=== PATIENT | female | born 1955 | race Caucasian/White ===

== ENCOUNTER 2023-12-29 18:06 | Emergency (ER) | payer OTHER, MEDICARE, SELFPAY ==
[2023-12-29 18:13] VITALS: BP 213/119
[2023-12-29 21:12] VITALS: BP 196/100
[2023-12-29 21:22] LABS: % Eosinophils 3.1 % (0-6); % Monocytes 4.7 % (1.7-9.3); % Neutrophils 77.2 % (42.2-75.2); Absolute Basophils 0.2 10^3/uL (0-0.2); Absolute Eosinophils 0.4 10^3/uL (0-0.7); Absolute Immature Granulocytes 0.2 10^3/uL (0-0.05); Absolute Lymphocytes 1.9 10^3/uL (1.2-3.4); Absolute Monocytes 0.7 10^3/uL (0.1-0.6); Absolute Neutrophils 11.1 10^3/uL (1.4-6.5); Hemoglobin 16.8 g/dL (12.0-16.0); Mean Corp Hgb Conc. 34.3 g/dL (33.0-37.0); Mean Corpuscular Hgb 30.2 pg (27.0-31.0); Mean Corpuscular Volume 88.1 fL (81.0-99.0); Mean Platelet Volume 8.9 fL (7.4-10.4); Nucleated Red Blood Cells % 0 %; Platelet Count 555 10^3/uL (130-400); Red Blood Cell Count 5.56 10^6/uL (4.20-5.40); Red Cell Dist. Width 15.2 % (11.5-14.5); White Blood Cell Count 14.4 10^3/uL (4.8-10.8)
--- NOTE | 2023-12-29 21:35 | ED.GENMED ---
History of Present Illness
<ANTONIA Patricia - Last Filed: 12/29/23 22:51>
General
Chief Complaint: Facial Problem
Source: patient
Time Seen by Provider: 12/29/23 19:28
Nursing documentation reviewed up to this point in time: agreed with
Travel History
Have you had any contact with someone who has COVID-19?: No
Do you have any symptoms of coronavirus? Fever > 100 degrees, chills, cough, shortness of breath, sore throat, loss of taste or smell, muscle aches, or headache?: No
History of Present Illness
History of Present Illness:
Patient is a 68-year-old female who presents to the ER for evaluation. She reports since last week she has had intermittent sharp jolt like pain to the left side of her face. She feels it in the front of her ear/left face left temporal area and
head. She does have a headache with this. She is unable to lay on the left side while she sleeps at nighttime. She has tried ibuprofen and Tylenol without relief. She denies any recent trauma. She denies any associated fever or chills. She
denies any nausea. Today she felt little dizzy with symptoms. She denies any actual neck pain. She denies any rash.
Past History
<ANTONIA Patricia - Last Filed: 12/29/23 22:51>
Past History
ED Past Medical History: HTN and Other (PNA); Negative NIDDM
ED Past Surgical History: Gynecological (Hysterectomy) and Orthopedic (Left meniscus repair)
Social History
Tobacco: Non-smoker
Alcohol: Occasional
Personal: Single
Living: with family
Review of Systems
<ANTONIA Patricia - Last Filed: 12/29/23 22:51>
Review of Systems
Allergies reviewed?: Yes
All Other Systems: ROS reviewed and negative except as documented in HPI and ROS
Constitutional: Reports no symptoms
Respiratory: Reports no symptoms
Cardiac: Reports no symptoms
ABD/GI: Reports no symptoms; Denies abdominal pain, nausea or vomiting
: Reports no symptoms
Musculoskeletal: Reports no symptoms
Neurological: Reports dizzy and other (intermittent frequent 'jolts of pain' to left face/head ); Denies weakness or numbness
Endocrine: Reports no symptoms
Hematologic/Lymphatic: Reports no symptoms
Psychiatric: Reports no symptoms
Phy Exam
<ANTONIA Patricia - Last Filed: 12/29/23 22:51>
General Physical Exam
General Presentation: no apparent distress
General age: appears stated age
General Skin: warm and dry
General Habitus: normal
General Mental: alert
General Hydration: appears well hydrated
ENT Exam
ENT Exam: EOMI and neck supple
Eye Exam
Eye Exam: PERRL and EOMI
Eye Exam General: PERRL: bilateral and EOM intact: bilateral
Pupil Exam: Bilateral: round and reactive
Neurological Exam
Neurological Exam: alert, oriented x3, no sensory deficits and speech normal
[place] Coma Scale
Eye Opening: Spontaneous
Verbal Response: Oriented
Motor Response: Obeys Commands
GCS Total Score: 15
Musculoskeletal Exam
Musculoskeletal Exam: full ROM and other (non tender to temporal artery )
<Sylvia Nunez MD - Last Filed: 12/29/23 22:46>
[place] Coma Scale
GCS Total Score: 15
Course
<ANTONIA Patricia - Last Filed: 12/29/23 22:51>
Orders/Labs/Results
Orders:
Orders
12/29/23 20:44
Vital Signs- Treatment ONCE
Frequency: Once
12/29/23 20:45
CT Head & Neck Angio W/wo IV Urgent
Comment:
Reason For Exam: left sided headache/neck pain
IV Insert/Care/Rem.- Treatment PRN
12/29/23 21:01
Complete Blood Count/With Diff Urgent
Comprehensive Metabolic Panel Urgent
12/29/23 22:44
Gabapentin [Neurontin] 300 mg PO NOW STA
Abnormal Lab Results
12/29/23
21:01
WBC 14.4 H 10^3/uL
(4.8-10.8)
RBC 5.56 H 10^6/uL
(4.20-5.40)
Hgb 16.8 H g/dL
(12.0-16.0)
Hct 49.0 H %
(37.0-47.0)
RDW 15.2 H %
(11.5-14.5)
Plt Count 555 H 10^3/uL
(130-400)
Abs Immat Gran (auto) 0.2 H 10^3/uL
(0-0.05)
Absolute Neuts (auto) 11.1 H 10^3/uL
(1.4-6.5)
Absolute Monos (auto) 0.7 H 10^3/uL
(0.1-0.6)
Immature Gran % 1.0 H %
(0-0.5)
Neutrophils % 77.2 H %
(42.2-75.2)
Lymphocytes % 13.0 L %
(20.5-51.1)
BUN 28 H mg/dl
(7-17)
12/29/23 21:01
12/29/23 21:01
Vital Signs
Initial and Last Documented VS:
Initial Vital Signs
Temp Pulse Resp BP Pulse Ox
97.4 F 90 18 213/119 97
12/29/23 18:13 12/29/23 18:13 02/17/24 18:13 12/29/23 18:13 12/29/23 18:13
Last Documented Vital Signs
Temp Pulse Resp BP Pulse Ox
97.7 F 87 18 196/100 95
12/29/23 21:12 12/29/23 21:12 12/29/23 21:12 12/29/23 21:12 12/29/23 21:12
Toddler Nanny consulted with Physician
Toddler Nanny consulted with physician?: Yes
Name of Physician Consulted: papo
<Sylvia Nunez MD - Last Filed: 12/29/23 22:46>
Orders/Labs/Results
Orders:
Orders
12/29/23 20:44
Vital Signs- Treatment ONCE
Frequency: Once
12/29/23 20:45
CT Head & Neck Angio W/wo IV Urgent
Comment:
Reason For Exam: left sided headache/neck pain
IV Insert/Care/Rem.- Treatment PRN
12/29/23 21:01
Complete Blood Count/With Diff Urgent
Comprehensive Metabolic Panel Urgent
12/29/23 22:44
Gabapentin [Neurontin] 300 mg PO NOW STA
Abnormal Lab Results
12/29/23
21:01
WBC 14.4 H 10^3/uL
(4.8-10.8)
RBC 5.56 H 10^6/uL
(4.20-5.40)
Hgb 16.8 H g/dL
(12.0-16.0)
Hct 49.0 H %
(37.0-47.0)
RDW 15.2 H %
(11.5-14.5)
Plt Count 555 H 10^3/uL
(130-400)
Abs Immat Gran (auto) 0.2 H 10^3/uL
(0-0.05)
Absolute Neuts (auto) 11.1 H 10^3/uL
(1.4-6.5)
Absolute Monos (auto) 0.7 H 10^3/uL
(0.1-0.6)
Immature Gran % 1.0 H %
(0-0.5)
Neutrophils % 77.2 H %
(42.2-75.2)
Lymphocytes % 13.0 L %
(20.5-51.1)
BUN 28 H mg/dl
(7-17)
12/29/23 21:01
12/29/23 21:01
Vital Signs
Initial and Last Documented VS:
Initial Vital Signs
Temp Pulse Resp BP Pulse Ox
97.4 F 90 18 213/119 97
12/29/23 18:13 12/29/23 18:13 12/29/23 18:13 12/29/23 18:13 12/29/23 18:13
Last Documented Vital Signs
Temp Pulse Resp BP Pulse Ox
97.7 F 87 18 196/100 95
12/29/23 21:12 12/29/23 21:12 12/29/23 21:12 12/29/23 21:12 12/29/23 21:12
<ANTONIA Patricia - Last Filed: 12/29/23 22:51>
MDM/Problems Addressed
Differential Diagnosis Includes:
Not limited to trigeminal neuralgia, zoster, less likely temporal arteritis as patient is nontender over temporal region, less likely intracranial tumor, dissection
MDM/Problems Addressed:
Symptoms consistent with likely trigeminal neuralgia. Patient no acute distress. She describes intermittent sharp jolting type pain to the left side of her face anterior to her ear. She denies any fever or chills. Patient in no acute distress
here in the ER no rash on exam. Patient presently without any symptoms.
She is nontoxic. Case discussed ED physician CT a head and neck angio performed no acute findings
As discussed ED physician will start gabapentin with close outpatient follow-up family doctor. Topamax was considered however we will hold off due to potential side effects
Chronic conditions affecting care:
Hypertension
<ANTONIA Patricia - Last Filed: 12/29/23 22:51>
*Radiology
Radiology exam reviewed: radiology read reviewed
*Pulse Oximetry
Patient hypoxic: no
*Critical Care Note
Total Time (30-74mins, 75-104mins- exclusive of procedures): Not Applicable
ED Attending Note
<ANTONIA Patricia - Last Filed: 12/29/23 22:51>
-
Portions of this chart may have been created with voice recognition software.� Occasional wrong word or��sound alike� substitutions may have occurred due to the inherent limitations of voice recognition software.
<Sylvia Nunez MD - Last Filed: 12/29/23 22:46>
ED Attending Note
Patient seen and examined by attending physician: Yes
I performed the substantive portion of visit, reviewed & personally made and approve the management plan that is documented in note by myself or RONY.: Yes
ED Attending Note:
68-year-old female who says that all week long she has had episodes of severe pain originating from the preauricular area and spreading across the left side of her face sometimes causing her left sided tear. Pain lasted 5 seconds at a time and then
goes away. It is interrupting her sleep. She denies associated headache, dizziness, numbness, tingling, focal weakness, double vision, facial droop, recent trauma, fever, chills, photophobia, or other complaints. On exam, no temporal artery
tenderness to palpation, neurologically intact. Comfortable. Clinically suspect trigeminal neuralgia as potential etiology. CTA generally unremarkable. Will refer for outpatient follow-up. I am reluctant to start carbamazepine at this time
given the potential for bloodline related effects such as neutropenia etc. and recommend that she discuss this with her primary this week. In the interim, will try to pain with Neurontin. Patient is agreeable to this and understands reasons return
to the ER for
Discharge Plan
Departure
Patient Disposition: Home (Routine Discharge)
Date of Disposition: 12/29/23
Time of Disposition: 22:48
Patient with high blood pressure during this ER visit?: Yes
Condition: Fair
Covid-19: Not Applicable
Discharge Problem:
trigeminal neuralgia
Instructions: Trigeminal neuralgia, BLOOD PRESSURE
Prescriptions:
New
gabapentin 300 mg capsule
300 mg PO TID PRN (Reason: pain ) Qty: 40 0RF
No Action
mupirocin 2 % ointment
1 applic topical DAILY
doxycycline hyclate 100 mg Capsule
100 mg PO Q12 Qty: 10 0RF
hydralazine 25 mg Tablet
50 mg PO TID Qty: 90 0RF
Referrals:
Efe Branham, [Family Provider] -
Activity Restrictions/Additional Instructions:
Symptoms are consistent most likely with trigeminal neuralgia. As discussed a prescription for gabapentin was sent to your pharmacy. Take as directed. This may cause drowsiness. Follow-up closely with your family doctor for further reevaluation
of symptoms. Please call Sunday for an appointment in the next 2 days. Have your family doctor review your formal CAT scan report.
We considered Topamax but we will hold off due to side effects however this may be a future treatment possibility.
Return to the ER if any worsening of symptoms
Interventions
Interventions:
*Risk Screen - Suicide Last Done: 12/29/23 18:56
*General Assessment Last Done: 12/29/23 18:56
*Neglect/Abuse Screening Last Done: 12/29/23 18:56
ED- Neurological Assessment Last Done: 12/29/23 18:57
ED-Skin Assessment Last Done: 12/29/23 18:57
[2023-12-29 21:44] LABS: ALT (SGPT) 25 U/L (0-35); AST (SGOT) 29 U/L (14-36); Albumin 4.6 g/dl (3.5-5.0); Alkaline Phosphatase 124 U/L (38-126); Blood Urea Nitrogen 28 mg/dl (7-17); Calcium 9.9 mg/dl (8.4-10.2); Carbon Dioxide 27 mmol/L (22-30); Chloride 103 mmol/L (98-107); Glucose 89 mg/dl (70-99); Potassium 4.8 mmol/L (3.5-5.1); Sodium 136 mmol/L (135-145); Total Bilirubin 0.6 mg/dl (0.2-1.3); Total Protein 7.1 g/dl (6.3-8.2); eGFR > 60.00
[2023-12-29] MEDS: NEURONTIN 300 MG PO (22:48)
[2023-12-29 22:49] VITALS: BP 190/108
== END 2023-12-29 23:00 | disposition home or self-care (01) ==
LOC: EMR 18:06
PROVIDERS: Nurse Practitioner; EMERGENCY PHYSICIAN Emergency Medicine; FAMILY PHYSICIAN Family Medicine
DX: G50.0 Trigeminal neuralgia (principal); I10 Essential (primary) hypertension
CPT/HCPCS: 99285; 70496; 70498; 80053; 85025; Q9967

== ENCOUNTER 2025-03-30 10:02 | Emergency (ER) | payer OTHER, MEDICARE, SELFPAY ==
[2025-03-30 10:11] VITALS: BP 173/104
--- NOTE | 2025-03-30 11:27 | ED.GENMED ---
History of Present Illness
General
Chief Complaint: Fall
Source: patient
Exam Limitations: none
Time Seen by Provider: 03/30/25 11:06
Nursing documentation reviewed up to this point in time: agreed with
History of Present Illness
History of Present Illness:
Patient is a 69-year-old female with history hypertension who presents to the emergency department with right flank pain after mechanical fall Sunday. Patient states she tripped over her ottoman late Sunday night as she was going to make sure
that her front door was locked. She states she landed on her right side on carpeted dwain with cement underneath. She was able to get up immediately following fall and did not have pain initially. Patient is confident that she did not hit her
head or lose consciousness.
She began to notice mild discomfort in her right flank on Sunday which has been progressively worsening since. Today patient is having significant pain in her right flank region much worse with movement.
Patient denies any chest pain, shortness of breath/difficulty breathing. She denies any neck pain. Patient denies any pain or numbness/tingling in the lower extremities. Patient has been urinating without difficulty. No abdominal pain. Patient
is ambulatory with steady gait.
She does not take any blood thinners.
Past History
Past History
ED Past Medical History: HTN and Other (PNA); Negative NIDDM
ED Past Surgical History: Gynecological (Hysterectomy) and Orthopedic (Left meniscus repair)
Social History
Tobacco: Non-smoker
Alcohol: Occasional
Personal: Single
Living: with family
Review of Systems
Review of Systems
Allergies reviewed?: Yes
All Other Systems: ROS reviewed and negative except as documented in HPI and ROS
Phy Exam
Physical Exam
Physical Exam:
Vitals: Hypertensive on arrival, otherwise vital signs stable. Afebrile
General: Patient is well appearing, no acute distress
Skin: Warm and dry, no rashes or lesions
Head: Normocephalic, atraumatic
Eyes: Sclera nonicteric.
Throat: Protecting airway
Neck: Normal ROM, no cervical spine tenderness, no meningismus
Cardiac: Regular rate and rhythm, no murmurs.
Pulm: Normal respiratory effort, no wheezes, rales, rhonchi heard on exam
.
Abdomen: Abdomen soft and nontender. No ecchymoses.
Back: Area of ecchymosis and reproducible tenderness to right posterior ribs/flank area. No crepitus
Extremities: Ecchymosis to right upper arm with mild reproducible tenderness. No obvious deformity of RUE with excellent ROM in right elbow and right shoulder. LUE and b/l lower extremities atraumatic and nontender with full ROM.
Neuro: AAOx3. Grossly intact.
Psychiatric: Normal affect.
Course
Orders/Labs/Results
Orders:
Orders
03/30/25 11:21
Acetaminophen [Tylenol] 650 mg PO NOW STA
Lidocaine [Lidocaine 4% Patch] 1 patch TOPICAL NOW STA
Apply Lidocaine patch(s) to:: R flank
Humerus, Right 2 Views [CR Humerus - Right Min 2 View*] Urgent
Comment:
Reason For Exam: Fall
Ribs, Right 3 View W/PA Chest [CR Ribs-right 3 Vw W/pa Chest*] Urgent
Comment:
Reason For Exam: Fall
03/30/25 12:31
Ketorolac [Toradol] 15 mg IM NOW STA
03/30/25 13:11
Incentive Spirometry [Rx Incentive Spirometry] [RESP] Urgent
Frequency: q1h while awake
Vital Signs
Initial and Last Documented VS:
Initial Vital Signs
Temp Pulse Resp BP Pulse Ox
98.3 F 92 18 173/104 98
03/30/25 10:11 03/30/25 10:11 03/30/25 10:11 03/30/25 10:11 03/30/25 10:11
Last Documented Vital Signs
Temp Pulse Resp BP Pulse Ox
98.3 F 87 16 147/80 98
03/30/25 10:11 03/30/25 13:30 03/30/25 13:30 03/30/25 13:30 03/30/25 13:30
MDM/Problems Addressed
Differential Diagnosis Includes:
Not limited to: rib fracture, rib contusion, muscle spasm, pneumothroax, etc
MDM/Problems Addressed:
69 year old female presenting with right flank discomfort following mechanical trip and fall 3 days ago. Fall was not associated with any head strike or loss of consciousness. Patient not on any blood thinners. She is ambulatory with steady gait
and denies any pain to her extremities. She did notice a bruise to her right arm, although denies significant pain in the area. Vitals and physical exam as above.
Patient is alert and oriented x 3 with no focal neurologic deficits. She does have a steady gait w/ full range of motion in b/l lower extremities. Ecchymosis to right upper arm noted although she has full range of motion and no other evidence of
traumatic injuries. There is bruising noted to right flank/right posterior lower ribs. Will obtain rib x-ray and x-ray of right humerus given significant ecchymosis. We treat pain with lidocaine patch, Tylenol and reassess.
Update: x-ray imaging negative for fracture. Suspect possible rib contusion although did discuss with patient possibly missing small nondisplaced rib fracture. However � patients pain seems to be under well control in ED. Feel stable for discharge
home with primary care f/u. Will provide incentive spirometer. Advised rest, ice/heat. NSAIDS/tylenol for pain. Patient comfortable w/ plan.
Chronic conditions affecting care:
N/A
Acute Exacerbation and/or Progression of Chronic Illness:
N/A
*Radiology
Radiology exam reviewed: preliminary read by ED provider (right rib xray and humerus xray reviewed by me - no acute fracture) and radiology read reviewed
*Pulse Oximetry
Patient hypoxic: no
*EKG
Interpreted by ED Provider?: NA
*Edge Stainer Machine Interpretation
Rate: Edge Stainer Machine- N/A
*Critical Care Note
Total Time (30-74mins, 75-104mins- exclusive of procedures): Not Applicable
ED Attending Note
-
Portions of this chart may have been created with voice recognition software.� Occasional wrong word or��sound alike� substitutions may have occurred due to the inherent limitations of voice recognition software.
Discharge Plan
Departure
Patient Disposition: Home (Routine Discharge)
Date of Disposition: 03/30/25
Time of Disposition: 13:13
Patient with high blood pressure during this ER visit?: Yes
Condition: Good
Covid-19: Not Applicable
Discharge Problem:
Fall, Contusion of rib on right side, Contusion of arm, right
Instructions: Contusion (DC), Rib fracture or bruised rib - ED discharge instructions, BLOOD PRESSURE
Prescriptions:
New
lidocaine 5 % adhesive patch,medicated
1 patch topical DAILY Qty: 15 0RF
Rx Instructions:
to affected area
No Action
mupirocin 2 % ointment
1 applic topical DAILY
doxycycline hyclate 100 mg Capsule
100 mg PO Q12 Qty: 10 0RF
hydralazine 25 mg Tablet
50 mg PO TID Qty: 90 0RF
gabapentin 300 mg capsule
300 mg PO TID PRN (Reason: pain ) Qty: 40 0RF
Referrals:
Efe Branham, DO [Family Provider] - Follow up in 5-7 days
Stand Alone Forms: Return to Work
Activity Restrictions/Additional Instructions:
RETURN TO THE EMERGENCY DEPARTMENT WITH ANY FEVER, SHORTNESS OF BREATH/DIFFICULTY BREATHING, COUGH, INTRACTABLE PAIN, SEVERE ABDOMINAL PAIN, WORSENING CURRENT SYMPTOMS, OR ANY OTHER CONCERNS
- As discussed�your x-ray imaging showed no evidence of acute fracture today of your right ribs or right humerus. I suspect you likely sustained a contusion to your ribs although we are unable to completely exclude a nondisplaced rib fracture.
- Prescription for lidocaine patches have been sent to your pharmacy. You should continue to take Tylenol and/or Motrin as needed for discomfort. You can apply ice/heat to the affected area.
- Continue to use the incentive spirometer 10 times per hour when awake.
- Follow-up with your primary care for further evaluation and to ensure that symptoms are improving
Monitor your symptoms closely and return to the emergency department with any acute worsening/new symptoms or any other concerns
Interventions
Interventions:
*Nursing Disposition Last Done: 03/30/25 13:37
ED-Musculoskeletal Assessment Last Done: 03/30/25 11:42
ED- Neurological Assessment Last Done: 03/30/25 11:42
ED-Skin Assessment Last Done: 03/30/25 11:42
Discharge Date and Time
Discharge Date/Time: 03/30/25 13:40
Print Language: BELARUSIAN
[2025-03-30] MEDS: LIDOCAINE 4% PATCH 1 PATCH TOPICAL (11:37)
[2025-03-30] MEDS: TYLENOL 650 MG PO (11:37)
[2025-03-30] MEDS: TORADOL 15 MG IM (12:45)
[2025-03-30 13:30] VITALS: BP 147/80
== END 2025-03-30 13:40 | disposition home or self-care (01) ==
LOC: EMR 10:02
PROVIDERS: EMERGENCY PHYSICIAN Emergency Medicine; FAMILY PHYSICIAN Family Medicine
DX: S20.211A Contusion of right front wall of thorax, initial encounter (principal); S40.021A Contusion of right upper arm, initial encounter; W22.8XXA Striking against or struck by other objects, initial encounter; I10 Essential (primary) hypertension; Z90.710 Acquired absence of both cervix and uterus
CPT/HCPCS: 99283; 96372; 71101; 73060

== ENCOUNTER 2025-10-09 23:00 | Inpatient (IN) | payer OTHER, SELFPAY ==
[2025-10-09 17:18] VITALS: BP 147/107
[2025-10-09 19:07] VITALS: BMI 28.4
[2025-10-09 19:35] LABS: Hematocrit 50.8 % (37.0-47.0); Hemoglobin 16.4 g/dL (12.0-16.0); Mean Corp Hgb Conc. 32.3 g/dL (33.0-37.0); Mean Corpuscular Volume 81.0 fL (81.0-99.0); Nucleated Red Blood Cells % 0 %; Platelet Count 381 10^3/uL (130-400); Red Cell Dist. Width 20.0 % (11.5-14.5)
[2025-10-09 19:44] LABS: INR 1.44; PT 17.7 Sec (11.4-14.6)
[2025-10-09 19:45] LABS: APTT 33.6 Sec (23.4-35.0)
[2025-10-09 19:54] LABS: ALT (SGPT) 24 U/L (0-35); AST (SGOT) 22 U/L (14-36); Albumin 3.5 g/dl (3.5-5.0); Alkaline Phosphatase 147 U/L (38-126); Blood Urea Nitrogen 26 mg/dl (7-17); Calcium 8.8 mg/dl (8.4-10.2); Carbon Dioxide 24 mmol/L (22-30); Chloride 106 mmol/L (98-107); Estimated Creatinine Clearance 41 ml/min; Glucose 94 mg/dl (70-99); Potassium 4.8 mmol/L (3.5-5.1); Sodium 134 mmol/L (135-145); Total Protein 5.9 g/dl (6.3-8.2); eGFR 54.39
[2025-10-09 19:55] VITALS: BP 135/95
[2025-10-09 20:00] VITALS: BP 134/92
[2025-10-09 20:13] LABS: Troponin I 0.262 ng/ml
--- NOTE | 2025-10-09 20:14 | ED.GENMED ---
History of Present Illness
<Mamadou Rodriguez MD, Resident - Last Filed: 10/09/25 22:27>
General
Chief Complaint: Swelling
Source: patient
Time Seen by Provider: 10/09/25 19:54
History of Present Illness
History of Present Illness:
Patient is a 70-year-old female with past medical history significant for essential hypertension, who is here for evaluation of bilateral leg swelling, left lower extremity greater than right lower extremity.
She was in her usual state of health 4 days ago,when she noticed some mild swelling on her legs, which became a little bit prominent on Sunday and then it progressed further on Sunday. Her left lower leg is more swollen as compared to the right
leg and is warm and red as compared to the right one.
She was at her primary care physician office a couple of days ago for evaluation of chronic cough, as per the patient, he was concerned about a mass in her lung and she was supposed to have a CT scan of chest done but was awaiting her serum
creatinine levels. She also saw a trial paralegal recently because of proteinuria but all her tests came back fine from nephrology perspective.
She is seeing wound care for a shallow ulcer on right lower leg, after removal of a mole from that site.
Other than the swelling, review of system is negative. Denies any fever, chills, shortness of breath, chest pain, lightheadedness or syncope.
Past History
<Mamadou Rodriguez MD, Resident - Last Filed: 10/09/25 22:27>
Past History
ED Past Medical History: HTN and Other (PNA); Negative NIDDM
ED Past Surgical History: Gynecological (Hysterectomy) and Orthopedic (Left meniscus repair)
Social History
Tobacco: Non-smoker
Alcohol: Occasional
Personal: Single
Living: alone (Independent in activities of daily living)
Review of Systems
<Mamadou Rodriguez MD, Resident - Last Filed: 10/09/25 22:27>
Review of Systems
Constitutional: Reports fever and fatigue
EENT: Reports no symptoms
Respiratory: Reports cough
Cardiac: Reports no symptoms
ABD/GI: Reports no symptoms
: Reports no symptoms
Musculoskeletal: Reports edema (Bilateral leg swelling)
Neurological: Reports no symptoms
Hematologic/Lymphatic: Reports no symptoms
Phy Exam
<Mamadou Rodriguez MD, Resident - Last Filed: 10/09/25 22:27>
General Physical Exam
General Presentation: well appearing and no apparent distress
General age: appears stated age
General Skin: warm and dry
General Habitus: normal
General Mental: alert
General Hydration: appears well hydrated
Cardiovascular Exam
Cardiovascular Exam: regular rate/rhythm and tachycardia
Pulmonary Exam
Pulmonary Exam: other (Breath sounds decreased on the right side)
Gastrointestinal Exam
Gastrointestinal Exam: normal bowel sounds, non tender and soft
Neurological Exam
Neurological Exam: alert, oriented x3 and no motor deficits
Musculoskeletal Exam
Musculoskeletal Exam: edema (Bilateral pedal edema extending up to the knees, LLE>RLE, pedal pulses palpable, left lower extremity is warm and red)
Psychiatric Exam
Psychiatric Exam: normal mood/affect
Scores
<Mamadou Rodriguez MD, Resident - Last Filed: 10/09/25 22:27>
Heart Failure Risk
Heart Failure Risk Score: Not Applicable
Course
<Mamadou Rodriguez MD, Resident - Last Filed: 10/09/25 22:27>
Orders/Labs/Results
Orders:
Orders
10/09/25 17:31
Lactic Acid Q4H
Comment: ON ICE, CANCEL 2ND ORDER IF FIRST LACTIC ACID LEVEL <2
10/09/25 19:17
Electrocardiogram (*1) Urgent
Reason for Study: Other
Other Reason for Exam: Edema
EKG- Treatment ONCE
10/09/25 19:22
Complete Blood Count/With Diff Urgent
Comprehensive Metabolic Panel Urgent
NT-proBNP Urgent
PT/INR [Prothrombin Time] Urgent
PTT Urgent
Troponin I Urgent
10/09/25 20:15
Legs, Bilateral US [US Periph Venous LOWER Ext Tyson] Urgent
Comment:
Reason For Exam: Bilateral leg swelling
10/09/25 21:43
Urinalysis Reflex To Culture Urgent
Date Specimen was Collected: 10/09/25
Time Specimen was Collected: 21:32
Urine Microscopic Reflex Cult Urgent
Urine Culture Urgent
GERARDO Source: U
Specimen Description:
Date Specimen was Collected: 10/09/25
Time Specimen was Collected: 21:32
10/09/25 22:15
Lactate Level [Lactic Acid] Urgent
Blood Culture Q30M
GERARDO Source: Blood/Venous
Specimen Description:
10/09/25 22:16
Vancomycin [Vancocin] 1,500 mg 0.9% Sodium Chloride 500 ml [Nss] 500 ml IV NOW
10/09/25 22:45
Blood Culture Q30M
GERARDO Source: Blood/Venous
Specimen Description:
Abnormal Lab Results
10/09/25 10/09/25
19:22 21:43
WBC 16.5 H 10^3/uL
(4.8-10.8)
RBC 6.27 H 10^6/uL
(4.20-5.40)
Hgb 16.4 H g/dL
(12.0-16.0)
Hct 50.8 H %
(37.0-47.0)
MCH 26.2 L pg
(27.0-31.0)
MCHC 32.3 L g/dL
(33.0-37.0)
RDW 20.0 H %
(11.5-14.5)
MPV 10.6 H fL
(7.4-10.4)
Abs Immat Gran (auto) 0.1 H 10^3/uL
(0-0.05)
Absolute Neuts (auto) 14.1 H 10^3/uL
(1.4-6.5)
Absolute Lymphs (auto) 1.1 L 10^3/uL
(1.2-3.4)
Absolute Monos (auto) 0.8 H 10^3/uL
(0.1-0.6)
Immature Gran % 0.7 H %
(0-0.5)
Neutrophils % 85.8 H %
(42.2-75.2)
Lymphocytes % 6.7 L %
(20.5-51.1)
PT 17.7 H Sec
(11.4-14.6)
Sodium 134 L mmol/L
(135-145)
BUN 26 H mg/dl
(7-17)
Creatinine 1.1 H mg/dL
(0.6-1.0)
Total Bilirubin 1.6 H mg/dl
(0.2-1.3)
Alkaline Phosphatase 147 H U/L
(38-126)
Troponin I 0.262 H* ng/ml
Total Protein 5.9 L g/dl
(6.3-8.2)
Ur Occult Blood Reflex 2+ A
(Negative)
Leukocyte Esterase Rfl 2+ A
(Negative)
Urine WBC (Reflex) 11-15 A /HPF
(0-5)
Urine Bacteria (Reflex) Many A
(Negative)
Urine Albumin (Reflex) 4+ A
(Neg - Trace)
10/09/25 19:22
10/09/25 19:22
Vital Signs
Initial and Last Documented VS:
Initial Vital Signs
Temp Pulse Resp BP Pulse Ox
99.5 F 127 18 147/107 97
10/09/25 17:18 10/09/25 17:18 10/09/25 17:18 10/09/25 17:18 10/09/25 17:18
Last Documented Vital Signs
Temp Pulse Resp BP Pulse Ox
99.5 F 111 31 142/99 97
10/09/25 17:18 10/09/25 22:00 10/09/25 22:00 10/09/25 22:00 10/09/25 20:15
<Brent Landin MD - Last Filed: 10/09/25 22:16>
Orders/Labs/Results
Orders:
Orders
10/09/25 17:31
Lactic Acid Q4H
Comment: ON ICE, CANCEL 2ND ORDER IF FIRST LACTIC ACID LEVEL <2
10/09/25 19:17
Electrocardiogram (*1) Urgent
Reason for Study: Other
Other Reason for Exam: Edema
EKG- Treatment ONCE
10/09/25 19:22
Complete Blood Count/With Diff Urgent
Comprehensive Metabolic Panel Urgent
NT-proBNP Urgent
PT/INR [Prothrombin Time] Urgent
PTT Urgent
Troponin I Urgent
10/09/25 20:15
Legs, Bilateral US [US Periph Venous LOWER Ext Tyson] Urgent
Comment:
Reason For Exam: Bilateral leg swelling
10/09/25 21:43
Urinalysis Reflex To Culture Urgent
Date Specimen was Collected: 10/09/25
Time Specimen was Collected: 21:32
Urine Microscopic Reflex Cult Urgent
Urine Culture Urgent
GERARDO Source: U
Specimen Description:
Date Specimen was Collected: 10/09/25
Time Specimen was Collected: 21:32
10/09/25 22:15
Lactate Level [Lactic Acid] Urgent
Blood Culture Q30M
GERARDO Source: Blood/Venous
Specimen Description:
10/09/25 22:16
Vancomycin [Vancocin] 1,500 mg 0.9% Sodium Chloride 500 ml [Nss] 500 ml IV NOW
10/09/25 22:45
Blood Culture Q30M
GERARDO Source: Blood/Venous
Specimen Description:
Abnormal Lab Results
10/09/25 10/09/25
19:22 21:43
WBC 16.5 H 10^3/uL
(4.8-10.8)
RBC 6.27 H 10^6/uL
(4.20-5.40)
Hgb 16.4 H g/dL
(12.0-16.0)
Hct 50.8 H %
(37.0-47.0)
MCH 26.2 L pg
(27.0-31.0)
MCHC 32.3 L g/dL
(33.0-37.0)
RDW 20.0 H %
(11.5-14.5)
MPV 10.6 H fL
(7.4-10.4)
Abs Immat Gran (auto) 0.1 H 10^3/uL
(0-0.05)
Absolute Neuts (auto) 14.1 H 10^3/uL
(1.4-6.5)
Absolute Lymphs (auto) 1.1 L 10^3/uL
(1.2-3.4)
Absolute Monos (auto) 0.8 H 10^3/uL
(0.1-0.6)
Immature Gran % 0.7 H %
(0-0.5)
Neutrophils % 85.8 H %
(42.2-75.2)
Lymphocytes % 6.7 L %
(20.5-51.1)
PT 17.7 H Sec
(11.4-14.6)
Sodium 134 L mmol/L
(135-145)
BUN 26 H mg/dl
(7-17)
Creatinine 1.1 H mg/dL
(0.6-1.0)
Total Bilirubin 1.6 H mg/dl
(0.2-1.3)
Alkaline Phosphatase 147 H U/L
(38-126)
Troponin I 0.262 H* ng/ml
Total Protein 5.9 L g/dl
(6.3-8.2)
Ur Occult Blood Reflex 2+ A
(Negative)
Leukocyte Esterase Rfl 2+ A
(Negative)
Urine WBC (Reflex) 11-15 A /HPF
(0-5)
Urine Bacteria (Reflex) Many A
(Negative)
Urine Albumin (Reflex) 4+ A
(Neg - Trace)
10/09/25 19:22
10/09/25 19:22
Vital Signs
Initial and Last Documented VS:
Initial Vital Signs
Temp Pulse Resp BP Pulse Ox
99.5 F 127 18 147/107 97
10/09/25 17:18 10/09/25 17:18 10/09/25 17:18 10/09/25 17:18 10/09/25 17:18
Last Documented Vital Signs
Temp Pulse Resp BP Pulse Ox
99.5 F 111 31 142/99 97
10/09/25 17:18 10/09/25 22:00 10/09/25 22:00 10/09/25 22:00 10/09/25 20:15
<Mamadou Rodriguez MD, Resident - Last Filed: 10/09/25 22:27>
MDM/Problems Addressed
Differential Diagnosis Includes:
Sepsis secondary to cellulitis
Deep venous thrombosis
Mismatch perfusion-elevated troponins
Heart failure
Chronic lymphedema
MDM/Problems Addressed:
Patient is here for bilateral leg swelling left lower extremity greater than right lower extremity, warm and red left lower extremity, small shallow ulcer on right lower leg which is secondary to mold removal at bedside.
On blood work, there is leukocytosis, polycythemia? Serum creatinine 1.1, total bilirubin 1.6, troponin elevated
Bilateral peripheral venous ultrasound, with no evidence of deep venous thrombosis.
Given her tachycardia, leukocytosis, fever and source of infection with warm and red swollen right leg, patient fulfills criteria for sepsis
Since patient responded to IV vancomycin in the past with continued that
plan to admit for further evaluation
<Mamadou Rodriguez MD, Resident - Last Filed: 10/09/25 22:27>
*Pulse Oximetry
SaO2: 97
Oxygen Mode of Delivery: Room air
Patient hypoxic: no
*Critical Care Note
Total Time (30-74mins, 75-104mins- exclusive of procedures): Not Applicable
ED Attending Note
<Mamadou Rodriguez MD, Resident - Last Filed: 10/09/25 22:27>
-
Portions of this chart may have been created with voice recognition software.� Occasional wrong word or��sound alike� substitutions may have occurred due to the inherent limitations of voice recognition software.
<Brent Landin MD - Last Filed: 10/09/25 22:16>
ED Attending Note
Patient seen and examined by attending physician: Yes
ED Attending Note:
I have seen and evaluated the patient with a [id number] encounter. I have spoken to the resident and involved in the medical history, the physical exam, medical decision making.
Evaluation and management service: agree unless noted differently below.
Results interpretation: agree unless noted differently below.
Focused HPI: 70-year-old female with a past medical history of hypertension who presents to the ER for evaluation of left leg pain and swelling. Patient reports onset of symptoms about a week ago and have been constant and progressive. She says
that she came to the ER because she is now very swollen and having trouble walking due to the pain. She says she had similar symptoms with an infection in the past. She does report that she has had some right leg swelling as well but that this is
status resection of a minor skin lesion. Aside from above symptoms she has not had fever or chills, chest pain, shortness of breath or any other acute complaints.
Physical exam: Awake and alert not in distress. She is tachycardic, mildly tachypneic, temp 37.5 �C. She has bilateral lower extremity edema left slightly greater than right. She has left calf tenderness. Mild erythema of the medial left calf.
She has a minor wound approximately dime sized on the medial right lower leg with small area of surrounding erythema. Good pulses throughout the left lower extremity. Lungs sound clear, no cardiac murmurs appreciated.
Medical Decision Makin-year-old female presents with leg pain and swelling progressive over the past week. Vitals and exam as above. Ultrasound of the legs is negative for DVT. Labs were sent off including a CBC which showed a leukocytosis
to 16.5. Predominant neutrophils on differential. Chemistry shows mild TONYA. She had cardiac enzymes and proBNP sent in triage which were slightly elevated but she does not have any signs of an acute coronary syndrome. Although she has lower
extremity edema she has no rales, no JVD and no symptoms of CHF otherwise. Overall with multiple SIRS criteria and pain, swelling of the leg concerning for possible cellulitis I would treat with antibiotics. Admit for monitoring. Discussed with
hospitalist.
Discharge Plan
Departure
Discharge Problem:
Cellulitis
Prescriptions:
No Action
losartan 50 mg Tablet
50 mg PO DAILY
Referrals:
Efe Branham, DO [Family Provider]
Interventions
Interventions:
*Risk Screen - Suicide Last Done: 10/09/25 17:18
*General Assessment Last Done: 10/09/25 19:56
*Neglect/Abuse Screening Last Done: 10/09/25 19:56
*ED- Fall Risk Assessment Last Done: 10/09/25 19:56
*ED COVID-19 Vaccine History Last Done: 10/09/25 19:56
*ED Influenza Vaccine History Last Done: 10/09/25 19:56
ED- Cardiac Assessment Last Done: 10/09/25 19:56
ED- Pulmonary Assessment Last Done: 10/09/25 19:56
ED-Skin Assessment Last Done: 10/09/25 19:56
Discharge Date and Time
Print Language: YAKUT
[2025-10-09 21:52] LABS: Urine Character Slightly Cloudy (Clear)
[2025-10-09 22:00] VITALS: BP 142/99
[2025-10-09 22:01] LABS: Urine Squamous Cell 0-2 /LPF (Few)
[2025-10-09 22:02] LABS: Urine Red Blood Cell 0-2 /HPF (0-2)
[2025-10-09] MEDS: VANCOCIN 530 MG IV (22:45)
--- NOTE | 2025-10-09 22:57 | HPS.HSE ---
Family Physician
-
Family Physician: Efe Branham
Chief Complaint
-
leg swelling
History of Present Illness
70-year-old female past medical history of bilateral lower extremity cellulitis, hypertension, obesity, presenting for bilateral lower extremity swelling greater in the left leg than the right. 4 days ago she noticed some mild lower extremity
swelling which became prominent 3 days ago. Legs have become more warm and red. Patient denies fevers, chills, shortness of breath, chest pain or dizziness. She denies any chest pain, shortness of breath, weight gain.
She went to see primary care physician couple days ago for postnasal drip and cough for the past week. He performed a chest x-ray and he was concerned about a mass in her lung and she was supposed to have a CT scan of the chest but was awaiting
creatinine level. She recently saw transmission assembler due to proteinuria but the labs were unremarkable.
She had some dry skin in her right calf that was biopsied and since then she has erythema at that site which is stable.
She denies smoking or alcohol use.
Medical History
Past Medical History
Past Medical History: Reports Other (bilateral lower extremity cellulitis, hypertension, obesity,)
Past Surgical History: Reports Other (Gynecological (Hysterectomy) and Orthopedic (Left meniscus repair))
Social History
Tobacco: Non-smoker
Alcohol: None
Drug: None
Family History
Family History: Not pertinent
Allergies / Home Medications
Allergies reflects when Allergies were last updated in [employer].
Home Medications with original date entered in [employer]
Allergy/Medication List:
Allergies
Allergy/AdvReac Type Severity Reaction Status Date / Time
cefadroxil ([facility]) Allergy Unknown Verified 10/09/25 17:18
erythromycin base Allergy Hives Verified 10/09/25 17:18
Penicillins Allergy Rash Verified 10/09/25 17:18
Home Medications
losartan 50 mg tablet 50 mg PO DAILY 10/09/25
Review of Systems
-
History Source: Patient
A 12 point ROS was completed and negative except as noted: Yes
Constitutional: Reports No Symptoms
EENT: Reports No Symptoms
Respiratory: Reports No Symptoms
Cardiac: Reports No Symptoms
Abdomen/GI: Reports No Symptoms
: Reports No Symptoms
Musculoskeletal: Reports No Symptoms
Skin: Reports See HPI
Neurological: Reports No Symptoms
Endocrine: Reports No Symptoms
Hematologic/Lymphatic: Reports No Symptoms
Psych: Reports No Symptoms
Physical Exam
Vital Signs
Vital Signs
Temp Pulse Resp BP Pulse Ox
99.5 F 111 31 142/99 97
10/09/25 17:18 10/09/25 22:00 10/09/25 22:00 10/09/25 22:00 10/09/25 20:15
Physical Exam
General: Well Developed, Well Nourished and No Apparent Distress
HEENT: NormoCephalic, Moist mucous membranes and Atraumatic
Respiratory: Clear
Cardiac: S1/S2 and Regular Rhythm; No Murmur or Rub
GI: Soft, Non Tender, Non Distended and Normal Bowel Sounds; No Organomegaly
Rectal: Deferred by Provider
Musculoskeletal: No Clubbing, No Cyanosis and No Edema
Skin: Other (bilateral leg erythema, edema, right leg erythematous are medial leg ); No Rash
Neuro: Nonfocal/grossly intact
Laboratory Results
-
10/09/25 19:22
10/09/25 19:22
Laboratory Results
PT 17.7 Sec (11.4-14.6) H 10/09/25 19:22
INR 1.44 10/09/25 19:22
APTT 33.6 Sec (23.4-35.0) 10/09/25 19:22
Lactic Acid 0.9 mmol/L (0.7-2.0) 10/09/25 22:40
Total Bilirubin 1.6 mg/dl (0.2-1.3) H 10/09/25 19:22
AST 22 U/L (14-36) 10/09/25 19:22
ALT 24 U/L (0-35) 10/09/25 19:22
Alkaline Phosphatase 147 U/L (38-126) H 10/09/25 19:22
Troponin I 0.262 ng/ml H* 10/09/25 19:22
Data Reviewed
-
Lab Data: Labs Reviewed by me
Old Records: Reviewed
Impression/Plan
-
IMPRESSION:
PLAN:
# Bilateral lower extremity cellulitis
# Prior history of bilateral lower extremity cellulitis
- Patient with tachycardia, leukocytosis
-Venous ultrasound negative for DVT
- Blood cultures pending
-vancomycin
- No signs of congestive heart failure despite cardiac BNP greater than 27,000
# Acute kidney injury
- Hold losartan
- IV fluids
# Medial right lower leg erythema/wound after biopsy
-Stable
- Wound care
# Nonischemic myocardial injury
- Troponin 0.26, continue to trend
- No chest pain
- EKG shows sinus tachycardia, left atrial enlargement, left axis deviation, LVH
# Recent cough/postnasal drip
# Concern for lung mass on CXR
-Check COVID and flu
- Chest x-ray reportedly showed lung mass and CT scan chest was recommended if renal function was normal
- Outpatient follow-up recommended
Essential hypertension
Obesity
History of polycythemia
- Appears stable
DNR/DNI
DVT prophylaxis�heparin
Regular diet
[2025-10-09 23:41] LABS: COVID-19 Antigen Negative (Negative)
[2025-10-10] VITALS (8 sets, daily range): BP systolic 89–144; BP diastolic 69–106; BMI 28.9
--- NOTE | 2025-10-10 01:15 | PTCARENOTE ---
Received patient from ED at approx 0110. Patient ambulated with assistance from stretcher to bed. AAA x 3. Oriented to room. Call tamez in place.
[2025-10-10] MEDS: NSS 1000 IV ×2 (01:46→12:15)
[2025-10-10 02:28] LABS: Troponin I 0.251 ng/ml
[2025-10-10 06:58] LABS: Hematocrit 50.3 % (37.0-47.0); Hemoglobin 16.1 g/dL (12.0-16.0); Mean Corp Hgb Conc. 32.0 g/dL (33.0-37.0); Mean Corpuscular Volume 83.3 fL (81.0-99.0); Nucleated Red Blood Cells % 0 %; Platelet Count 354 10^3/uL (130-400); Red Cell Dist. Width 20.1 % (11.5-14.5)
[2025-10-10 07:42] LABS: Troponin I 0.236 ng/ml
[2025-10-10] MEDS: HEPARIN 5000 UNITS SC (08:02)
[2025-10-10 08:15] LABS: ALT (SGPT) 21 U/L (0-35); AST (SGOT) 23 U/L (14-36); Albumin 3.2 g/dl (3.5-5.0); Alkaline Phosphatase 131 U/L (38-126); Blood Urea Nitrogen 24 mg/dl (7-17); Calcium 8.3 mg/dl (8.4-10.2); Carbon Dioxide 19 mmol/L (22-30); Chloride 108 mmol/L (98-107); Estimated Creatinine Clearance 45 ml/min; Glucose 90 mg/dl (70-99); Potassium 4.8 mmol/L (3.5-5.1); Sodium 134 mmol/L (135-145); Total Protein 5.6 g/dl (6.3-8.2); eGFR > 60.00
--- NOTE | 2025-10-10 08:28 | PHA.VAN.IN ---
Assessment
- Assessment
Renal Function: Appears similar to baseline
- Previous Dosing Experience
Previous Regimen: 1250mg q24h
Date of Regimen: 09/2023
Provided Trough of: n/a
Patient's SCR is: Similar to previous dosing experience
Patient's weight is: Decreased compared to previous dosing experience (67kg (now) vs 77kg (09/2023))
stopped after 2 doses
AUC Dosing Plan
- Dosing Variables
Dosing Weight (kg): 67.132
Dosing CrCl (ml/min): 45
Vd coefficient (L/kg): 0.7
- Empiric Dosing
Initial / Loading Dose: 1500mg 10/09
Maintenance Regimen: 1000mg q24h
Estimated AUC (mcg*h/mL): 520
Estimated Peak (mcg*h/mL): 33.6
Estimated Trough (mcg/ml): 12.9
Estimated Half Life (H): 16.6
Pharmacokinetics Vancomycin I
- -
Patient Age: 70
Patient Sex: Female
Vancomycin Day #: 1
Indication: Skin And Soft Tissue
Requesting Provider: Dr. Skaggs
Pertinent Antimicrobial Allergies:
pcns=rash
cefadroxil=unknown
erythromycin=hives
Height / Weight:
Height 5 ft
Actual Weight 67.132 kg
IBW in k.5
- Vital Signs / Lab Results
Temp Pulse Resp BP Pulse Ox
97.3 F 105 16 136/102 96
10/10/25 07:18 10/10/25 07:18 10/10/25 07:18 10/10/25 07:18 10/10/25 07:18
Lab Results - Hematology
10/09/25 10/10/25
19:22 06:47
WBC 16.5 H 13.6 H
Lab Results - Chemistry
10/09/25 10/10/25
19:22 06:47
BUN 26 H 24 H
Creatinine 1.1 H 1.0
Estimated Creat Clear 41 45
Albumin 3.5 3.2 L
10/09/25 10/09/25 10/09/25
17:31 21:30 22:40
Lactic Acid 0.9 Cancelled 0.9
Lab Results - Urine
10/09/25
21:43
Urine Nitrite (Reflex) Negative
Leukocyte Esterase Rfl 2+ A
Urine WBC (Reflex) 11-15 A
Ur Squamous Epith Cells 0-2
Urine Bacteria (Reflex) Many A
Microbiology Results
10/09/25 23:18 Influenza Types A & B (RAQUEL) - Final
Nasal Swab Negative for Influenza A & B, NAAT
Negative results must be combined with clinical observations
and patient history.
Nucleic Acid Amplification test (NAAT)performed on the
[employer] ID NOW platform.
--- NOTE | 2025-10-10 09:28 | CON.CAR ---
Addendum entered and electronically signed by Emmanuel Rodriguez MD 10/10/25 12:29:
I saw and evaluated the patient, and I provided the substantive portion of the medical decision making.
I reviewed and agree with the note by Ms Lewis and it accurately reflects our care.
I personally performed the medical decision making of the this encounter and my assessment and plan is below:
She tells me that she has gained maybe 6 pounds over the last several months. Additionally, her legs have increased in size. She also has some PND. Will continue IV diuresis for today and tomorrow with echocardiogram on Sunday.
Original Note:
Consultation
Consultation Request
Date/Time Consultation Requested: 10/10/25914
Date/Time Consultation Performed: 10/10/25919
Requesting Provider: Dr. Lan
Performing Provider: Destiney KNIGHT for Dr. Rodriguez
Reason for Consultation: CHF
Medical History
-
Chief Complaint: LE edema
History of Present Illness:
70 y/o female with hypertension who is here for evaluation of LE edema. She was admitted for sepsis in setting of suspected cellulitis and was given IV fluids and IV abx. ARB was held since creatinine was slightly elevated. LE u/s negative for DVT.
We are consulted for suspected CHF. Her proBNP and troponin are elevated. No CP or SOB. However, she reports a cough with laying flat and BLE edema over the past week. Denies any known weight gain. She had a mole removed from her RLE about 3.5 weeks
ago at [facility]- she reports it was noncancerous.
Past Medical History
Past Medical History: HTN
Social History
Tobacco: Non-Smoker
Alcohol: Occasional
Drug: None
Employment: Retired
Family History
Family History: Reviewed & Not Pertinent
Allergies / Home Medications
Allergy/AdvReac Type Severity Reaction Status Date / Time
cefadroxil (From [facility]) Allergy Unknown Verified 10/09/25 17:18
erythromycin base Allergy Hives Verified 10/09/25 17:18
Penicillins Allergy Rash Verified 10/09/25 17:18
�Medication �Instructions �Recorded �Confirmed �Type
losartan 50 mg tablet 50 mg PO DAILY 10/09/25 10/09/25 History
Review of Systems
-
History Source: Patient
All other systems: Negative unless noted
Respiratory: Cough
Musculoskeletal: Edema
Physical Exam
Vital Signs
Temp Pulse Resp BP Pulse Ox
97.3 F 105 16 136/102 96
10/10/25 07:18 10/10/25 07:18 10/10/25 07:18 10/10/25 07:18 10/10/25 07:18
Lab Results
10/10/25 06:47
10/10/25 06:47
Troponin I Cancelled 10/10/25 13:13
Xhb-F-Ubvikezaxsn Pept > 16379 pg/ml 10/09/25 19:22
Physical Exam
General: Well Developed, Well Nourished and No Apparent Distress
HEENT: Normocephalic and Anicteric
Respiratory: Other (diminished to bases)
Cardiac: Regular Rhythm (ST)
Musculoskeletal: Edema (moderate BLE edema)
Skin: Warm and Dry
Neuro: AO x 3
Psych: Calm
Impression / Plan
-
Possible Cellulitis:
-received IV ABX
-management per primary team
Acute HF (type unknown):
-patient has had cough with laying flat, as well as moderate BLE edema. BNP >33433. Checking CXR.
-agree with IV diuresis, which requires intensive monitoring
-mcelroy SGLT2I as well
-check echo
-CHF diet/education
HTN:
-BP elevated
-ARB held- would resume if okay per primary team
-BB added - monitor
-monitor with IV diuresis
Leukocytosis, elevated HGB/HCT:
-oncology consulted
Abnormal troponin:
-suspect acute, non-ischemic myocardial injury in the setting of acute CHF
NSVT:
-3 beat, 4 beat run
-BB started, follow telemetry, check echo
-K+ is fine, checking mag
Data Reviewed
-
EKG: Tracing Personally Visualized and interpreted (Sinus tachycardia, LAD)
Ultrasound: Report Reviewed by me (LE u/s: No evidence of deep venous thrombosis bilaterally.)
Labs: Labs Reviewed by me
--- NOTE | 2025-10-10 09:32 | W.PN.HOSP.TC ---
Today's Communication/Plan
-
see above detail plan
Assessment / Plan
Assessment / Plan
Progressive bilateral lower extremity edema-clinical suspicion is for heart failure; rule out significant proteinuria [prior history of proteinuria]
Patient is progressive bilateral lower extremity edema, clinically chest auscultation raises concern for bilateral pleural effusions, JVD present, mild hepatomegaly and mild cholestasis noted-. Significant elevation in BNP noted mildly elevated
troponins as well noted. Clinically concern for heart failure.
No signs of cellulitis on today's exam. DC further vancomycin
Start on IV Lasix.
Obtain an echocardiogram.
Obtain a chest x-ray
Consult cardiology.
Abnormal troponins
Patient without chest pain.
Peak troponin 0.2. EKG shows sinus tachycardia but no acute ST-T changes
Suspect nonischemic myocardial injury
Recent abnormal chest x-ray ? mass according to the chart
Clinically concern for pleural effusions
Check a chest x-ray two-view
Sinus tachycardia
Seems chronic based on the chart review
Check a TSH
In view of heart failure and tachycardia will start on low-dose beta-veronica
Leukocytosis with polycythemia-leukocytosis seems chronic
Consult hematology for evaluation of myeloproliferative disorders
History of proteinuria. UA shows 4+ albumin
Urine protein to creatinine ratio
Mild hepatomegaly with mildly elevated bilirubin and alkaline phosphatase-check ultrasound of the abdomen
History of hypertension
Hold losartan while on diuresis
DVT prophylaxis subcu heparin
Total time spent on today's encounter was 52 minutes which included time spent in counseling the patient/family regarding diagnosis and treatment plan as listed above, goals of care, and symptom management. Case was discussed with nursing staff,
specialists, and care coordinators/case management. All labs and imaging personally reviewed by me. Remainder the time spent in detailed review of previous records, lab data, imaging, and other medical provider documentation.
Anticipated Discharge: > 48 hours
Subjective/Interval History
-
Date of Service: October 10, 2025
Subacute onset of bilateral lower extremity edema. Denies any pain in the leg. Remote history of cellulitis. No prior history of heart failure.
Denies exertional shortness of breath or orthopnea. No chest pain or palpitations.
Denies any history of lung problems with chart mentions about recent abnormal chest x-ray.
History of protein in the urine and she saw a specialist but apparently resolved.
Objective Data
-
Labs:
Laboratory Results
10/10/25
06:47
WBC 13.6 H
Hgb 16.1 H
Hct 50.3 H
Plt Count 354
Sodium 134 L
Potassium 4.8
Chloride 108 H
Carbon Dioxide 19 L
BUN 24 H
Creatinine 1.0
Glucose 90
Calcium 8.3 L
Total Bilirubin 1.6 H
AST 23
ALT 21
Alkaline Phosphatase 131 H
Vital Signs:
Vital Signs
Temp Pulse Resp BP Pulse Ox
97.3 F 105 16 136/102 96
10/10/25 07:18 10/10/25 07:18 10/10/25 07:18 10/10/25 07:18 10/10/25 07:18
I&O
10/09/25 10/10/25 10/11/25
06:59 06:59 06:59
Intake Total 500 / 500
Balance 500 / 500
Physical Exam
-
General: Comfortable; Negative Respiratory Distress
Respiratory: Non Labored Respirations and Decreased Breath Sounds (Bilateral lower zones with few crackles bibasilar); Negative Accessory Resp Muscle Use
Cardiac: Regular Rhythm, S1/S2, JVD and Tachycardic
GI: Soft, Nondistended and Normal Bowel Sounds; Negative No Hepatosplenomegaly (Palpable liver edge)
Musculoskeletal: Edema, Right Lower Extrem (2+ bilateral) and Edema, Left Lower Extrem
Neuro: AO x 3
Psych: Calm; Negative Confused
Data Reviewed
-
Labs: Labs Reviewed by me
--- NOTE | 2025-10-10 10:11 | CM ---
Addendum entered by Isiah Chappell 10/10/25 10:30:
CM consulted for Jardiance and Farxiga coverage for patient
Patient has [employer] Rx plan. Both medications are covered
Estimated co pays: Jardiance- 30 day $146, 90 day mail order $420. Farxiga- 30 day supply $140, 90 day mail order $420
Updated ordering physician
Original Note:
Patient seen bedside, initial assessment completed. Patient is a 70-year-old female past medical history of bilateral lower extremity cellulitis, hypertension, obesity, presenting for bilateral lower extremity swelling.
[facility], 3 steps to enter from inside porch. Patient is independent w/ ambulation, has a RW inherited by her mother but doesn't use. Independent w/ ADLs and personal care. Has grab bar and shower
seat. Patient's stated her niece lives nearby who comes and check on her. Patient stated she has friends that come over to assist w/ laundry as she doesn't go down the steps to the basement. Denies SNF/HC hx.
Address, points of contact and insurance verified
PCP: Efe Branham
Pharmacy: [facility]
Plan: Anticipate home, will watch for any needs
[2025-10-10 10:24] LABS: Magnesium 2.1 mg/dl (1.6-2.3)
--- NOTE | 2025-10-10 10:51 | CON.ONC ---
Consultation
-
Date Consultation Requested: 10/10/25
Date Consultation Performed: 10/10/25
Requesting Provider: Bao Lan MD
Performing Provider: Kelsey Beaulieu MD
Reason for Consultation: Polycythemia
Impression
Impression
Polycythemia vera, untreated
Bilateral lower extremity swelling with negative Dopplers
Microcytosis
Coagulopathy
Elevated bilirubin
Troponin leak
Proteinuria
Hematuria
Cough
Plan
Plan
Polycythemia vera, untreated
- Discussed polycythemia vera as low-grade neoplastic condition of the bone marrow. Polycythemia can evolve into acute leukemia over the course of decades, but the short and medium term concerns are for blood clots and hyperviscosity symptoms and
complications
- Discussed propensity for visceral clotting in patients with polycythemia vera -> CT C/A/P, eval for visceral clot
- Baby aspirin 81 mg PO BID
- Ideally she would undergo therapeutic phlebotomy x 1 unit prior to d/c
Bilateral lower extremity swelling with negative Dopplers
- question nephrotic syndrome with 4+ albuminuria
- suggest 24-hr urine for total protein, UPEP with immunofixation, free light chains
- may benefit from lymphedema PT as outpt if chronic component to swelling
Microcytosis
- iron studies
- deficiency would be thereutic in the setting of Pvera so would not correct
Coagulopathy
- PTT, thrombin time, mixing study
Elevated bilirubin
- fractionate
Troponin leak
- suggest ECHO
Hematuria
- suggest renal consult for proteinuria and hematuria
Cough
- await chest images from CT
Pt amenable to follow up with [facility] as outpt. She could also return to our [facility] although Dr. Daigle is retiring within the month.
Thank you for consult, will follow along with you.
Patient History
History of Present Illness
Shanita Plata is a 70-year-old woman with history of hypertension who is admitted with right lower extremity erythema and swelling, admitted for cellulitis. She is noted to be polycythemic. Upon review of the medical record, she has a known
diagnosis of JAK2 positive polycythemia vera for which she saw Dr. Endy Koroma in October 2023. Prescription for was written for Hydrea but she canceled follow-up. She tells me her tmd teacher told her to stop taking it and started her on
something else. She was not on a baby aspirin at the time of admission. Currently, she has bilateral lower extremity swelling which she indicates is not chronic for her, although she had similar presentation to [facility] 2 years ago. Her work
appears otherwise notable for urinalysis showing 4+ albumin and albuminuria and 2+ hematuria with 0-2 red blood cells on microscopy. Labs are otherwise notable for total bilirubin of 1.6, coagulopathy with INR of 1.44, microcytosis with MCV of
83.3, elevated serum for troponin. Lower extremity Dopplers were performed and were negative. She underwent an abdominal ultrasound in 2022 showing splenomegaly at 16 cm. Patient states she recently saw landscape technician with negative workup although
it does not sound as though she went underwent a 24-hour urine. She indicates that in general, she comes to [facility] when she really needs an answer about what is going on because she trust the doctors here, even though she lives in
[place]. She feels that she knows something is wrong right now but has not been able to get the attention that she needs as an outpatient. �Patient denies headache, lightheadedness, erythromelalgia, blurry vision or other visual changes, bleeding,
stroke�like symptoms,left upper quadrant pain, early satiety. Denies epigastric distress, history of peptic ulcer disease, or pruritus following warm bath or shower.
Past-Medical/Surgical History
PMHx:
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
Hypertension
Lower extremity cellulitis
PSHx:
CONSTANTINE/BSO for endometriosis
Recent skin graft for non-healing wound RLE
Social:
Patient is single with friends and a niece as support system
Denies tobacco or alcohol
Recently retired as president of a [employer]
Family:
Denies family history of cancer or blood disorders
Patient Medication
�Medication �Instructions �Recorded �Confirmed �Last Taken �Type
losartan 50 mg tablet 50 mg PO DAILY 10/09/25 10/09/25 Unknown History
Active Medications
Generic Name Dose Route Start Last Admin
Trade Name Freq PRN Reason Stop Dose Admin
Furosemide 40 mg 10/10/25 10:00
Furosemide 40 Mg (10 Mg/Ml) 4 Ml Vial IV 11/07/25 09:59
BID AT 0800,1600 JAVAD
Heparin Sodium 5,000 units 10/10/25 08:00 10/10/25 08:02
Heparin 5,000 Units/Ml 1 Ml Vial SC 11/07/25 07:59 5,000 units
Q12 JAVAD Administration
Sodium Chloride 1,000 mls @ 100 mls/hr 10/10/25 01:13 10/10/25 01:46
Nss IV 1,000 mls
.Q10H JAVAD Administration
Metoprolol Tartrate 12.5 mg 10/10/25 10:00
Metoprolol 12.5 Mg Regular Release Dose (1/2 Of 25 Mg Tablet) PO 11/07/25 09:59
BID JAVAD
Sodium Chloride 0 flush 10/10/25 02:00
Sodium Chloride 0.9% (Flush) Syringe IV 11/07/25 01:59
PER PROTOCOL JAVAD
Review of Systems
-
History Source: Patient and Records
All Other Systems: Reviewed and Negative
Constitutional: Reports No Symptoms
EENT: Denies Blurry Vision, Decreased Vision, Tinnitis or Bloody Nose
Respiratory: Reports Cough; Denies Trouble Breathing
Cardiac: Reports Chest Pain; Denies Diaphoresis or Palpitations
GI: Reports No Symptoms
: Reports No Symptoms
Musculoskeletal: Reports No Symptoms
Skin: Reports No Symptoms
Neuro: Reports No Symptoms
Endocrine: Reports No Symptoms
Hematologic/Lymphatic: Reports No Symptoms
Allergy / Immunology: Reports No Symptoms
Psych: Reports No Symptoms
Physical Exam
-
General: Well Developed, Well Nourished and No Apparent Distress
HEENT: Moist Mucous Membranes; Negative Jaundice
Cardiology: Normal Sinus Rhythm, S1 and S2
Pulmonary: Clear; Negative Wheezes
GI: Soft and Spleenomegaly (4 fb below costal margin)
Genito-Urinary: No Costovertebral Tenderness
Musculoskeletal: No Clubbing, No Cyanosis, Edema, Right Lower Extrem and Edema, Left Lower Extrem
Extremities: Edema
Neurology: Non Focal
Skin: Warm, Dry and Other (erythema and bullae RLE staples)
Hematologic / Lymphatic: No Lymphadenopathy and No Petechiae
Psych: Calm; Negative Confused
Labs
Lab Results
WBC 13.6 10^3/uL (4.8-10.8) H 10/10/25 06:47
RBC 6.04 10^6/uL (4.20-5.40) H 10/10/25 06:47
Hgb 16.1 g/dL (12.0-16.0) H 10/10/25 06:47
Hct 50.3 % (37.0-47.0) H 10/10/25 06:47
MCV 83.3 fL (81.0-99.0) 10/10/25 06:47
MCH 26.7 pg (27.0-31.0) L 10/10/25 06:47
MCHC 32.0 g/dL (33.0-37.0) L 10/10/25 06:47
RDW 20.1 % (11.5-14.5) H 10/10/25 06:47
Plt Count 354 10^3/uL (130-400) 10/10/25 06:47
MPV 10.7 fL (7.4-10.4) H 10/10/25 06:47
Abs Immat Gran (auto) 0.1 10^3/uL (0-0.05) H 10/10/25 06:47
Absolute Neuts (auto) 11.7 10^3/uL (1.4-6.5) H 10/10/25 06:47
Absolute Lymphs (auto) 0.9 10^3/uL (1.2-3.4) L 10/10/25 06:47
Absolute Monos (auto) 0.7 10^3/uL (0.1-0.6) H 10/10/25 06:47
Absolute Eos (auto) 0.2 10^3/uL (0-0.7) 10/10/25 06:47
Absolute Basos (auto) 0.1 10^3/uL (0-0.2) 10/10/25 06:47
Immature Gran % 0.6 % (0-0.5) H 10/10/25 06:47
Neutrophils % 85.7 % (42.2-75.2) H 10/10/25 06:47
Lymphocytes % 6.3 % (20.5-51.1) L 10/10/25 06:47
Monocytes % 4.9 % (1.7-9.3) 10/10/25 06:47
Eosinophils % 1.6 % (0-6) 10/10/25 06:47
Basophils % 0.9 % (0-2) 10/10/25 06:47
Creatinine 1.0 mg/dL (0.6-1.0) 10/10/25 06:47
Vital Signs
Vital Signs
Temp Pulse Resp BP Pulse Ox
97.3 F 105 16 136/102 96
10/10/25 07:18 10/10/25 07:18 10/10/25 07:18 10/10/25 07:18 10/10/25 07:18
[2025-10-10 10:54] LABS: TSH 3.68 uIU/ml (0.47-4.68)
[2025-10-10] MEDS: LOPRESSOR 12.5 MG PO ×2 (10:59→21:19)
[2025-10-10] MEDS: LASIX 40 MG IV ×2 (11:00→17:59)
[2025-10-10] MEDS: COZAAR 50 MG PO (11:55)
[2025-10-10] MEDS: LOW STRENGTH ASPIRIN 81 MG PO ×2 (11:57→21:19)
[2025-10-10] MEDS: OMNIPAQUE 50 ML PO (12:35)
[2025-10-10 12:55] LABS: Iron 45 ug/dl (37-170)
[2025-10-10 13:04] LABS: Total Iron Binding Capacity 266 ug/dl (265-497)
[2025-10-10 13:20] LABS: Magnesium 2.0 mg/dl (1.6-2.3)
[2025-10-10 13:30] LABS: Ferritin 123.0 ng/ml (11.1-264.0)
[2025-10-10] MEDS: FLUSH (NSS) 2 FLUSH IV (17:59)
[2025-10-10 20:56] LABS: Hematocrit 51.6 % (37.0-47.0); Hemoglobin 16.7 g/dL (12.0-16.0); Mean Corp Hgb Conc. 32.4 g/dL (33.0-37.0); Mean Corpuscular Volume 81.5 fL (81.0-99.0); Platelet Count 406 10^3/uL (130-400); Red Cell Dist. Width 20.0 % (11.5-14.5)
--- NOTE | 2025-10-10 21:00 | PTCARENOTE ---
Spoke to pharmacist and [employer] to confirm that Heparin gtt can be run w/ NSS d/t patient having one IV site. Heparin gtt started at 12mls/hr.
[2025-10-10 21:08] LABS: APTT 34.3 Sec (23.4-35.0)
[2025-10-10] MEDS: HEPARIN 25000 UNITS/250 ML IV (21:21)
[2025-10-11] MEDS: NSS 1000 IV ×3 (01:02→08:27)
[2025-10-11 03:30] VITALS: BP 136/97
[2025-10-11 03:52] LABS: APTT 50.3 Sec (23.4-35.0)
[2025-10-11] MEDS: HEPARIN 5400 UNITS IV (04:05)
[2025-10-11 05:55] VITALS: BMI 29.0
[2025-10-11 07:21] LABS: Hematocrit 50.9 % (37.0-47.0); Hemoglobin 16.1 g/dL (12.0-16.0); Mean Corp Hgb Conc. 31.6 g/dL (33.0-37.0); Mean Corpuscular Volume 83.9 fL (81.0-99.0); Platelet Count 373 10^3/uL (130-400); Red Cell Dist. Width 19.9 % (11.5-14.5)
[2025-10-11 07:22] VITALS: BP 130/89
[2025-10-11 07:37] LABS: INR 1.63; PT 19.5 Sec (11.4-14.6)
[2025-10-11 08:02] LABS: ALT (SGPT) 19 U/L (0-35); AST (SGOT) 20 U/L (14-36); Albumin 3.1 g/dl (3.5-5.0); Alkaline Phosphatase 131 U/L (38-126); Blood Urea Nitrogen 22 mg/dl (7-17); Calcium 8.5 mg/dl (8.4-10.2); Carbon Dioxide 23 mmol/L (22-30); Chloride 107 mmol/L (98-107); Estimated Creatinine Clearance 41 ml/min; Glucose 86 mg/dl (70-99); Potassium 4.2 mmol/L (3.5-5.1); Sodium 137 mmol/L (135-145); Total Protein 5.3 g/dl (6.3-8.2); eGFR 54.39
[2025-10-11] MEDS: LASIX 40 MG IV ×2 (08:17→14:55)
[2025-10-11] MEDS: LOPRESSOR 12.5 MG PO ×2 (08:17→19:59)
[2025-10-11] MEDS: LOW STRENGTH ASPIRIN 81 MG PO (08:17)
[2025-10-11] MEDS: COZAAR 50 MG PO (08:17)
--- NOTE | 2025-10-11 10:20 | W.PN.HOSP.TC ---
Today's Communication/Plan
-
Continue with IV Lasix
Continue with IV heparin
Consult nephrology
See above for detailed plan
Assessment / Plan
Assessment / Plan
New diagnosis of acute CHF decompensation-unknown EF.
Patient presented with progressive lower extremity edema.
Chest x-ray shows bilateral pleural effusion with pulm edema.
Continue with Lasix. Follow echocardiogram report.
Appreciate cardiology input.
Abnormal troponins
Patient without chest pain.
Peak troponin 0.2. EKG shows sinus tachycardia but no acute ST-T changes
Suspect nonischemic myocardial injury
Acute bilateral PE with no right ventricular strain on the CT chest
No evidence of DVT in lower extremities.
Started on IV heparin.
Sinus tachycardia
Seems chronic based on the chart review
Check a TSH
In view of heart failure and tachycardia started on low-dose [id number] heart rate
Polycythemia vera
Patient on presentation had elevated white count and hematocrit.
On review of old records with hematology she had a prior diagnosis of polycythemia vera and was supposed to be on hydroxyurea.
Appreciate oncology input.
Left ovarian vein possible thrombosis-? Related to polycythemia. On IV heparin now.
Nephrotic syndrome
Patient had a prior history of proteinuria
Urine protein creatinine ratio is 5.4 today
24-hour collection is pending
Consult nephrology
Mild hepatomegaly with mildly elevated bilirubin and alkaline phosphatase-CT of the abdomen shows hepatomegaly and splenomegaly
History of hypertension
Hold losartan while on diuresis
DVT prophylaxis subcu heparin
Total time spent on today's encounter was 52 minutes which included time spent in counseling the patient/family regarding diagnosis and treatment plan as listed above, goals of care, and symptom management. Case was discussed with nursing staff,
specialists, and care coordinators/case management. All labs and imaging personally reviewed by me. Remainder the time spent in detailed review of previous records, lab data, imaging, and other medical provider documentation.
Anticipated Discharge: > 48 hours
Subjective/Interval History
-
Date of Service: October 11, 2025
Still have persistent lower extremity edema. Denies any shortness of breath at rest. No headache chest pains or palpitations.
No nausea vomiting. No fever or chills.
Objective Data
-
Labs:
Laboratory Results
10/11/25 10/11/25 10/11/25
03:35 06:23 09:56
WBC 14.3 H
Hgb 16.1 H
Hct 50.9 H
Plt Count 373
PT 19.5 H
INR 1.63
APTT 50.3 H Pending
Sodium 137
Potassium 4.2
Chloride 107
Carbon Dioxide 23
BUN 22 H
Creatinine 1.1 H
Glucose 86
Calcium 8.5
Total Bilirubin 1.2
AST 20
ALT 19
Alkaline Phosphatase 131 H
Vital Signs:
Vital Signs
Temp Pulse Resp BP Pulse Ox
97.9 F 90 16 130/89 98
10/11/25 07:22 10/11/25 08:17 10/11/25 07:22 10/11/25 08:17 10/11/25 07:22
I&O
10/10/25 10/11/25 10/12/25
06:59 06:59 06:59
Intake Total 500 / 500 1150 / 1150
Output Total 1850 / 1850
Balance 500 / 500 -700 / -700
Physical Exam
-
General: No Apparent Distress
Respiratory: Crackles (Bibasilar with decreased breath sound) and Non Labored Respirations; Negative Wheezes or Accessory Resp Muscle Use
Cardiac: Regular Rhythm, S1/S2 and Tachycardic (Improved)
GI: Soft and Nontender; Negative No Hepatosplenomegaly (Palpable liver edge)
Musculoskeletal: Edema, Right Lower Extrem and Edema, Left Lower Extrem
Skin: Warm
Neuro: AO x 3 and No Motor Deficits; Negative Tremors
Psych: Negative Confused or Agitated
Data Reviewed
-
Diagnostic Radiology: Report Reviewed by me (Chest x-ray)
CT Scan: Report Reviewed by me (CT chest, abdomen, pelvis)
Labs: Labs Reviewed by me
[2025-10-11 10:42] LABS: APTT 195.6 Sec (23.4-35.0)
--- NOTE | 2025-10-11 11:05 | W.CON.NEPH ---
Consultation
-
Date/Time Consultation Requested: 10/11/2025 11 AM
Date/Time Consultation Performed: 10/11/2025 11 AM
Requesting Provider: Dr. Lan
Performing Provider: Dr. Hernandez
Reason for Consultation: Proteinuria
Medical History
-
Chief Complaint: Edema
History of Present Illness:
This is a 70-year-old female who has known polycythemia vera with JAK2 mutation who had previously been prescribed Hydrea though did not take it. She does have hypertension on a mild therapy regimen which she says has been well-controlled. She
says that a few days ago she had developed worsening lower extremity edema somewhat greater on the left than on the right. The progressed to erythema and warm to touch and came to emergency room. She was felt to have a cellulitis and was started
on antibiotics. Chest x-ray was noted to be abnormal which led to a CT scan which disclosed bilateral pulmonary emboli with areas of pulmonary infarction. There is also suspicion of ovarian vein thrombosis on CT scan as well. Further evaluation
of her urine disclosed 5.4 g of proteinuria on urine protein creatinine ratio. We are asked to assist in management of the renal issues.
Past Medical History
Polycythemia vera JAK2 positive
Hypertension
CONSTANTINE/BSO endometriosis
Left meniscus repair
Social History
Tobacco: Non-Smoker
Alcohol: None
Family History
Family History: Not Pertinent
Allergies / Home Medications
Allergy/AdvReac Type Severity Reaction Status Date / Time
cefadroxil (From Durice) Allergy Unknown Verified 10/09/25 17:18
erythromycin base Allergy Hives Verified 10/09/25 17:18
Penicillins Allergy Rash Verified 10/09/25 17:18
�Medication �Instructions �Recorded �Confirmed �Type
losartan 50 mg tablet 50 mg PO DAILY 10/09/25 10/09/25 History
Review of Systems
-
Lower extremity swelling
No chest pain, no shortness of breath
All other systems: Negative unless noted
Physical Exam
Vital Signs
Vital Signs
Temp Pulse Resp BP Pulse Ox
97.9 F 90 16 130/89 98
10/11/25 07:22 10/11/25 08:17 10/11/25 07:22 10/11/25 08:17 10/11/25 07:22
Lab Results
WBC 14.3 10^3/uL (4.8-10.8) H 10/11/25 06:23
RBC 6.07 10^6/uL (4.20-5.40) H 10/11/25 06:23
Hgb 16.1 g/dL (12.0-16.0) H 10/11/25 06:23
Hct 50.9 % (37.0-47.0) H 10/11/25 06:23
Plt Count 373 10^3/uL (130-400) 10/11/25 06:23
Sodium 137 mmol/L (135-145) 10/11/25 06:23
Potassium 4.2 mmol/L (3.5-5.1) 10/11/25 06:23
Chloride 107 mmol/L (98-107) 10/11/25 06:23
Carbon Dioxide 23 mmol/L (22-30) 10/11/25 06:23
BUN 22 mg/dl (7-17) H 10/11/25 06:23
Creatinine 1.1 mg/dL (0.6-1.0) H 10/11/25 06:23
eGFR 54.39 10/11/25 06:23
Glucose 86 mg/dl (70-99) 10/11/25 06:23
Calcium 8.5 mg/dl (8.4-10.2) 10/11/25 06:23
Cok-Q-Lykyazdobkv Pept > 59293 pg/ml 10/09/25 19:22
Albumin 3.1 g/dl (3.5-5.0) L 10/11/25 06:23
Laboratory Tests
10/05/23 12/29/23 10/09/25
22:47 21:01 19:22
Hgb 17.2 H
Creatinine 0.8
Troponin I
Albumin 3.5
Protein/Creatinin Ratio
10/09/25 10/10/25 10/11/25
21:43 06:47 06:23
Hgb
Creatinine
Troponin I 0.236 H*
Albumin 3.1 L
Protein/Creatinin Ratio 5.4
CT chest abdomen pelvis with IV contrast 10/10/2025
IMPRESSION: Examination is positive for pulmonary embolism. Most proximal branch point of the segmental pulmonary arteries. No evidence for significant right heart strain.
2 focal areas of parenchymal opacity, one in the lateral left lower lobe and the second in the posterolateral and inferior right upper lobe. Appearance suspicious for focal areas of infarction.
Small to moderate bilateral pleural effusions with adjacent dependent atelectasis.
Overall heart size is enlarged and the left ventricle appears dilated. No evidence for significant pericardial effusion.
Suboptimal phase for evaluation of the main portal vein. Given this limitation, the main portal vein appears patent as well as its branches. The splenic vein appears patent. Opacification of the SMV is not adequate for evaluation.
No evidence for significant arterial embolism within the abdomen and pelvis.
Hepatomegaly and splenomegaly.
Diffuse fatty infiltration of the liver.
Probable thrombus within the left ovarian vein.
Minimal amount of ascites in the right upper quadrant adjacent to the anterior margin of the liver.
Diffuse subcutaneous edema, greater in the abdomen, pelvis, and proximal thighs when compared to the chest.
Physical Exam
Patient is awake alert oriented and in no distress. Mood and affect were pleasant, insight and judgment were good. Pupils are equal round and reactive to light, extraocular movements are intact, sclera were anicteric. Hearing was normal, ears and
nose are intact. Oropharynx was clear. Neck was supple with trachea midline and no thyromegaly. Heart was regular rate and rhythm without rubs. Lower extremities with 3+ edema. Lungs were coarse to auscultation bilaterally and with normal
excursion. Abdomen was soft, nontender, with normal active bowel sounds, and no hepatosplenomegaly. Skin was without rash and with normal turgor.
Data Reviewed
-
Radiology: Image Personally Visualized and interpreted (Chest x-ray 10/11/2025 by my reading bilateral lung consolidation vascular prominence small pleural effusions)
CT Scan: Report Reviewed by me
Medical Tests (Nuc Med, Echo etc): Image Personally Visualized and interpreted (EKG 10/09/2025 by my reading sinus rhythm left axis deviation inferior septal Q)
Labs: Labs Reviewed by me
Old Records: Reviewed
Assessment/Plan
-
Assessment
Polycythemia vera
Hypertension
Lower extremity edema
Nephrotic range proteinuria
Bilateral pulmonary embolus with pulmonary infarction
Ovarian vein thrombosis
Acute CHF unknown EF
Plan
It is entirely possible that her nephrotic range proteinuria is the source of her current issues including edema and pulmonary emboli and other thrombosis.
Serologic workup has been ordered for the nephrotic proteinuria
I discussed with her biopsy and we will arrange for this in the next 24-48 hours
Diuretics will continue for control of edema
Follow BMP given recent contrast exposure
Check TSH and vitamin D level
[2025-10-11 11:37] VITALS: BP 120/84
--- NOTE | 2025-10-11 13:30 | W.PN.CD ---
Today's Communication / Plan
-
Continue diuresis
Echo pending
Impression / Plan
-
Possible Cellulitis:
-received IV ABX
-management per primary team
Acute HF (type unknown): Her significant volume overload may be due to nephrotic syndrome
-patient has had cough with laying flat, as well as moderate BLE edema. BNP >85051. Checking CXR.
-agree with IV diuresis, which requires intensive monitoring
-mcelroy SGLT2I as well
-check echo
-CHF diet/education
4+ albumin in urine possible nephrotic syndrome
-Nephrology evaluating
Polycythemia vera
-Heme-onc has been evaluating
Bilateral pulmonary emboli
-Secondary possibly to polycythemia vera and nephrotic syndrome
HTN:
-BP elevated
-ARB held- would resume if okay per primary team
-BB added - monitor
-monitor with IV diuresis
Leukocytosis, elevated HGB/HCT:
-oncology consulted
Abnormal troponin:
-suspect acute, non-ischemic myocardial injury in the setting of acute CHF
NSVT:
-3 beat, 4 beat run
-BB started, follow telemetry, check echo
-K+ is fine, checking mag
Physical Exam
Vital Signs/Labs
Vital Signs
Temp Pulse Resp BP Pulse Ox
97.8 F 95 16 120/84 94
10/11/25 11:37 10/11/25 11:37 10/11/25 11:37 10/11/25 11:37 10/11/25 11:37
10/10/25 10/11/25 10/12/25
06:59 06:59 06:59
Actual Weight 148 lb 148 lb 9 oz
10/11/25 06:23
10/11/25 06:23
PT 19.5 Sec (11.4-14.6) H 10/11/25 06:23
INR 1.63 10/11/25 06:23
APTT 195.6 Sec (23.4-35.0) H* 10/11/25 09:56
Magnesium 2.0 mg/dl (1.6-2.3) 10/10/25 12:18
TSH 3.68 uIU/ml (0.47-4.68) 10/10/25 06:47
10/09/25
19:22
Sxn-Q-Itokikurfki Pept > 33000
LAB Results
10/09/25 10/10/25 10/10/25
19:22 01:56 06:47
Troponin I 0.262 H* 0.251 H* 0.236 H*
10/10/25
13:13
Troponin I Cancelled
Physical Exam
Constitutional: No acute distress and Comfortable
EENT: Anicteric
Cardiovascular: Rhythm & rate is regular and Pedal edema present
Respiratory: Respiratory effort normal
GI: Soft
Neuro/Psych: AO x 3
Data Reviewed
-
Date of Service: October 11, 2025
Medical Decision Making: Reviewed Test Results
EKG: Tracing Personally Visualized and interpreted (Sinus)
Echo: Ordered by me
Labs: Labs Reviewed by me
[2025-10-11 14:15] LABS: 24 Hour Urine Total Volume 3500 ml
[2025-10-11] MEDS: HEPARIN 25000 UNITS/250 ML IV (15:01)
[2025-10-11 15:04] VITALS: BP 121/87
[2025-10-11 18:22] LABS: APTT 68.0 Sec (23.4-35.0)
[2025-10-11] MEDS: HEPARIN 2700 UNITS IV (18:29)
[2025-10-11 19:39] VITALS: BP 119/89
[2025-10-11 23:00] VITALS: BP 134/90
[2025-10-12] VITALS (14 sets, daily range): BP systolic 100–141; BP diastolic 81–101; BMI 28.0
[2025-10-12 00:57] LABS: APTT 125.1 Sec (23.4-35.0)
--- NOTE | 2025-10-12 06:40 | W.PN.UPDATE ---
Update Note
Progress Note Update
~ 3 am Pt w/16 beat run of Vtach. Patient sleeping, vital signs stable. Added Magnesium level to am labs. Cardiology following.�
[2025-10-12 07:35] LABS: Hematocrit 52.2 % (37.0-47.0); Hemoglobin 16.5 g/dL (12.0-16.0); Mean Corp Hgb Conc. 31.6 g/dL (33.0-37.0); Mean Corpuscular Volume 82.6 fL (81.0-99.0); Platelet Count 463 10^3/uL (130-400); Red Cell Dist. Width 20.2 % (11.5-14.5)
[2025-10-12 07:44] LABS: APTT 78.5 Sec (23.4-35.0)
[2025-10-12] MEDS: COZAAR 50 MG PO (08:00)
[2025-10-12] MEDS: LASIX 40 MG IV ×2 (08:00→16:10)
[2025-10-12] MEDS: LOPRESSOR 12.5 MG PO (08:00)
[2025-10-12 08:01] LABS: Blood Urea Nitrogen 22 mg/dl (7-17); Calcium 8.8 mg/dl (8.4-10.2); Carbon Dioxide 26 mmol/L (22-30); Chloride 106 mmol/L (98-107); Estimated Creatinine Clearance 45 ml/min; Glucose 89 mg/dl (70-99); Potassium 4.4 mmol/L (3.5-5.1); Sodium 136 mmol/L (135-145); eGFR > 60.00
--- NOTE | 2025-10-12 08:35 | W.PN.HOSP.TC ---
Today's Communication/Plan
-
See plan
Assessment / Plan
Assessment / Plan
Physical Exam
General: No Apparent Distress
Respiratory: Crackles (Bibasilar with decreased breath sound) and Non Labored Respirations; Negative Wheezes or Accessory Resp Muscle Use
Cardiac: Regular Rhythm, S1/S2
GI: Soft and Nontender; Negative No Hepatosplenomegaly (Palpable liver edge)
Musculoskeletal: Edema, Right Lower Extrem and Edema, Left Lower Extrem
Skin: Warm
Neuro: AO x 3 and No Motor Deficits
Psych: Negative Confused or Agitated
Assessment/Plan
New diagnosis of acute CHF decompensation-unknown EF.
Patient presented with progressive lower extremity edema.
Chest x-ray showed bilateral pleural effusion with pulmonary edema.
Per my communication on 10/12/[address] Flores, there is no urgent need for heart catheterization given her acute pulmonary embolism and suspected ovarian vein thrombosis and nephrotic range proteinuria that is being evaluated, but she
will need cardiac cath at some point either inpatient versus outpatient
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
Continue with Lasix. Echocardiogram 10/12/25 with EF of 25% with moderate MR. PASP 52 mmHg
Appreciate cardiology input.
Abnormal troponins
Patient without chest pain.
Peak troponin 0.2. EKG shows sinus tachycardia but no acute ST-T changes
Suspect nonischemic myocardial injury
Acute bilateral PE with no right ventricular strain on the CT chest
No evidence of DVT in lower extremities.
Started on IV heparin.
Sinus tachycardia
Seems chronic based on the chart review
TSH 3.68
In view of heart failure and tachycardia started on low-dose miec-wiktkvi-nnyyjjvv heart rate
Polycythemia vera
Patient on presentation had elevated white count and hematocrit.
On review of old records with hematology she had a prior diagnosis of polycythemia vera and was supposed to be on hydroxyurea.
Appreciate oncology input.
On 10/12/25, Dr. De Paz via [place] [employer] communication mentioned that she spoke with patient's friend Sally: patient has been forgetful and a little paranoid for about the last two years; per the friend, others had noticed her starting to
slip a bit prior to longterm about 6 months ago.
Given the evidence of prior MS�s and untreated polycythemia vera, wonder if she has been having small strokes. At the very least, she has poor insight. Hem/onc suggested that neuro and/or psych see her, based on my conversation this morning with her
friend.
Left ovarian vein possible thrombosis-? Related to polycythemia. On IV heparin now.
Nephrotic syndrome
Patient had a prior history of proteinuria
Urine protein creatinine ratio is 5.4 today
24-hour collection is pending
Consult nephrology
Mild hepatomegaly with mildly elevated bilirubin and alkaline phosphatase-CT of the abdomen shows hepatomegaly and splenomegaly
History of hypertension
Hold losartan while on diuresis
Small serous blister RLE
-Wound care
DVT prophylaxis: Heparin Drip
Total time spent on today's encounter was 55 minutes which included time spent in counseling the patient/family regarding diagnosis and treatment plan as listed above, goals of care, and symptom management. Case was discussed with nursing staff,
specialists, and care coordinators/case management. All test results personally reviewed by me. Remainder the time spent in detailed review of previous records, lab data, imaging, and other medical provider documentation.
Anticipated Discharge: > 48 hours
Subjective/Interval History
-
Date of Service: October 12, 2025
Patient was seen and examined. She denied any new symptoms or complaints.
Objective Data
-
Labs:
Laboratory Results
10/12/25 10/12/25 10/12/25
00:33 06:50 12:26
WBC 12.9 H
Hgb 16.5 H
Hct 52.2 H
Plt Count 463 H D
APTT 125.1 H 78.5 H Pending
Sodium 136
Potassium 4.4
Chloride 106
Carbon Dioxide 26
BUN 22 H
Creatinine 1.0
Glucose 89
Calcium 8.8
Vital Signs:
Vital Signs
Temp Pulse Resp BP Pulse Ox
97.5 F 100 18 138/98 95
10/12/25 07:00 10/12/25 08:00 10/12/25 07:00 10/12/25 08:00 10/12/25 07:00
I&O
10/11/25 10/12/25 10/13/25
06:59 06:59 06:59
Intake Total 1150 / 1150 830 / 830
Output Total 1850 / 1850 2350 / 2350
Balance -700 / -700 -1520 / -1520
[2025-10-12 08:46] LABS: Vitamin D, 25-OH*** < 12.8 ng/mL (30-80)
--- NOTE | 2025-10-12 10:19 | WOUNDNOTE ---
L 2ND TOE TIP
--- NOTE | 2025-10-12 10:43 | WOUNDNOTE ---
[facility] RN note: Patient admitted with CHF, LE edema. Patient's niece lives with patient.
See H&P for complete history.
PMH: LE cellulitis, HTN, obesity, RLE wound (was recently discharged from [facility] wound care center), mass on lung, polycythemia.
Wound Location and type/assessment: Patient admitted with: R medial ankle small serous filled blister, no drainage. +LE edema. +Toe/forefoot scattered mottling. R medial ankle discolored red with small scar from previous wound. Pedal pulses heard
via portable Doppler. Coccyx crease mild red and intact. Heels blanchable mild red and intact. Skin dry on heels.
Appetite: fair.
Pressure redistribution devices in place: [employer] Accumax. Patient turns self in bed. Pillow to elevate heels.
Plan: Protective silicone border foam applied to R medial ankle blister. Protective foam dressing changed on L heel and applied to R heel. Heels off bed with pillow. Will give patient an air chair cushion.
Will confirm orders with Dr. Ivan including requested knee high Tubigrip (remove q hs) and discussed with ARMANDO Estrella.
Care plan to be updated and will follow as needed.
Note to case management of equipment requested for discharge: VN if patient agrees.
Recommend follow up at her wound care center.
--- NOTE | 2025-10-12 11:36 | W.PN.CD ---
Today's Communication / Plan
-
Education re HFrEF
Continue IV diuresis
Med Rx for HFrEF => anticipate HF BB, RAAS-I, SGLT2-i, MRA
Elective cath, timing to be determined in light of acute pulm embolism and work up of nephrotic range proteinuria
Impression / Plan
-
Acute HFrEF
- CXR with pulmonary edema, pBNP >27,000 with normal Cr
- Move to HF BB, move to valsartan and later if BP allows and cost to pt permits move to Entrusto (later), add low dose MRA and later increase
- SGLT2 may be too much for pt: Farxiga- 30 day supply $140, 90 day mail order $420
Suspected ischemic cardiomyopathy
- EKG with evidence of anteriora and inferior infarctions, ech owith multiple wall motion abnormalities
- No urgent need for catheterization, but will anticipate offering her elective cath for clarification of her cardiomyopathy
- Her overall medical and mental conditions may favor medical therapy. Will need to be determined over time
NSVT and short runs of AT as well
- For now med rx of HF and watch
Nephrotic range proteinuria
- Nephrology on board and considering biopsy
Acute Pulmonary Embolism seen on CTA and suspected pulmonary infarcts
- On IV heparin
Suspected Ovarian V thrombosis noted on CTA
Polycythemia vera with mutation
-Heme-onc has been evaluating
Bilateral pulmonary emboli
-Secondary possibly to polycythemia vera and nephrotic syndrome
HTN
Leukocytosis, elevated HGB/HCT:
-oncology consulted
Abnormal troponin:
-suspect acute, non-ischemic myocardial injury in the setting of acute CHF
Neuro status
- Communicated with hematology, Dr. Beaulieu, she has spoken to pt's friend: concern about memory/paranoid, poor insite suspected
Subjective:
Feels a bit better
Echo 10/12/2025
SUMMARY
1. Left ventricle is mildly dilated with severely reduced systolic function. LVEF 25%.
2. Severe global hypokinesis with sparing of the basal to mid anterior, anterolateral, and inferolateral iyer.
3. Stage II diastolic dysfunction suggestive of abnormal relaxation and increased filling pressures.
4. Mildly decreased RV systolic function.
5. Moderate functional mitral regurgitation.
6. Mild to moderate tricuspid regurgitation with moderately elevated PASP (52 mmHg).
7. Pleural effusion is noted.
8. No prior study available for comparison
CXR 10/11/2025:
IMPRESSION:
1. MODERATE ACUTE INTERSTITIAL and ALVEOLAR CARDIOGENIC PULMONARY EDEMA.
2. Small bilateral pleural effusions.
3. Moderate cardiomegaly.
4. ACUTE PULMONARY INFARCTS in the left lower and right upper lobes.
CTA Chest/Abd/pelvis 10/10/2025:
IMPRESSION:
Examination is positive for pulmonary embolism. Most proximal branch point of the segmental pulmonary arteries. No evidence for significant right heart strain.
2 focal areas of parenchymal opacity, one in the lateral left lower lobe and the second in the posterolateral and inferior right upper lobe. Appearance suspicious for focal areas of infarction.
Small to moderate bilateral pleural effusions with adjacent dependent atelectasis.
Overall heart size is enlarged and the left ventricle appears dilated. No evidence for significant pericardial effusion.
Suboptimal phase for evaluation of the main portal vein. Given this limitation, the main portal vein appears patent as well as its branches. The splenic vein appears patent. Opacification of the SMV is not adequate for evaluation.
No evidence for significant arterial embolism within the abdomen and pelvis.
Hepatomegaly and splenomegaly.
Diffuse fatty infiltration of the liver.
Probable thrombus within the left ovarian vein.
Minimal amount of ascites in the right upper quadrant adjacent to the anterior margin of the liver.
Diffuse subcutaneous edema, greater in the abdomen, pelvis, and proximal thighs when compared to the chest.
Physical Exam
Vital Signs/Labs
Vital Signs
Temp Pulse Resp BP Pulse Ox
97.5 F 100 18 138/98 95
10/12/25 07:00 10/12/25 08:00 10/12/25 07:00 10/12/25 08:00 10/12/25 07:00
10/11/25 10/12/25 10/13/25
06:59 06:59 06:59
Actual Weight 67.387 kg 65.119 kg
10/12/25 06:50
10/12/25 06:50
PT 19.5 Sec (11.4-14.6) H 10/11/25 06:23
INR 1.63 10/11/25 06:23
APTT 78.5 Sec (23.4-35.0) H 10/12/25 06:50
Magnesium 2.0 mg/dl (1.6-2.3) 10/10/25 12:18
TSH 3.68 uIU/ml (0.47-4.68) 10/10/25 06:47
10/09/25
19:22
Fqx-K-Fzmrljvfjal Pept > 00452
LAB Results
10/09/25 10/10/25 10/10/25
19:22 01:56 06:47
Troponin I 0.262 H* 0.251 H* 0.236 H*
10/10/25
13:13
Troponin I Cancelled
Physical Exam
Constitutional: No acute distress
EENT: Anicteric
Cardiovascular: Rhythm & rate is regular and Pedal edema present
Respiratory: Respiratory effort normal and Crackles Present
GI: Soft and Distention absent
Neuro/Psych: AO x 3
Data Reviewed
-
Date of Service: October 12, 2025
--- NOTE | 2025-10-12 13:04 | CM ---
CM consulted for Entresto and Farxiga coverage for patient. Call placed to [facility] for pricing; Entresto requires a prior authorization and [facility] is sending the request to the pt's PCP. Farxiga Rx has not yet arrived for [facility] to provide pricing. CM to
call [facility] again at 2PM when the pharmacy reopens.
Updated ordering physician.
--- NOTE | 2025-10-12 16:09 | W.PN.NEPH.PH ---
Today's Communication / Plan
-
follow labs
Assessment/Plan
-
Assessment
Polycythemia vera
Hypertension
Lower extremity edema
Nephrotic range proteinuria
Bilateral pulmonary embolus with pulmonary infarction
Ovarian vein thrombosis
Acute CHF unknown EF
vit D def
Plan
It is entirely possible that her nephrotic range proteinuria is the source of her current issues including edema and pulmonary emboli and other thrombosis.
Serologic workup pending nephrotic proteinuria 5.4gm/gm of cr
however 24hr urine only 1.5gm-not sure how accurate
she is post K biopsy today, await for results
follow h/h
stable renal function and cont diuresis for sig edema
vitamin D def start vit D2
GDMT per cards, echo noted EF 25%, DDII
d/w pt
-
-
Date of Service: October 12, 2025
CC / HPI / ROS
-
Chief Complaint:
Proteinuria,
History of Present Illness:
cr better ar 1, k normal
wt is down
Bp stable
Review of Systems:
no cp or sob
edema still
no dyauria
Labs
-
Labs:
WBC Cancelled 10/12/25 18:30
RBC Cancelled 10/12/25 18:30
Plt Count Cancelled 10/12/25 18:30
Sodium 136 mmol/L (135-145) 10/12/25 06:50
Potassium 4.4 mmol/L (3.5-5.1) 10/12/25 06:50
Chloride 106 mmol/L (98-107) 10/12/25 06:50
Carbon Dioxide 26 mmol/L (22-30) 10/12/25 06:50
BUN 22 mg/dl (7-17) H 10/12/25 06:50
Creatinine 1.0 mg/dL (0.6-1.0) 10/12/25 06:50
eGFR > 60.00 10/12/25 06:50
Glucose 89 mg/dl (70-99) 10/12/25 06:50
Calcium 8.8 mg/dl (8.4-10.2) 10/12/25 06:50
Lme-M-Ibjmodirggq Pept > 63747 pg/ml 10/09/25 19:22
Albumin 3.1 g/dl (3.5-5.0) L 10/11/25 06:23
Physical Exam
-
Vital Signs:
Vital Signs
Temp Pulse Resp BP Pulse Ox
97.8 F 76 18 121/82 97
10/12/25 15:45 10/12/25 15:45 10/12/25 15:45 10/12/25 15:45 10/12/25 15:45
Cardiovascular:: Regular rate and rhythm
Respiratory:: Bilateral: CTA
Lung Excursion:: Normal
Abdomen:: Nontender and Soft
Extremity Edema:: +3: Bilateral:
Nunez Catheter: No
--- NOTE | 2025-10-12 17:49 | VATNOTE ---
attempted therapeutic phlebotomy per order received however unsuccessful after one attempt. Pt is very dry from not eating or drinking today due to an IR procedure. She's also had 2 doses of lasix today. Pt is teary eyed and does not want us to
attempt again. TT ANTONIA Goff and Dr. Neely.
--- NOTE | 2025-10-12 18:36 | VATNOTE ---
Received TT from Dr Osorio; ok to attempt Therap. Phlebotomy on 10/13
--- NOTE | 2025-10-12 19:30 | PTCARENOTE ---
Pt voided post IR in bed maurer within 4 hours, Pt also voided at 1900 in bedpan. PVR bladder scan 595ml. Oncoming RN notified, pt to be straight cathed by oncoming shift superintendent nurse.
[2025-10-12] MEDS: DRISDOL (VITAMIN D2) 50000 UNITS PO (19:44)
[2025-10-12] MEDS: DIOVAN 40 MG PO (19:44)
[2025-10-12] MEDS: TOPROL XL 25 MG PO (19:44)
[2025-10-12 19:55] LABS: Hematocrit 52.3 % (37.0-47.0); Hemoglobin 16.8 g/dL (12.0-16.0)
[2025-10-12] MEDS: HEPARIN 25000 UNITS/250 ML IV (20:13)
--- NOTE | 2025-10-12 20:45 | PTCARENOTE ---
Dayshift RN bladder scanned patient at 595 cc. Patient refused straight cath. Will attempt to urinate again.
--- NOTE | 2025-10-12 21:52 | W.PN.ONC2 ---
Addendum entered and electronically signed by Kelsey De Paz MD 10/12/25 22:43:
Of note, myeloproliferative disorders are a rare cause of focal segmental glomerulosclerosis presenting with swelling in feet and proteinuria.
If this is diagnosis, Managing the myeloproliferative disorder is crucial to managing the FSGS.
Awaiting outcome of renal biopsy.
Original Note:
Today's Communication / Plan
-
Continue anticoagulation. Therapeutic phlebotomy x 1. Start Hydrea 500 mg PO BID.
Consider brain imaging and neuro consult as friend has noted decrease in memory, poor judgment and subtle personality change including mistrust of some of her outpt physicians.
Suspect she may have had some small strokes and question early multi-infarct dementia.
Pt comfortable with Hematology team here at and agrees to follow up with us.
Stressed importance of compliance with pvera care regimen including therapeutic phleb, hydrea, anticoagulation.
Await UPEP on 24-hr urine. PABLITO HARTMANN also sent.
Await renal biopsy path.
Impression
Impression
Polycythemia vera complicated by hepatosplenomegaly and now PE, pelvic vein thrombosis
Bilateral lower extremity swelling with negative Dopplers
Ischemic cardiomyopathy
Proteinuria
Coagulopathy
Plan
Plan
Polycythemia vera, untreated
- Discussed polycythemia vera as low-grade neoplastic condition of the bone marrow. Polycythemia can evolve into acute leukemia over the course of decades, but the short and medium term concerns are for blood clots and hyperviscosity symptoms and
complications
- Discussed propensity for visceral clotting in patients with polycythemia vera, clotting complications now confirmed
- Now on anticoagulation which should continue long-term
- Therapeutic phleb x 1 unit
- Start Hydrea 500 mg PO BID.
Pulmonary embolism, possible ovarian vein thrombosis
Bilateral lower extremity swelling with negative Dopplers
- Lymphedema PT to wrap legs in jazmyn bandages
- Unclear whether edema is due to nephrotic syndrome, CHF or both
Proteinuria, microscopic hematuria
- Await renal biopsy
Coagulopathy
Subjective/Objective
Chief Complaint
Hematology follow up of Pvera, PE, possible ovarian vein thrombosis
Subjective
Recent events noted: CT C/A/P showed PE and possible pelvic vein thrombosis, ECHO with EF 25% and global hypokinesis, EKG with evidence of previous infarcts, 24-hr urine with 1.5g protein. Renal biopsy performed today.
Pt accompanied today by a friend who expressed concern about pt forgetfulness and lack of insight regarding her medical issues, representing a chemical cell changer the last two years from patient's usual baseline.
Pt without new complaint today but may not be a reliable historian, states the leg swelling just happened.
Vital Signs:
Vital Signs
Temp Pulse Resp BP Pulse Ox
98.8 F 104 18 123/83 92
10/12/25 19:00 10/12/25 19:44 10/12/25 19:00 10/12/25 19:44 10/12/25 19:00
Lab Results:
Laboratory Data
WBC Cancelled 10/12/25 18:30
Hgb 16.8 g/dL (12.0-16.0) H 10/12/25 19:45
Plt Count Cancelled 10/12/25 18:30
PT 19.5 Sec (11.4-14.6) H 10/11/25 06:23
INR 1.63 10/11/25 06:23
APTT Cancelled 10/12/25 12:26
eGFR > 60.00 10/12/25 06:50
Physical Exam
Awake, alert, non-toxic
Spleen readily palpable 3-4 fb below costal margin
Continued lower extremity swelling
Orders
Orders
Orders From Last 24 Hours
10/12/25 11:01
Compression Therapy As Directed
10/13/25 08:00
Hydroxyurea [Hydrea] 500 mg PO BID
[2025-10-13 02:50] LABS: APTT 23.2 Sec (23.4-35.0)
[2025-10-13 03:10] VITALS: BP 114/79
[2025-10-13] MEDS: HEPARIN 5400 UNITS IV ×2 (03:10→23:19)
[2025-10-13 06:00] VITALS: BMI 27.0
[2025-10-13 07:00] VITALS: BP 138/95
[2025-10-13] MEDS: ALDACTONE 12.5 MG PO (07:21)
[2025-10-13] MEDS: LASIX 40 MG IV (07:23)
[2025-10-13] MEDS: TOPROL XL 25 MG PO ×2 (07:23→19:37)
[2025-10-13] MEDS: DIOVAN 40 MG PO ×2 (07:24→19:38)
[2025-10-13] MEDS: HYDREA 500 MG PO ×2 (07:24→19:38)
--- NOTE | 2025-10-13 07:46 | W.PN.HOSP.TC ---
Today's Communication/Plan
-
L/R heart cath for tomorrow
Strokes on MRI Brain -- not acute -- given LDL, added statin.
Check carotid ultrasound
See plan
Assessment / Plan
Assessment / Plan
Physical Exam
General: No Apparent Distress
Respiratory: Crackles (Bibasilar with decreased breath sound) and Non Labored Respirations; Negative Wheezes or Accessory Resp Muscle Use
Cardiac: Regular Rhythm, S1/S2
GI: Soft and Nontender; Negative No Hepatosplenomegaly (Palpable liver edge)
Musculoskeletal: Edema, Right Lower Extrem and Edema, Left Lower Extrem
Skin: Warm
Neuro: AO x 3 and No Motor Deficits
Psych: Negative Confused or Agitated
Assessment/Plan
New diagnosis of acute CHF decompensation-unknown EF.
Patient presented with progressive lower extremity edema.
Chest x-ray showed bilateral pleural effusion with pulmonary edema.
Cardiac cath being planned tomorrow
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
Continue with Lasix. Echocardiogram 10/12/25 with EF of 25% with moderate MR. PASP 52 mmHg
Appreciate cardiology input.
Abnormal troponins
Patient without chest pain.
Peak troponin 0.2. EKG shows sinus tachycardia but no acute ST-T changes
Suspect nonischemic myocardial injury
Acute bilateral PE with no right ventricular strain on the CT chest
No evidence of DVT in lower extremities.
Continue IV heparin.
Sinus tachycardia
Seems chronic based on the chart review
TSH 3.68
In view of heart failure and tachycardia, patient was started on low-dose zhgk-dfjampk-gsqkikcn heart rate
Polycythemia vera
Patient on presentation had elevated white count and hematocrit.
On review of old records with hematology she had a prior diagnosis of polycythemia vera and was supposed to be on hydroxyurea.
Appreciate oncology input.
-On 10/12/25, Dr. De Paz via [place] Text communication mentioned that she spoke with patient's friend Sally: patient has been forgetful and a little paranoid for about the last two years; per the friend, others had noticed her starting to
slip a bit prior to fpc about 6 months ago.
Given the evidence of prior KS�s and untreated polycythemia vera, wonder if she has been having small strokes. At the very least, she has poor insight. Hem/onc suggested that neuro and/or psych see her, based on her conversation on 10/13/25 morning
with patient's friend.
-MRI Brain, as per radiologist's report, showed mild chronic infarct involving the posterior left temporal and parietal lobes. 2 tiny chronic lacunar infarcts in the left thalamus.
-Strokes sounds embolic. Patient already will be on anticoagulation.
-Lipid Panel showed LDL cholesterol 86
-High intensity Lipitor 40 mg daily has been added
-Dr. Portillo aware of this case, will consider inpatient neurology consultation
-Check carotid ultrasound
-Single agent with Eliquis is fine; if patient gets a stent (after cardiac cath), then it will be Plavix plus Eliquis for 3 to 6 months, followed by Eliquis.
Left ovarian vein possible thrombosis-? Related to polycythemia. On IV heparin now.
Nephrotic syndrome
Patient had a prior history of proteinuria
Urine protein creatinine ratio is 5.4 today
24-hour collection is pending
Consult nephrology
Mild hepatomegaly with mildly elevated bilirubin and alkaline phosphatase-CT of the abdomen shows hepatomegaly and splenomegaly
History of hypertension
Hold losartan while on diuresis
Small serous blister RLE
-Wound care
DVT prophylaxis: Heparin Drip
Patient is not a reliable historian, best to speak with patient's friend (authorized contact) for further information.
Total time spent on today's encounter was 52 minutes which included time spent in counseling the patient/family regarding diagnosis and treatment plan as listed above, goals of care, and symptom management. Case was discussed with nursing staff,
specialists. All test results personally reviewed by me. Remainder the time spent in detailed review of previous records, lab data, imaging, and other medical provider documentation.
Anticipated Discharge: > 48 hours
Subjective/Interval History
-
Date of Service: October 13, 2025
Patient was seen and examined. She denied any new symptoms or complaints.
Objective Data
-
Labs:
Laboratory Results
10/12/25 10/13/25 10/13/25
19:45 02:29 06:00
Hgb 16.8 H
Hct 52.3 H
APTT 23.2 L
Sodium Pending
Potassium Pending
Chloride Pending
Carbon Dioxide Pending
BUN Pending
Creatinine Pending
Glucose Pending
Calcium Pending
10/13/25
09:08
Hgb
Hct
APTT Pending
Sodium
Potassium
Chloride
Carbon Dioxide
BUN
Creatinine
Glucose
Calcium
Vital Signs:
Vital Signs
Temp Pulse Resp BP Pulse Ox
98.5 F 102 18 138/95 93
10/13/25 03:10 10/13/25 07:21 10/13/25 03:10 10/13/25 07:21 10/13/25 03:10
I&O
10/12/25 10/13/25 10/14/25
06:59 06:59 06:59
Intake Total 830 / 830 795 / 795
Output Total 2350 / 2350 900 / 900
Balance -1520 / -1520 -105 / -105
[2025-10-13 09:47] LABS: Hematocrit 51.5 % (37.0-47.0); Hemoglobin 17.0 g/dL (12.0-16.0); Mean Corp Hgb Conc. 33.0 g/dL (33.0-37.0); Mean Corpuscular Volume 81.1 fL (81.0-99.0); Platelet Count 405 10^3/uL (130-400); Red Cell Dist. Width 20.0 % (11.5-14.5)
[2025-10-13 09:54] LABS: APTT 128.6 Sec (23.4-35.0)
--- NOTE | 2025-10-13 10:13 | W.PN.CD ---
Today's Communication / Plan
-
IV diuresis another 12-24 hours or so
Add SGLT2-I
Progress to L/R heart cath for tomorrow if agreeable to hospitalist/consultants
Impression / Plan
-
Acute HFrEF
- Admit weight 79.9/77.6 kg. Now 62.8 kg as of 10/13/2025
- Labs pending this AM
- Feeling better, edema improved
- CXR with pulmonary edema, pBNP >27,000 with normal Cr
- GDMT: HF BB (low dose), ARB (low dose valsartan, later ARNI), MRA (low dose Aldactone), will add SGLT2-I (pt ok with cost), later increase to goal doses
- IV diuresis for another day or two
Suspected ischemic cardiomyopathy
- EKG with evidence of anteriora and inferior infarctions, echo with multiple wall motion abnormalities
- No urgent need for catheterization, I offered elective cath for clarification of her cardiomyopathy for tomorrow
NSVT and short runs of AT as well
- Quiet since 1233 hours 10/12/2025 as of this AM tele review by me (Mark)
Abnormal troponin:
-suspect acute, non-ischemic myocardial injury in the setting of acute CHF
Nephrotic range proteinuria
- S/p Kidney biopsy
Acute Pulmonary Embolism with pulmonary infarction
Suspected Ovarian V thrombosis noted on CTA
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
- Hematology involved => phlebotomy/Hydrea
HTN
Neuro/Psyh
- Dr. De Paz elicited hx from pt friend of 'decrease in memory, poor judgment and subtle personality change including mistrust of some of her outpt physicians'.
- For MRI/neuro input
Subjective:
Feels a better
Echo 10/12/2025
SUMMARY
1. Left ventricle is mildly dilated with severely reduced systolic function. LVEF 25%.
2. Severe global hypokinesis with sparing of the basal to mid anterior, anterolateral, and inferolateral iyer.
3. Stage II diastolic dysfunction suggestive of abnormal relaxation and increased filling pressures.
4. Mildly decreased RV systolic function.
5. Moderate functional mitral regurgitation.
6. Mild to moderate tricuspid regurgitation with moderately elevated PASP (52 mmHg).
7. Pleural effusion is noted.
8. No prior study available for comparison
CXR 10/11/2025:
IMPRESSION:
1. MODERATE ACUTE INTERSTITIAL and ALVEOLAR CARDIOGENIC PULMONARY EDEMA.
2. Small bilateral pleural effusions.
3. Moderate cardiomegaly.
4. ACUTE PULMONARY INFARCTS in the left lower and right upper lobes.
CTA Chest/Abd/pelvis 10/10/2025:
IMPRESSION:
Examination is positive for pulmonary embolism. Most proximal branch point of the segmental pulmonary arteries. No evidence for significant right heart strain.
2 focal areas of parenchymal opacity, one in the lateral left lower lobe and the second in the posterolateral and inferior right upper lobe. Appearance suspicious for focal areas of infarction.
Small to moderate bilateral pleural effusions with adjacent dependent atelectasis.
Overall heart size is enlarged and the left ventricle appears dilated. No evidence for significant pericardial effusion.
Suboptimal phase for evaluation of the main portal vein. Given this limitation, the main portal vein appears patent as well as its branches. The splenic vein appears patent. Opacification of the SMV is not adequate for evaluation.
No evidence for significant arterial embolism within the abdomen and pelvis.
Hepatomegaly and splenomegaly.
Diffuse fatty infiltration of the liver.
Probable thrombus within the left ovarian vein.
Minimal amount of ascites in the right upper quadrant adjacent to the anterior margin of the liver.
Diffuse subcutaneous edema, greater in the abdomen, pelvis, and proximal thighs when compared to the chest.
Physical Exam
Vital Signs/Labs
Vital Signs
Temp Pulse Resp BP Pulse Ox
97.5 F 102 18 138/95 95
10/13/25 07:00 10/13/25 07:21 10/13/25 07:00 10/13/25 07:21 10/13/25 07:00
10/12/25 10/13/25 10/14/25
06:59 06:59 06:59
Actual Weight 65.119 kg 62.681 kg
10/13/25 09:32
PT 19.5 Sec (11.4-14.6) H 10/11/25 06:23
INR 1.63 10/11/25 06:23
APTT 128.6 Sec (23.4-35.0) H 10/13/25 09:32
Magnesium 2.0 mg/dl (1.6-2.3) 10/10/25 12:18
TSH 3.68 uIU/ml (0.47-4.68) 10/10/25 06:47
10/09/25
19:22
Eiw-C-Rgruhxoinub Pept > 90246
Physical Exam
Constitutional: No acute distress
EENT: Anicteric
Cardiovascular: Rhythm & rate is regular and Pedal edema present (mild, much improved)
Respiratory: Respiratory effort normal and Lungs clear to auscul.
GI: Soft
Neuro/Psych: AO x 3
Data Reviewed
-
Date of Service: October 13, 2025
[2025-10-13 10:31] LABS: Blood Urea Nitrogen 20 mg/dl (7-17); Calcium 9.0 mg/dl (8.4-10.2); Carbon Dioxide 27 mmol/L (22-30); Chloride 103 mmol/L (98-107); Estimated Creatinine Clearance 44 ml/min; Glucose 135 mg/dl (70-99); Potassium 4.2 mmol/L (3.5-5.1); Sodium 136 mmol/L (135-145); eGFR > 60.00
[2025-10-13 10:43] LABS: HDL Cholesterol 41 mg/dl; LDL Cholesterol, Calculated 86 mg/dl; Magnesium 1.7 mg/dl (1.6-2.3); Very Low Density Lipoprotein 19 mg/dl (0-30)
[2025-10-13 11:41] VITALS: BP 135/91
[2025-10-13 15:23] VITALS: BP 107/65
--- NOTE | 2025-10-13 16:21 | W.PN.NEPH.PH ---
Today's Communication / Plan
-
await K biopsy
cont diuresis
ok for [facility] tomorrow
Assessment/Plan
-
Assessment
Polycythemia vera
Hypertension
Lower extremity edema
Nephrotic range proteinuria
Bilateral pulmonary embolus with pulmonary infarction
Ovarian vein thrombosis
Acute CHF unknown EF
vit D def
Plan
Serologic workup pending nephrotic proteinuria 5.4gm/gm of cr
however 24hr urine only 1.5gm
she is post K biopsy 10/12, await for results
s/p phlebotomy today
cont on heparin gtt, plan L/RHC tomorrow per cards
stable renal function and cont diuresis
vitamin D def start vit D2
GDMT per cards, echo noted EF 25%, DDII
d/w pt
-
-
Date of Service: October 13, 2025
CC / HPI / ROS
-
Chief Complaint:
Proteinuria,
History of Present Illness:
cr stable at 1, k normal
wt is down
Bp stable
Review of Systems:
no cp or sob
edema improving
Labs
-
Labs:
WBC 11.8 10^3/uL (4.8-10.8) H 10/13/25 09:32
RBC 6.35 10^6/uL (4.20-5.40) H 10/13/25 09:32
Hgb 17.0 g/dL (12.0-16.0) H 10/13/25 09:32
Hct 51.5 % (37.0-47.0) H 10/13/25 09:32
Plt Count 405 10^3/uL (130-400) H 10/13/25 09:32
Sodium 136 mmol/L (135-145) 10/13/25 09:32
Sodium Cancelled 10/13/25 09:32
Potassium 4.2 mmol/L (3.5-5.1) 10/13/25 09:32
Potassium Cancelled 10/13/25 09:32
Chloride 103 mmol/L (98-107) 10/13/25 09:32
Chloride Cancelled 10/13/25 09:32
Carbon Dioxide 27 mmol/L (22-30) 10/13/25 09:32
Carbon Dioxide Cancelled 10/13/25 09:32
BUN 20 mg/dl (7-17) H 10/13/25 09:32
BUN Cancelled 10/13/25 09:32
Creatinine 1.0 mg/dL (0.6-1.0) 10/13/25 09:32
Creatinine Cancelled 10/13/25 09:32
eGFR > 60.00 10/13/25 09:32
eGFR Cancelled 10/13/25 09:32
Glucose 135 mg/dl (70-99) H 10/13/25 09:32
Glucose Cancelled 10/13/25 09:32
Calcium 9.0 mg/dl (8.4-10.2) 10/13/25 09:32
Calcium Cancelled 10/13/25 09:32
Lqi-I-Hgajzajmyth Pept > 84710 pg/ml 10/09/25 19:22
Albumin 3.1 g/dl (3.5-5.0) L 10/11/25 06:23
Physical Exam
-
Vital Signs:
Vital Signs
Temp Pulse Resp BP Pulse Ox
97.5 F 89 18 107/65 92
10/13/25 15:23 10/13/25 15:23 10/13/25 15:23 10/13/25 15:23 10/13/25 15:23
Cardiovascular:: Regular rate and rhythm
Respiratory:: Bilateral: CTA
Lung Excursion:: Normal
Abdomen:: Nontender and Soft
Extremity Edema:: +2: Bilateral:
Nunez Catheter: No
[2025-10-13 16:42] LABS: APTT 77.0 Sec (23.4-35.0)
[2025-10-13] MEDS: LIPITOR 40 MG PO (18:20)
[2025-10-13 19:12] VITALS: BP 114/74
[2025-10-13 21:51] LABS: Albumin 3.09 g/dL (3.75-5.01); Free Kappa Light Chains,Quant 22.57 mg/L (3.30-19.40); Free Lambda Light Chains,Quant 14.44 mg/L (5.71-26.30); Immunofixation Electrophoresis IFE Done; Kappa/Lambda Fr Light Ratio 1.56 (0.26-1.65); Total Protein-Electrophoresis 5.6 g/dL (6.3-8.2)
[2025-10-13 22:05] LABS: ANA, IgG Reflex to HEp-2 None Detected (None Detected)
[2025-10-13 23:00] VITALS: BP 112/75
[2025-10-13 23:02] LABS: Glomerular Base Membrane Ab 0 AU/mL (0-19); Serine Protease-3, IgG 0 AU/mL (0-19)
[2025-10-13 23:11] LABS: APTT 55.2 Sec (23.4-35.0)
[2025-10-14] VITALS (21 sets, daily range): BP systolic 101–139; BP diastolic 68–93; BMI 26.5
[2025-10-14 01:33] LABS: Phospholipase A2 Receptor, IgG <1:10 (<1:10)
[2025-10-14] MEDS: HEPARIN 25000 UNITS/250 ML IV ×2 (03:59→22:04)
[2025-10-14 06:49] LABS: Hematocrit 50.3 % (37.0-47.0); Hemoglobin 16.3 g/dL (12.0-16.0); Mean Corp Hgb Conc. 32.4 g/dL (33.0-37.0); Mean Corpuscular Volume 83.1 fL (81.0-99.0); Platelet Count 451 10^3/uL (130-400); Red Cell Dist. Width 19.7 % (11.5-14.5)
[2025-10-14 07:05] LABS: APTT > 200.0 Sec (23.4-35.0)
[2025-10-14 08:14] LABS: Blood Urea Nitrogen 20 mg/dl (7-17); Calcium 8.7 mg/dl (8.4-10.2); Carbon Dioxide 27 mmol/L (22-30); Chloride 102 mmol/L (98-107); Estimated Creatinine Clearance 48 ml/min; Glucose 94 mg/dl (70-99); Potassium 3.7 mmol/L (3.5-5.1); Sodium 135 mmol/L (135-145); eGFR > 60.00
--- NOTE | 2025-10-14 08:20 | W.PN.HOSP.TC ---
Today's Communication/Plan
-
Doing well, no bleeding
Cardiac cath today
Assessment / Plan
Assessment / Plan
Physical Exam
General: No Apparent Distress
Respiratory: Crackles (Bibasilar with decreased breath sound) and Non Labored Respirations; Negative Wheezes or Accessory Resp Muscle Use
Cardiac: Regular Rhythm, S1/S2
GI: Soft and Nontender; Negative No Hepatosplenomegaly (Palpable liver edge)
Musculoskeletal: Edema, Right Lower Extrem and Edema, Left Lower Extrem
Skin: Warm
Neuro: AO x 3 and No Motor Deficits
Psych: Negative Confused or Agitated
Assessment/Plan
New diagnosis of acute CHF decompensation-unknown EF.
Patient presented with progressive lower extremity edema.
Chest x-ray showed bilateral pleural effusion with pulmonary edema.
Cardiac cath being planned today
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
Continue with Lasix but switch to PO tomorrow. Echocardiogram 10/12/25 with EF of 25% with moderate MR. PASP 52 mmHg
Appreciate cardiology input.
Abnormal troponins
Patient without chest pain.
Peak troponin 0.2. EKG shows sinus tachycardia but no acute ST-T changes
Suspect nonischemic myocardial injury
Acute bilateral PE with no right ventricular strain on the CT chest
No evidence of DVT in lower extremities.
Continue IV heparin.
Sinus tachycardia
Seems chronic based on the chart review
TSH 3.68
In view of heart failure and tachycardia, patient was started on low-dose vpge-aohxhtp-qrqlycgy heart rate
#Polycythemia vera
Patient on presentation had elevated white count and hematocrit.
On review of old records with hematology she had a prior diagnosis of polycythemia vera and was supposed to be on hydroxyurea.
Appreciate oncology input.
- s/p Therapeutic phleb x 1 unit
- Start Hydrea 500 mg PO BID.
-On 10/12/25, Dr. De Paz via [place] Text communication mentioned that she spoke with patient's friend Sally: patient has been forgetful and a little paranoid for about the last two years; per the friend, others had noticed her starting to
slip a bit prior to care home about 6 months ago.
Given the evidence of prior AZ�s and untreated polycythemia vera, wonder if she has been having small strokes. At the very least, she has poor insight. Hem/onc suggested that neuro and/or psych see her, based on her conversation on 10/13/25 morning
with patient's friend.
-MRI Brain, as per radiologist's report, showed mild chronic infarct involving the posterior left temporal and parietal lobes. 2 tiny chronic lacunar infarcts in the left thalamus.
-Strokes sounds embolic. Patient already will be on anticoagulation.
-Lipid Panel showed LDL cholesterol 86
-High intensity Lipitor 40 mg daily has been added
-Dr. Portillo aware of this case, will consider inpatient neurology consultation
-Carotid ultrasound with less than 50% stenosis bilaterally
-Single agent with Eliquis is fine; if patient gets a stent (after cardiac cath), then it will be Plavix plus Eliquis for 3 to 6 months, followed by Eliquis.
Possible left ovarian vein possible thrombosis-? Related to polycythemia.
-On IV heparin now.
Nephrotic syndrome
Patient had a prior history of proteinuria
Await renal biopsy results
Consult nephrology
Bilateral lower extremity swelling with negative Dopplers
- Wrap legs in jazmyn bandages
- Unclear whether edema is due to nephrotic syndrome, CHF or both
Mild hepatomegaly with mildly elevated bilirubin and alkaline phosphatase-CT of the abdomen shows hepatomegaly and splenomegaly
History of hypertension
Hold losartan while on diuresis
Small serous blister RLE
-Wound care
DVT prophylaxis: Heparin Drip
Patient is not a reliable historian, best to speak with patient's friend (authorized contact) for further information.
Anticipated Discharge: 24 - 48 hours
Subjective/Interval History
-
Date of Service: October 14, 2025
Patient was seen and examined. She denied any new bleeding, any other new symptoms or complaints.
Objective Data
-
Labs:
Laboratory Results
10/13/25 10/14/25
22:52 06:28
WBC 13.8 H
Hgb 16.3 H
Hct 50.3 H
Plt Count 451 H
APTT 55.2 H > 200.0 H*
Sodium 135
Potassium 3.7
Chloride 102
Carbon Dioxide 27
BUN 20 H
Creatinine 0.9
Glucose 94
Calcium 8.7
Vital Signs:
Vital Signs
Temp Pulse Resp BP Pulse Ox
97.9 F 91 18 122/81 97
10/14/25 07:00 10/14/25 07:00 10/14/25 07:00 10/14/25 07:00 10/14/25 07:00
I&O
10/13/25 10/14/25 10/15/25
06:59 06:59 06:59
Intake Total 795 / 795 1140 / 1140
Output Total 900 / 900
Balance -105 / -105 1140 / 1140
[2025-10-14] MEDS: ALDACTONE 12.5 MG PO (08:49)
[2025-10-14] MEDS: HYDREA 500 MG PO ×2 (08:49→21:04)
[2025-10-14] MEDS: DIOVAN 40 MG PO ×2 (08:49→21:03)
[2025-10-14] MEDS: FARXIGA 10 MG PO (08:50)
[2025-10-14] MEDS: TOPROL XL 25 MG PO ×2 (08:50→21:04)
--- NOTE | 2025-10-14 09:00 | WOUNDNOTE ---
Kenney Wallace re: recommend VN if patient goes home and accepts. She has a small RLE blister.
--- NOTE | 2025-10-14 10:27 | W.PN.ONC2 ---
Today's Communication / Plan
-
Await renal biopsy. Continue hydroxyurea (on 500 PO BID). Continue anticoagulation which can be transitioned from IV heparin to a DoAC as we approach discharge.
Brain MRI negative for acute infarct. Renal biopsy pathology is pending.
Impression
Impression
Polycythemia vera complicated by hepatosplenomegaly and now PE, pelvic vein thrombosis
Bilateral lower extremity swelling with negative Dopplers
Ischemic cardiomyopathy
Proteinuria
Coagulopathy
Plan
Plan
Polycythemia vera, untreated
- Discussed polycythemia vera as low-grade neoplastic condition of the bone marrow. Polycythemia can evolve into acute leukemia over the course of decades, but the short and medium term concerns are for blood clots and hyperviscosity symptoms and
complications
- Discussed propensity for visceral clotting in patients with polycythemia vera, clotting complications now confirmed
- Now on anticoagulation which should continue long-term
- s/p Therapeutic phleb x 1 unit
- Start Hydrea 500 mg PO BID.
Pulmonary embolism, possible ovarian vein thrombosis
Bilateral lower extremity swelling with negative Dopplers
- Lymphedema PT to wrap legs in jazmyn bandages
- Unclear whether edema is due to nephrotic syndrome, CHF or both
Proteinuria, microscopic hematuria
- Await renal biopsy
Subjective/Objective
Chief Complaint
ACS hematology follow up
Subjective
Clinically improved. Leg swelling and cellulitis/redness improved. Mental status appears to be improved. Currently on hydroxyurea. She underwent 1 phlebotomy
Vital Signs:
Vital Signs
Temp Pulse Resp BP Pulse Ox
97.9 F 91 18 122/81 97
10/14/25 07:00 10/14/25 08:49 10/14/25 07:00 10/14/25 08:49 10/14/25 07:00
Lab Results:
Laboratory Data
WBC 13.8 10^3/uL (4.8-10.8) H 10/14/25 06:28
Hgb 16.3 g/dL (12.0-16.0) H 10/14/25 06:28
Plt Count 451 10^3/uL (130-400) H 10/14/25 06:28
PT 19.5 Sec (11.4-14.6) H 10/11/25 06:23
INR 1.63 10/11/25 06:23
APTT > 200.0 Sec (23.4-35.0) H* 10/14/25 06:28
eGFR > 60.00 10/14/25 06:28
Physical Exam
Cardiology: S1 and S2
Pulmonary: Clear
GI: Soft
Extremities: Edema
[2025-10-14 11:19] LABS: 24 Hour Urine Total Volume 3500 mL; Ur Free Lambda Excretion/day 24.01 mg/d; Urine Collection Length 24 hr
--- NOTE | 2025-10-14 12:07 | W.PN.CD ---
Today's Communication / Plan
-
Cath today
No Lasix today
Start oral Lasix one time a day tomorrow
Impression / Plan
-
Outpatient Senior Mobile Developer: Will be Emmanuel Rodriguez MD
Acute HFrEF
- Admit weight 79.9/77.6 kg. Now 61.5 kg as of 10/14/2025
- Feeling better, edema essentially resolved
- Admit CXR with pulmonary edema, pBNP >27,000 with normal Cr
- GDMT: HF BB (low dose), ARB (low dose valsartan, later ARNI), MRA (low dose Aldactone), will add SGLT2-I (pt ok with cost), later increase to goal doses
- Start oral Lasix tomorrow, 10/15/2025
Suspected ischemic cardiomyopathy (etiology of cardiomyopathy is not yet proven)
- EKG with evidence of anterior and inferior infarctions, echo with multiple wall motion abnormalities
- elective cath for clarification of her cardiomyopathy for today
NSVT and short runs of AT as well
- Few runs of AT and NSVT last 24 hours
Troponin elevation from acute, non-ischemic myocardial injury in the setting of acute CHF, peak pBNP 0.262
Nephrotic range proteinuria
- S/p Kidney biopsy
Acute Pulmonary Embolism with pulmonary infarction
Suspected Ovarian V thrombosis noted on CTA
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
- Hematology involved => phlebotomy/Hydrea
HTN
Neuro/Psyh
- Dr. De Paz elicited hx from pt friend of 'decrease in memory, poor judgment and subtle personality change including mistrust of some of her outpt physicians'.
Several old infarcts on brain MRI => per medicine
Subjective:
Feels a better
Brain MRI 10/14/2025: IMPRESSION: No acute infarct. Mild chronic infarct involving the posterior left temporal and parietal lobes. 2 tiny chronic lacunar infarcts in the left thalamus. Minor chronic white matter ischemic change.
Echo 10/12/2025
SUMMARY
1. Left ventricle is mildly dilated with severely reduced systolic function. LVEF 25%.
2. Severe global hypokinesis with sparing of the basal to mid anterior, anterolateral, and inferolateral iyer.
3. Stage II diastolic dysfunction suggestive of abnormal relaxation and increased filling pressures.
4. Mildly decreased RV systolic function.
5. Moderate functional mitral regurgitation.
6. Mild to moderate tricuspid regurgitation with moderately elevated PASP (52 mmHg).
7. Pleural effusion is noted.
8. No prior study available for comparison
CXR 10/11/2025:
IMPRESSION:
1. MODERATE ACUTE INTERSTITIAL and ALVEOLAR CARDIOGENIC PULMONARY EDEMA.
2. Small bilateral pleural effusions.
3. Moderate cardiomegaly.
4. ACUTE PULMONARY INFARCTS in the left lower and right upper lobes.
CTA Chest/Abd/pelvis 10/10/2025:
IMPRESSION:
Examination is positive for pulmonary embolism. Most proximal branch point of the segmental pulmonary arteries. No evidence for significant right heart strain.
2 focal areas of parenchymal opacity, one in the lateral left lower lobe and the second in the posterolateral and inferior right upper lobe. Appearance suspicious for focal areas of infarction.
Small to moderate bilateral pleural effusions with adjacent dependent atelectasis.
Overall heart size is enlarged and the left ventricle appears dilated. No evidence for significant pericardial effusion.
Suboptimal phase for evaluation of the main portal vein. Given this limitation, the main portal vein appears patent as well as its branches. The splenic vein appears patent. Opacification of the SMV is not adequate for evaluation.
No evidence for significant arterial embolism within the abdomen and pelvis.
Hepatomegaly and splenomegaly.
Diffuse fatty infiltration of the liver.
Probable thrombus within the left ovarian vein.
Minimal amount of ascites in the right upper quadrant adjacent to the anterior margin of the liver.
Diffuse subcutaneous edema, greater in the abdomen, pelvis, and proximal thighs when compared to the chest.
Physical Exam
Vital Signs/Labs
Vital Signs
Temp Pulse Resp BP Pulse Ox
97.7 F 84 18 125/77 97
10/14/25 11:15 10/14/25 11:15 10/14/25 11:15 10/14/25 11:15 10/14/25 11:29
10/13/25 10/14/25 10/15/25
06:59 06:59 06:59
Actual Weight 62.681 kg 61.462 kg
10/14/25 06:28
10/14/25 06:28
PT 19.5 Sec (11.4-14.6) H 10/11/25 06:23
INR 1.63 10/11/25 06:23
APTT > 200.0 Sec (23.4-35.0) H* 10/14/25 06:28
Magnesium 1.7 mg/dl (1.6-2.3) 10/13/25 09:32
Magnesium Cancelled 10/13/25 09:32
Triglycerides 95 mg/dl (10-149) 10/13/25 09:32
Triglycerides Cancelled 10/13/25 09:32
LDL Cholesterol, Calc 86 mg/dl 10/13/25 09:32
LDL Cholesterol, Calc Cancelled 10/13/25 09:32
VLDL Cholesterol, Calc 19 mg/dl (0-30) 10/13/25 09:32
VLDL Cholesterol, Calc Cancelled 10/13/25 09:32
HDL Cholesterol 41 mg/dl 10/13/25 09:32
HDL Cholesterol Cancelled 10/13/25 09:32
TSH 3.68 uIU/ml (0.47-4.68) 10/10/25 06:47
10/09/25
19:22
Hxx-J-Zeyrfjyyqlv Pept > 11408
Data Reviewed
-
Date of Service: October 14, 2025
--- NOTE | 2025-10-14 14:38 | W.PN.NEPH.PH ---
Today's Communication / Plan
-
follo wBMP
Assessment/Plan
-
Assessment
Polycythemia vera
Hypertension
Lower extremity edema
Nephrotic range proteinuria
Bilateral pulmonary embolus with pulmonary infarction
Ovarian vein thrombosis
Acute CHF unknown EF
vit D def
Plan
await Kidney bx result
follow BMP
continue to diurese
cath per cardiology
-
-
Date of Service: October 14, 2025
CC / HPI / ROS
-
Chief Complaint:
Proteinuria,
History of Present Illness:
cr stable 0.9
K nl
BP stable
Hgb 16.3
on lasix for edema
Review of Systems:
no cp or sob
edema improving
Labs
-
Labs:
WBC 13.8 10^3/uL (4.8-10.8) H 10/14/25 06:28
RBC 6.05 10^6/uL (4.20-5.40) H 10/14/25 06:28
Hgb 16.3 g/dL (12.0-16.0) H 10/14/25 06:28
Hct 50.3 % (37.0-47.0) H 10/14/25 06:28
Plt Count 451 10^3/uL (130-400) H 10/14/25 06:28
Sodium 135 mmol/L (135-145) 10/14/25 06:28
Potassium 3.7 mmol/L (3.5-5.1) 10/14/25 06:28
Chloride 102 mmol/L (98-107) 10/14/25 06:28
Carbon Dioxide 27 mmol/L (22-30) 10/14/25 06:28
BUN 20 mg/dl (7-17) H 10/14/25 06:28
Creatinine 0.9 mg/dL (0.6-1.0) 10/14/25 06:28
eGFR > 60.00 10/14/25 06:28
Glucose 94 mg/dl (70-99) 10/14/25 06:28
Calcium 8.7 mg/dl (8.4-10.2) 10/14/25 06:28
Xrq-S-Lgserthhvnu Pept > 29896 pg/ml 10/09/25 19:22
Albumin 3.1 g/dl (3.5-5.0) L 10/11/25 06:23
Physical Exam
-
Vital Signs:
Vital Signs
Temp Pulse Resp BP Pulse Ox
97.7 F 84 18 125/77 97
10/14/25 11:15 10/14/25 11:15 10/14/25 11:15 10/14/25 11:15 10/14/25 11:29
Cardiovascular:: Regular rate and rhythm
Respiratory:: Bilateral: Coarse
Lung Excursion:: Normal
Abdomen:: Nontender and Soft
Bowel Sounds:: Normal
Extremity Edema:: +2: Bilateral:
--- NOTE | 2025-10-14 14:51 | CM ---
Chart reviewed. Cardiac cath today
WOC rec VN at d/c if patient is agreeable
Oral Lasix tomorrow
Plan: Home, will offer VN
[2025-10-14 16:01] LABS: ACT-LR - POC 266 Seconds (116-155)
[2025-10-14 16:31] LABS: ACT-LR - POC 303 Seconds (116-155)
--- NOTE | 2025-10-14 17:16 | TRANSFER ---
Pt went for cardiac cath, leaving the floor at @15:00. Post procedure, she was transferred to IVU. Pt's belongings were brought to her there and report was given to her nurse.
[2025-10-14] MEDS: LIPITOR 40 MG PO (17:42)
--- NOTE | 2025-10-14 17:53 | ITS.CL.ANGIO ---
Extruder - Angioplasty
Angioplasty
Procedure Report:
CARDIAC CATHETERIZATION REPORT
Date of Procedure: 10/14/2025
Referring: Brent Flores M.D.
Indication: Cardiomyopathy, non-ST elevation myocardial infarction.
PROCEDURE:
1. Right heart catheterization.
2. Coronary angiography.
3. Left heart catheterization.
4. Successful IVUS guided PCI of the mid LAD.
A total of 56 minutes of procedural/moderate sedation was utilized. An independent medical device sales consultant was present to assist with and help manage the patient's level of consciousness and physiologic status.
ACCESS:
1. 6 [place] right radial artery using a modified Seldinger technique.
2. 5 [place] right antecubital vein using a modified Seldinger technique under ultrasound guidance.
CATHETERS:
1. 5 [place] balloon wedge.
2. 5 [place] JL 3.5.
3. 5 [place] JR4.
4. 6 [place] EBU 3.5 guiding catheter.
HEMODYNAMIC DATA
Weight (kg): 61.2
AO (s/d/x, mmHg): 133/82/105
LV (s/x, mmHg): 137/21
PCWP (a/v/x, mmHg): 30/33/24
PA (s/d/x, mmHg): 65/37/46
RV (s/x, mmHg): 65/15
RA (a/v/x, mmHg): 19/16/15
SVC SvO2 (%): 70.3
IVC SvO2 (%): Not obtained.
RA SvO2 (%): Not obtained.
RV SvO2 (%): Not obtained.
PA SvO2 (%): 66.3
SaO2 (%): 91.0
Hbg (g/dL): 16.6
JOSH
CO (L/min): 3.55
CI (L/min/m2): 2.25
Thermodilution
CO (L/min): Not performed.
CI (L/min/m2): Not performed.
TPG (mmHg): 22
PVR (Hurst Units): 6.20
SVR (dynes*seconds*cm^-5): 2027
AVO2 Diff (Volume %): 5.58
Cardiac Power Output (peterson): 0.83 (MAP * CO)/451 (normal 0.5 - 0.7; 0.4 - 0.6 in the elderly)
Cardiac Power Index (peterson/m2): 0.52 (MAP * CI)/451
Ibeth: 1.87 (PAs-PAd)/RA
AV gradient (x, mmHg): None.
AV area (cm2): Normal.
MV gradient (x, mmHg): Not obtained.
MV area (cm2): Not obtained.
LEFT VENTRICULOGRAPHY: Not performed.
AORTOGRAPHY: Not performed.
CORONARY ANGIOGRAPHY
Dominance: Right.
Left Main: Short, bifurcating vessel. There is no coronary artery disease.
LAD: Large size vessel giving rise to 2 obtuse marginals. There is a 95-99% subtotal occlusion of the mid LAD with STEFAN I-II flow in the distal vessel. The apical vessel is chronically totally occluded.
Ramus: Congenitally absent.
Circumflex: Large size, nondominant vessel giving rise to 1 large obtuse marginal. There is no coronary artery disease. There is severe tortuosity in the obtuse marginal with 2 hairpin turns in the proximal vessel.
RCA: Large size, dominant vessel. There is no coronary artery disease.
INTERVENTIONS
1. Successful IVUS guided PCI of the 95-99% subtotal mid LAD occlusion (Medtronic Steve Paxton 3.5 x 38 MOOSE, postdilated with a 3.5 NC balloon) with reduction in stenosis to 0%, restoring STEFAN-3 flow.
Narrative:
The decision was made to proceed with percutaneous coronary intervention. The diagnostic catheter was removed over a wire and a 6Fr EBU 3.5 guiding catheter was advanced to the aortic root and seated in the left main coronary artery, which
subsequently subselected into the LAD. Additional heparin was given and a Power Turn Flex wire was advanced into the mid LAD. With some difficulty, we were able to traverse the 95-99% mid LAD lesion using the power turn flex wire. Because of the
course of the wire, I was concerned that we may have entered a dissection flap. A quick cross microcatheter was advanced over the power turn flex wire using a wire pinning technique. The quick cross entered the distal LAD with relative ease and
the power turn flex wire was withdrawn. Gentle low volume angiography was performed through the microcatheter which demonstrated that we were in the true lumen of the vessel. The power turn flex wire was readvanced through the microcatheter and
into the distal LAD. The quick cross was then removed using a wire pinning technique.
The subtotal mid LAD lesion was predilated with a 2.0 x 12 semi-compliant balloon to 12 mj. The decision was made to predilate more aggressively. The 2.0 x 12 semicompliant balloon was withdrawn and a 3.0 x 12 semicompliant balloon was advanced.
The lesion was predilated to 12 mj. Repeat angiography demonstrated lutheran of STEFAN-3 flow. It also demonstrated a new area of focal stenosis that was not previously appreciated. Nitroglycerin 150 mcg was given intracoronary which revealed
that the additional distal LAD lesion was coronary spasm and unrelated to the de jodi lesion. The semi-compliant balloon was removed and a Medtronic [place] Paxton 3.5 x 38 drug-eluting stent was advanced. The stent was deployed at 12 atmospheres.
The stent balloon was removed. A 3.5 x 20 noncompliant balloon was advanced into the stent and the stent was postdilated to 15 atmospheres in the distal margin and 18 mj in the proximal margin. The noncompliant balloon was withdrawn.
The decision was made to perform intracoronary imaging. An IVUS catheter was advanced through the guiding catheter and into the ostium of the artery. Ring down was performed once the imaging crystal was no longer inside of the guiding catheter. The
IVUS catheter was advanced into the distal LAD. Intravascular ultrasound was performed in a retrograde fashion using a slow pullback. Intracoronary imaging demonstrated good stent apposition and expansion throughout the entire stented segment.
There was a notable step up after the proximal margin of the stent but the stent was well-expanded and apposed in its landing zone. The IVUS catheter was withdrawn.
Angiography was performed in orthogonal views, confirming good stent expansion and an excellent angiographic result. The coronary wire was withdrawn and the guide was disengaged from the artery. The catheter was removed over a standard J-wire.
Closure Device: Vascular band for the right radial artery, manual pressure for the right antecubital vein.
Radiation dose (mGy): 550.77
DAP (cm2.Gy): 33.5503
Fluoroscopy time (minutes): 12.9
CONCLUSIONS:
1. Right dominant circulation with severe tortuosity in the proximal margin of the obtuse marginal and a 95-99% subtotal occlusion of the mid LAD with STEFAN I-II flow, status post successful IVUS guided PCI (Medtronic [place] Paxton 3.5 x 38 MOOSE,
postdilated with a 3.5 NC balloon) with reduction in stenosis to 0%, restoring STEFAN-3 flow.
2. Moderate to severely elevated filling pressures (LVEDP = 21 mmHg, PCWP = 24 mmHg at 61.2 kg).
3. 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
RECOMMENDATIONS:
1. Expectant management after cardiac catheterization via right radial/antecubital approach.
2. Limited weight bearing on the right wrist for one week.
3. Antithrombotic therapy with clopidogrel and direct oral anticoagulant (apixaban) given her pulmonary emboli and pelvic venous thromboses.
4. Aggressive secondary prevention with high-dose, high potency statin. Goal LDL <55.
5. OMT/GDMT as hemodynamics will tolerate.
6. Consider cautious diuresis starting tomorrow.
7. Repeat echocardiogram in 90 days after revascularization with GDMT.
8. Referral to cardiac rehab.
Copy to: Brent Flores M.D., Jimmy Paz M.D., Efe Branham, Kd.Ashly.
Morris Hwang DO, FACC, FACP
--- NOTE | 2025-10-14 19:44 | PTCARENOTE ---
Pt was transferred from [facility] into 2248. Pt is AAOx3 SR on the monitor Rt TR band in place and rt brachial vein dressing slight oozing. VSS Call tamez within reach. POC discussed with pt who verbalized understanding.
--- NOTE | 2025-10-14 21:11 | PTCARENOTE ---
ax3 t band off- no hematoma/oozing. pt ambulated to br had bm. afebrile- sinus 90's bp wnl- room air, lungs diminished at bases. hep gtt to start at 2200
[2025-10-15] VITALS (10 sets, daily range): BP systolic 112–132; BP diastolic 49–82; PULSE 85–86; O2SAT 97; BMI 26.8
[2025-10-15 04:37] LABS: Hematocrit 46.5 % (37.0-47.0); Hemoglobin 15.1 g/dL (12.0-16.0); Mean Corp Hgb Conc. 32.5 g/dL (33.0-37.0); Mean Corpuscular Volume 81.9 fL (81.0-99.0); Platelet Count 445 10^3/uL (130-400); Red Cell Dist. Width 19.8 % (11.5-14.5)
[2025-10-15 04:51] LABS: APTT 120.7 Sec (23.4-35.0)
[2025-10-15 05:02] LABS: Blood Urea Nitrogen 18 mg/dl (7-17); Calcium 8.5 mg/dl (8.4-10.2); Carbon Dioxide 28 mmol/L (22-30); Chloride 103 mmol/L (98-107); Estimated Creatinine Clearance 48 ml/min; Glucose 82 mg/dl (70-99); Potassium 3.9 mmol/L (3.5-5.1); Sodium 135 mmol/L (135-145); eGFR > 60.00
--- NOTE | 2025-10-15 07:06 | W.PN.HOSP.TC ---
Addendum entered and electronically signed by Ron Ivan MD 10/20/25 13:19:
Abnormal troponin - suspected from NSTEMI
Original Note:
Today's Communication/Plan
-
Discharge today
Assessment / Plan
Assessment / Plan
Physical Exam
General: No Apparent Distress
Respiratory: Crackles (Bibasilar with decreased breath sound) and Non Labored Respirations; Negative Wheezes or Accessory Resp Muscle Use
Cardiac: Regular Rhythm, S1/S2
GI: Soft and Nontender; Negative No Hepatosplenomegaly (Palpable liver edge)
Musculoskeletal: Edema, Right Lower Extrem and Edema, Left Lower Extrem
Skin: Warm
Neuro: AO x 3 and No Motor Deficits
Psych: Negative Confused or Agitated
Assessment/Plan
Acute Heart Failure with Reduced Ejection Fraction
Moderate to severely elevated filling pressures (LVEDP = 21 mmHg, PCWP = 24 mmHg at 61.2 kg) on cardiac cath 10/14/25
Suspected ischemic cardiomyopathy
Patient presented with progressive lower extremity edema.
Chest x-ray showed bilateral pleural effusion with pulmonary edema.
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
Echocardiogram 10/12/25 with EF of 25% with moderate MR. PASP 52 mmHg
Was previously on IV Lasix
GDMT: Toprol XL 25 mg BID, Valsartan 40 mg BID (later ARNI), Aldactone 12.5 mg daily, Farxiga 10 mg daily
Oral Lasix 40 mg daily
ECHO in 3 months
Cardiac rehab on discharge
Appreciate cardiology input.
Coronary angiography showed a 95/99% mid LAD subtotal occlusion, now s/p PCI (Medtronic negra 3.5 x 38 MOOSE) with reduction in stenosis to 0%, restoring STEFAN III flow.
Filling pressures are moderately to severely elevated (LVEDP = 21 mmHg, PCWP = 24 mmHg). There is moderate to severe pulmonary hypertension with a significantly elevated PVR (6.2 Hurst units).
Started clopidogrel and restarted heparin in anticipation of started DOAC tomorrow. She got one time aspirin in labeling associate. She will need some diuresis and surveillance of her pHTN to see if it improves with diuresis and anticoagulation.
SEE GROUP TEXT KERRI ORTIZ [facility] MAKING [facility] DECISION
Just an update. I discussed with René and Jaiden. Pt needs to be on eliquis 10 mg bid for 10 days then 5 mg bid.
Continue Plavix 75 mg for one year. After one year, plavix can be switched to ASA 81 mg qd.
Abnormal troponins
- suspected from acute coronary syndrome
Acute Coronary Syndrome, associated with low ejection fraction with hypokinesis of anterior, anterolateral, and inferolateral iyer, status post Percutaneous Coronary Intervention/Stent to Left Anterior Descending artery on 10/14/25
Electrocardiogram with evidence of anterior and inferior infarctions, echo with multiple wall motion abnormalities
Severe global hypokinesis with sparing of the basal to mid anterior, anterolateral, and inferolateral iyer
- Limited weight bearing on the right wrist for one week (post-cardiac cath instructions)
- Eliquis 10 mg BID for 10 days, followed by Eliquis 5 mg BID, as per my [employer] communication on 10/15/[address] Aggarwal and Dr. Hwang, and e commerce merchandising coordinator Dr. Ortiz
-Continue Plavix 75 mg daily for one year, but after one year, Plavix can be switched to ASA 81 mg daily -- as per my [employer] communication on 10/15/[address] Aggarwal and Dr. Hwang, and e commerce merchandising coordinator Dr. Ortiz
-Continue high-intensity statin
Acute bilateral PE with no right ventricular strain on the CT chest
No evidence of DVT in lower extremities.
Continue IV heparin.
NSVT and short runs of Atrial Tachycardia
- Few runs of AT and NSVT - with subtotal LAD occlusion.
- Continue Metoprolol
- Got stent to LAD coronary artery on 10/14/25
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
Patient on presentation had elevated white count and hematocrit.
On review of old records with hematology she had a prior diagnosis of polycythemia vera and was supposed to be on hydroxyurea.
Appreciate oncology input.
- s/p Therapeutic phleb x 1 unit
- Continue Hydroxyurea 500 mg PO BID.
-On 10/12/25, Dr. De Paz via [employer] communication mentioned that she spoke with patient's friend Sally: patient has been forgetful and a little paranoid for about the last two years; per the friend, others had noticed her starting to
slip a bit prior to jail about 6 months ago.
Given the evidence of prior LA�s and untreated polycythemia vera, wonder if she has been having small strokes. At the very least, she has poor insight. Hem/onc suggested that neuro and/or psych see her, based on her conversation on 10/13/25 morning
with patient's friend.
-MRI Brain, as per radiologist's report, showed mild chronic infarct involving the posterior left temporal and parietal lobes. 2 tiny chronic lacunar infarcts in the left thalamus.
-Strokes sounds embolic. Patient already will be on anticoagulation.
-Lipid Panel showed LDL cholesterol 86
-High intensity Lipitor 40 mg daily has been added
-Dr. Portillo aware of this case, will consider inpatient neurology consultation
-Carotid ultrasound with less than 50% stenosis bilaterally
-Single agent with Eliquis is fine; if patient gets a stent (after cardiac cath), then it will be Plavix plus Eliquis for 3 to 6 months, followed by Eliquis.
Possible left ovarian vein possible thrombosis-?
Bilateral pulmonary embolus with pulmonary infarction
-On IV heparin in hospital, switch to Eliquis on discharge
Nephrotic range proteinuria
Patient had a prior history of proteinuria
Follow-up renal biopsy results outpatient and follow-up with nephrology
Consult nephrology
Bilateral lower extremity swelling with negative Dopplers
- Wrap legs in jazmyn bandages
- Unclear whether edema is due to nephrotic syndrome, CHF or both
Mild hepatomegaly with mildly elevated bilirubin and alkaline phosphatase
-CT of the abdomen shows hepatomegaly and splenomegaly
Hypertension
-Continue Valsartan
Vitamin D Deficiency
-Continue Vitamin D supplementation
Small serous blister RLE
-Wound care
DVT prophylaxis: Heparin Drip
Patient is not a reliable historian, best to speak with patient's friend (authorized contact) for further information.
More than 30 minutes spent in discharge including
Final examination of the patient
Summarizing hospital stay
Instructions for continuing care to all relevant caregivers
Preparation of discharge records, prescriptions, and referral forms
Total time spent (in minutes): 47
Anticipated Discharge: Today
Subjective/Interval History
-
Date of Service: October 15, 2025
Patient was seen and examined. She denied any bleeding, chest pain, shortness of breath or any other symptoms or complaints. She stated she has been feeling good.
Objective Data
-
Labs:
Laboratory Results
10/14/25 10/15/25 10/15/25
18:46 04:16 11:30
WBC 13.1 H
Hgb 15.1
Hct 46.5
Plt Count 445 H
APTT Cancelled 120.7 H Pending
Sodium 135
Potassium 3.9
Chloride 103
Carbon Dioxide 28
BUN 18 H
Creatinine 0.9
Glucose 82
Calcium 8.5
Vital Signs:
Vital Signs
Temp Pulse Resp BP Pulse Ox
97.8 F 89 18 123/79 95
10/15/25 03:11 10/15/25 06:00 10/14/25 20:15 10/15/25 03:30 10/15/25 03:30
I&O
10/14/25 10/15/25 10/16/25
06:59 06:59 06:59
Intake Total 1140 / 1140
Balance 1140 / 1140
[2025-10-15] MEDS: LASIX 40 MG PO (07:59)
[2025-10-15] MEDS: FARXIGA 10 MG PO (07:59)
[2025-10-15] MEDS: ALDACTONE 12.5 MG PO (07:59)
[2025-10-15] MEDS: DIOVAN 40 MG PO (07:59)
[2025-10-15] MEDS: HYDREA 500 MG PO (07:59)
[2025-10-15] MEDS: TOPROL XL 25 MG PO (07:59)
[2025-10-15] MEDS: HEPARIN 25000 UNITS/250 ML IV (08:00)
[2025-10-15] MEDS: PLAVIX 75 MG PO (08:00)
--- NOTE | 2025-10-15 09:53 | PTCARENOTE ---
Patient received at change of shift out of bed ambulating in the room. Heparin gtt infusing at 1400 units/hr. Right radial cath with gauze and tegaderm C/D/I. Right brachial cath site with old oozing noted, new gauze and tegaderm applied, ecchymosis
noted, soft to palpation. Radial pulse palpable. The patient denies chest pain or pressure. SR on telemetry. SaO2 on RA 98-99%. OOB to chair for breakfast. Call tamez within reach. Care ongoing.
--- NOTE | 2025-10-15 10:14 | W.PN.CD ---
Today's Communication / Plan
-
- Switch Heparin to Eliquis 10 mg BID (10 days then 5 mg BID indefinitely)
- Continue Plavix with Eliquis. (Plan for Plavix 75 mg QDay for 1 year then ASDA 81 mg QD)
- Start Lasix 40 mg QD.
- Continue Lipitor and GDMT (Metoprolol, Valsartan, Farxigaand Aldactone)
Impression / Plan
-
Outpatient Marking Machine Operator: Emmanuel Rodriguez MD
Acute coronary syndrome
- Low EF with hypokinesis of anterior, anterolateral, and inferolateral iyer. s/p PCI to LAD on 10/14/25
- s/p LHC 10/14/25- Right dominant circulation with severe tortuosity in the proximal margin of the obtuse marginal and a 95-99% subtotal occlusion of the mid LAD with STEFAN I-II flow, status post successful IVUS guided PCI ([employer] Steve Acushnet
3.5 x 38 MOOSE, postdilated with a 3.5 NC balloon) with reduction in stenosis to 0%, restoring STEFAN-3 flow
- Moderate to severely elevated filling pressures (LVEDP = 21 mmHg, PCWP = 24 mmHg at 61.2 kg).
- Antithrombotic therapy with clopidogrel and direct oral anticoagulant (apixaban) given her pulmonary emboli and pelvic venous thromboses.
- Starting Plavix and Eliquis today.
Acute HFrEF
- Admit weight 79.9/77.6 kg. Now 61.5 kg as of 10/14/2025
- Feeling better, edema essentially resolved
- Admit CXR with pulmonary edema, pBNP >27,000 with normal Cr
- GDMT: HF BB (low dose), ARB (low dose valsartan, later ARNI), MRA (low dose Aldactone), will add SGLT2-I (Farxiga), later increase to goal doses
- Start oral Lasix today - 40 mg QD
- ECHO in 3 months.
Suspected ischemic cardiomyopathy (etiology of cardiomyopathy is not yet proven)
- EKG with evidence of anterior and inferior infarctions, echo with multiple wall motion abnormalities
- ECHO 10/12/25: severely reduced systolic function. LVEF 25%.
- Severe global hypokinesis with sparing of the basal to mid anterior, anterolateral, and inferolateral iyer.
- s/p PCI to LAD - 10/14/25
NSVT and short runs of AT as well
- Few runs of AT and NSVT - with subtotal LAD occlusion.
- On Metoprolol now
- Revascularized.
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
- Hematology involved => phlebotomy/Hydrea
- MRI Brain showed mild chronic infarct involving the posterior left temporal and parietal lobes. 2 tiny chronic lacunar infarcts in the left thalamus.
- Acute PE with infarction - s/p heparin
- Will switch Heparin to Eliquis 10 mg BID and continue plavix. If no bleeding then switch Eliquis to 5 mg BID in 10 days. Plan for Plavix for 1 year
Nephrotic range proteinuria
- S/p Kidney biopsy
Acute Pulmonary Embolism with pulmonary infarction
Suspected Ovarian V thrombosis noted on CTA
HTN
Neuro/Psyh
- Dr. De Paz elicited hx from pt friend of 'decrease in memory, poor judgment and subtle personality change including mistrust of some of her outpt physicians'.
Several old infarcts on brain MRI => per medicine
Subjective:
Feels a better
Brain MRI 10/14/2025: IMPRESSION: No acute infarct. Mild chronic infarct involving the posterior left temporal and parietal lobes. 2 tiny chronic lacunar infarcts in the left thalamus. Minor chronic white matter ischemic change.
Echo 10/12/2025
SUMMARY
1. Left ventricle is mildly dilated with severely reduced systolic function. LVEF 25%.
2. Severe global hypokinesis with sparing of the basal to mid anterior, anterolateral, and inferolateral iyer.
3. Stage II diastolic dysfunction suggestive of abnormal relaxation and increased filling pressures.
4. Mildly decreased RV systolic function.
5. Moderate functional mitral regurgitation.
6. Mild to moderate tricuspid regurgitation with moderately elevated PASP (52 mmHg).
7. Pleural effusion is noted.
8. No prior study available for comparison
CXR 10/11/2025:
IMPRESSION:
1. MODERATE ACUTE INTERSTITIAL and ALVEOLAR CARDIOGENIC PULMONARY EDEMA.
2. Small bilateral pleural effusions.
3. Moderate cardiomegaly.
4. ACUTE PULMONARY INFARCTS in the left lower and right upper lobes.
CTA Chest/Abd/pelvis 10/10/2025:
IMPRESSION:
Examination is positive for pulmonary embolism. Most proximal branch point of the segmental pulmonary arteries. No evidence for significant right heart strain.
2 focal areas of parenchymal opacity, one in the lateral left lower lobe and the second in the posterolateral and inferior right upper lobe. Appearance suspicious for focal areas of infarction.
Small to moderate bilateral pleural effusions with adjacent dependent atelectasis.
Overall heart size is enlarged and the left ventricle appears dilated. No evidence for significant pericardial effusion.
Suboptimal phase for evaluation of the main portal vein. Given this limitation, the main portal vein appears patent as well as its branches. The splenic vein appears patent. Opacification of the SMV is not adequate for evaluation.
No evidence for significant arterial embolism within the abdomen and pelvis.
Hepatomegaly and splenomegaly.
Diffuse fatty infiltration of the liver.
Probable thrombus within the left ovarian vein.
Minimal amount of ascites in the right upper quadrant adjacent to the anterior margin of the liver.
Diffuse subcutaneous edema, greater in the abdomen, pelvis, and proximal thighs when compared to the chest.
Physical Exam
Vital Signs/Labs
Vital Signs
Temp Pulse Resp BP Pulse Ox
98.2 F 87 20 124/49 99
10/15/25 07:16 10/15/25 08:00 10/15/25 07:16 10/15/25 07:59 10/15/25 08:00
10/14/25 10/15/2525
06:59 06:59 06:59
Actual Weight 61.462 kg 62.2 kg
10/15/25 04:16
10/15/25 04:16
PT 19.5 Sec (11.4-14.6) H 10/11/25 06:23
INR 1.63 10/11/25 06:23
APTT 120.7 Sec (23.4-35.0) H 10/15/25 04:16
Magnesium 1.7 mg/dl (1.6-2.3) 10/13/25 09:32
Magnesium Cancelled 10/13/25 09:32
Triglycerides 95 mg/dl (10-149) 10/13/25 09:32
Triglycerides Cancelled 10/13/25 09:32
LDL Cholesterol, Calc 86 mg/dl 10/13/25 09:32
LDL Cholesterol, Calc Cancelled 10/13/25 09:32
VLDL Cholesterol, Calc 19 mg/dl (0-30) 10/13/25 09:32
VLDL Cholesterol, Calc Cancelled 10/13/25 09:32
HDL Cholesterol 41 mg/dl 10/13/25 09:32
HDL Cholesterol Cancelled 10/13/25 09:32
TSH 3.68 uIU/ml (0.47-4.68) 10/10/25 06:47
10/09/25
19:22
Wzv-S-Pribqojgymh Pept > [id number]
Physical Exam
Constitutional: No acute distress and Comfortable
EENT: Anicteric and Moist mucous membranes
Cardiovascular: Rhythm & rate is regular, Pedal edema is absent and JVD pressure is normal
Respiratory: Respiratory effort normal, Lungs clear to auscul. and Wheeze Absent
GI: Soft, Non tender and Normal bowel sounds
Neuro/Psych: Alert, Oriented and AO x 3
Other: Cath Site
Data Reviewed
-
Date of Service: October 15, 2025
Medical Decision Making: Reviewed Test Results, Test Interpretation and Review of Case with other Provider
Labs: Labs Reviewed by me and Labs Ordered by me
Old Records: Reviewed
--- NOTE | 2025-10-15 10:15 | CM ---
Addendum entered by Tomeka Loja 10/15/25 13:13:
[facility] can accept the referral. Walker script obtained and given the physical therapy to issue a walker prior to discharge.
Original Note:
Reviewed chart. Miss Plata was transferred to IVU. Received consult to check on co-pay for Eliquis and Entresto. Telephone call to [facility] to check on co-pay Eliquis is $146.35 a month, Entresto is $170.19 a month. Met with Miss Plata to
review discharge plans. Reviewed co-pay for Eliquis, Farxiga, Jardiance and Eliquis with her. She is agreeable to the co-pays. Placed the on month free coupon for Entresto and Eliquis in her red discharge folder. She states her insurance is
changing in the new year. It will still be a [employer] product. She is aware the mcelroy of medication may change with new plan. She states prior to admission she resides alone in a one story home with a basement-laundry room. She states she has
three steps to enter the home. She states prior to admission she was independent with ambulation and adls. She states she does not have any DME in the home. She has a prescription plan with [facility] and uses [facility]. Will need to see
her current functional level to see if she will have any skilled care needs. Will need Physical therapy evaluation to assist with getting her a walker.Will need walker script. Reviewed [facility]NA services with her. She is agreeable to [facility] Services and
has selected [facility]. Telephone call to [facility] to make the referral. Sent referral. She states her niece is planning on staying with her for awhile when she goes home to assist in her care. Medical work-up in
progress. The discharge plan is return home with her niece staying with her and [facility] when medically stable.
[2025-10-15] MEDS: ELIQUIS 10 MG PO (11:15)
--- NOTE | 2025-10-15 11:20 | PTCARENOTE ---
Heparin gtt discontinued by cardiology. Patient to start Eliquis. First dose given, see JAN. Care ongoing.
--- NOTE | 2025-10-15 13:38 | W.PN.NEPH.PH ---
Today's Communication / Plan
-
diuretics per cardiology
Assessment/Plan
-
Assessment
Polycythemia vera
Hypertension
Lower extremity edema
Nephrotic range proteinuria
Bilateral pulmonary embolus with pulmonary infarction
Ovarian vein thrombosis
Acute CHF unknown EF
vit D def
Plan
await Kidney bx result still
follow BMP
dc planning
-
-
Date of Service: October 15, 2025
CC / HPI / ROS
-
Chief Complaint:
Proteinuria,
History of Present Illness:
cr stable 0.9
K nl
BP stable
on lasix for edema
Review of Systems:
no cp or sob
edema improving
Labs
-
Labs:
WBC 13.1 10^3/uL (4.8-10.8) H 10/15/25 04:16
RBC 5.68 10^6/uL (4.20-5.40) H 10/15/25 04:16
Hgb 15.1 g/dL (12.0-16.0) 10/15/25 04:16
Hct 46.5 % (37.0-47.0) 10/15/25 04:16
Plt Count 445 10^3/uL (130-400) H 10/15/25 04:16
Sodium 135 mmol/L (135-145) 10/15/25 04:16
Potassium 3.9 mmol/L (3.5-5.1) 10/15/25 04:16
Chloride 103 mmol/L (98-107) 10/15/25 04:16
Carbon Dioxide 28 mmol/L (22-30) 10/15/25 04:16
BUN 18 mg/dl (7-17) H 10/15/25 04:16
Creatinine 0.9 mg/dL (0.6-1.0) 10/15/25 04:16
eGFR > 60.00 10/15/25 04:16
Glucose 82 mg/dl (70-99) 10/15/25 04:16
Calcium 8.5 mg/dl (8.4-10.2) 10/15/25 04:16
Zqk-X-Otedhbuiafy Pept > 66708 pg/ml 10/09/25 19:22
Albumin 3.1 g/dl (3.5-5.0) L 10/11/25 06:23
Physical Exam
-
Vital Signs:
Vital Signs
Temp Pulse Resp BP Pulse Ox
97.5 F 88 18 114/72 97
10/15/25 11:17 10/15/25 11:17 10/15/25 11:17 10/15/25 11:17 10/15/25 11:17
Cardiovascular:: Regular rate and rhythm
Respiratory:: Bilateral: CTA
Lung Excursion:: Normal
Abdomen:: Nontender and Soft
Bowel Sounds:: Normal
Extremity Edema:: +3: Bilateral:
--- NOTE | 2025-10-15 14:20 | W.PN.ONC2 ---
Today's Communication / Plan
-
.
Impression
Impression
Polycythemia vera complicated by hepatosplenomegaly and now PE, pelvic vein thrombosis
Bilateral lower extremity swelling with negative Dopplers
Ischemic cardiomyopathy
Proteinuria
Coagulopathy
Plan
Plan
Polycythemia vera, untreated
-MRI w CVA, CT w PE & possible ovarian vein thrombus -heparin gtt transitioned to DOAC today
- can evolve into acute leukemia over the course of decades, but the short and medium term concerns are for blood clots and hyperviscosity symptoms and complications
- s/p Therapeutic phleb x 1 unit 10/13 with H/H improved to 15.1/46.5 today
- Hydrea 500 mg PO BID started 10/13
Proteinuria, microscopic hematuria
- Await renal biopsy
ACS - s/p PCI to LAD on 10/14/25, on plavix
HFrEF, ICM
Subjective/Objective
Subjective
no new complaints
afebrile, no hypoxia or hypotension
Vital Signs:
Vital Signs
Temp Pulse Resp BP Pulse Ox
97.5 F 88 18 114/72 97
10/15/25 11:17 10/15/25 11:17 10/15/25 11:17 10/15/25 11:17 10/15/25 11:17
Lab Results:
Laboratory Data
WBC 13.1 10^3/uL (4.8-10.8) H 10/15/25 04:16
Hgb 15.1 g/dL (12.0-16.0) 10/15/25 04:16
Plt Count 445 10^3/uL (130-400) H 10/15/25 04:16
PT 19.5 Sec (11.4-14.6) H 10/11/25 06:23
INR 1.63 10/11/25 06:23
APTT Cancelled 10/15/25 11:30
APTT Cancelled 10/15/25 11:30
eGFR > 60.00 10/15/25 04:16
Physical Exam
HEENT: Moist Mucous Membranes; No Jaundice
Pulmonary: Other (unlabored)
GI: Soft
Extremities: Edema
--- NOTE | 2025-10-15 16:24 | PN.CDI ---
CDI
- -
CDI:
Physician Documentation Request
Admit Date: 10/09/25 23:00
Dear Doctor Moncho,
Clinical Indicators:
Patient admitted with acute HFrEF.
10/14 Cath report, Indication: non-ST elevation myocardial Infarction.
PCI to mid LAD (95-99% subtotal occlusion)
10/15 Cardiology PN, 'Acute coronary syndrome -Low EF with hypokinesis of anterior, anterolateral, and inferolateral iyer.- EKG with evidence of anterior and inferior infarctions'
!12/16 PN, 'Abnormal troponin - suspected from acute coronary syndrome'
Troponin trend:
10/09/25 10/10/25 10/10/25
19:22 01:56 06:47
Troponin I 0.262 H* 0.251 H* 0.236 H*
Due to potentially conflicting documentation, could you clarify the etiology of the troponin elevation:
N STEMI
Acute coronary syndrome only
Other, please specify
Use of terms such as suspected, likely, concern for, or probable (associated with a specific diagnosis that is being evaluated, monitored, or treated as if it exists) are acceptable and can be coded in the inpatient setting, when documented at the
time of discharge.
Thank you,
RA Boyd RN
CDI Specialist
available via tiger text
Please use your independent medical judgment in providing your response.
--- NOTE | 2025-10-15 17:29 | PTCARENOTE ---
Discharge instructions reviewed with patient. Three copies of education regarding heart healthy diet provided for the patient. Telemetry and PIV INT removed. The patient verbalized understanding of instructions. Booklets and prescription coupons
given to patient. Discharged to home, niece staying with her this week. Friend driving her home.
== END 2025-10-15 17:53 | disposition home health service (06) | DRG 823 ==
LOC: IVU 23:00
PROVIDERS: Emergency Medicine; Internal Medicine; Internal Medicine Cardiovascular Disease; Radiology Vascular & Interventional Radiology; Registered Nurse; ADMITTING PHYSICIAN Hospitalist; ATTENDING PHYSICIAN Hospitalist; CONSULT PHYSICIAN Internal Medicine Cardiovascular Disease; CONSULT PHYSICIAN Internal Medicine Hematology & Oncology; CONSULT PHYSICIAN Specialist; EMERGENCY PHYSICIAN Emergency Medicine; FAMILY PHYSICIAN Family Medicine
PROC: 0TB03ZX Excision of Right Kidney, Percutaneous Approach, Diagnostic (ICD-10-PCS; 2025-10-12)
PROC: 027034Z Dilation of Coronary Artery, One Artery with Drug-eluting Intraluminal Device, Percutaneous Approach (ICD-10-PCS; 2025-10-14)
PROC: B2111ZZ Fluoroscopy of Multiple Coronary Arteries using Low Osmolar Contrast (ICD-10-PCS; 2025-10-14)
PROC: 4A023N8 Measurement of Cardiac Sampling and Pressure, Bilateral, Percutaneous Approach (ICD-10-PCS; 2025-10-14)
PROC: B240ZZ3 Ultrasonography of Single Coronary Artery, Intravascular (ICD-10-PCS; 2025-10-14)
DX: D45 Polycythemia vera (principal); I21.4 Non-ST elevation (NSTEMI) myocardial infarction; I26.99 Other pulmonary embolism without acute cor pulmonale; I50.21 Acute systolic (congestive) heart failure; L03.115 Cellulitis of right lower limb; I47.29 Other ventricular tachycardia; N17.9 Acute kidney failure, unspecified; D68.9 Coagulation defect, unspecified; J98.11 Atelectasis; N04.9 Nephrotic syndrome with unspecified morphologic changes; I82.890 Acute embolism and thrombosis of other specified veins; L97.919 Non-pressure chronic ulcer of unspecified part of right lower leg with unspecified severity; I24.9 Acute ischemic heart disease, unspecified; D47.1 Chronic myeloproliferative disease; I11.0 Hypertensive heart disease with heart failure; R80.9 Proteinuria, unspecified; I27.22 Pulmonary hypertension due to left heart disease; N80.9 Endometriosis, unspecified; I27.24 Chronic thromboembolic pulmonary hypertension; R31.9 Hematuria, unspecified; R09.82 Postnasal drip; I25.5 Ischemic cardiomyopathy; I08.1 Rheumatic disorders of both mitral and tricuspid valves; K76.0 Fatty (change of) liver, not elsewhere classified; I89.0 Lymphedema, not elsewhere classified; E55.9 Vitamin D deficiency, unspecified; R31.29 Other microscopic hematuria; R16.2 Hepatomegaly with splenomegaly, not elsewhere classified; Z66 Do not resuscitate; Z60.2 Problems related to living alone; Z88.1 Allergy status to other antibiotic agents; Z88.0 Allergy status to penicillin; Z87.01 Personal history of pneumonia (recurrent); Z90.710 Acquired absence of both cervix and uterus; Z79.82 Long term (current) use of aspirin; Z90.722 Acquired absence of ovaries, bilateral; Z11.52 Encounter for screening for COVID-19; Z86.73 Personal history of transient ischemic attack (TIA), and cerebral infarction without residual deficits; Z79.899 Other long term (current) drug therapy
CPT/HCPCS: 50200; 70551; 71046; 71260; 74177; 76700; 76942; 80048; 80053; 80061; 81003; 81015; 81050; 82248; 82306; 82570; 82728; 82784; 83516; 83520; 83521; 83540; 83550; 83605; 83735; 83880; 84155; 84156; 84165; 84443; 84484; 85014; 85018; 85025; 85027; 85347; 85610; 85730; 86038; 86063; 86160; 86255; 86334; 86335; 87040; 87086; 87502; 87811; 88305; 92978; 93005; 93306; 93460; 93880; 93970; 96365; 97163; 97167; 99152; 99153; 99285; C1725; C1753; C1769; C1874; C1894; C9600; Q9950; Q9967

== ENCOUNTER 2025-11-04 19:31 | Inpatient (IN) | payer OTHER, SELFPAY ==
[2025-11-04 14:43] VITALS: BP 111/74
[2025-11-04 15:51] LABS: Hematocrit 49.2 % (37.0-47.0); Hemoglobin 16.4 g/dL (12.0-16.0); Mean Corp Hgb Conc. 33.3 g/dL (33.0-37.0); Mean Corpuscular Volume 87.5 fL (81.0-99.0); Platelet Count 409 10^3/uL (130-400); Red Cell Dist. Width 25.2 % (11.5-14.5)
[2025-11-04 16:04] LABS: ALT (SGPT) 24 U/L (0-35); AST (SGOT) 27 U/L (14-36); Albumin 4.7 g/dl (3.5-5.0); Alkaline Phosphatase 91 U/L (38-126); Blood Urea Nitrogen 61 mg/dl (7-17); Calcium 9.4 mg/dl (8.4-10.2); Carbon Dioxide 22 mmol/L (22-30); Chloride 98 mmol/L (98-107); Glucose 78 mg/dl (70-99); Potassium 6.2 mmol/L (3.5-5.1); Sodium 132 mmol/L (135-145); Total Protein 7.0 g/dl (6.3-8.2); eGFR 28.23
[2025-11-04 16:55] LABS: Anisocytosis 2+; Macrocytosis 2+; Microcytosis 1+; Normal RBC Morphology No; Nucleated Red Blood Cells % 0 %; Poikilocytosis 1+; Polychromasia 1+; Tear Drop Red Blood Cells 1+
[2025-11-04 17:00] VITALS: BP 142/81
--- NOTE | 2025-11-04 17:03 | ED.GENMED ---
History of Present Illness
<Gary Corral PA-C - Last Filed: 11/04/25 17:51>
General
Chief Complaint: Abnormal Lab Value
Source: patient
Exam Limitations: none
Time Seen by Provider: 11/04/25 16:45
History of Present Illness
History of Present Illness:
70-year-old female presents in referral from family doctor as outpatient labs demonstrated elevated potassium. She has no complaints. She had a complicated hospitalization at the beginning of this month that included pulmonary embolisms, acute
coronary syndromes, stents placed in her heart. She was started on several different medications and had been doing well upon discharge. Routine follow-up labs were obtained as an outpatient and they demonstrated an elevated potassium. Of note,
patient was started on Bactrim about 4 days ago for dental infection by her dentist. She is on Lasix however she is also on spironolactone. She denies chest pain or shortness of breath. No vomiting. No fever. No other complaints
Past History
<Gary Corral PA-C - Last Filed: 11/04/25 17:51>
Past History
ED Past Medical History: HTN and Other (PNA); Negative NIDDM
ED Past Surgical History: Gynecological (Hysterectomy) and Orthopedic (Left meniscus repair)
Social History
Tobacco: Non-smoker
Alcohol: Occasional
Personal: Single
Living: alone (Independent in activities of daily living)
Phy Exam
<Gary Corral PA-C - Last Filed: 11/04/25 17:51>
Physical Exam
Physical Exam:
General: Well-appearing female no acute respiratory distress
HEENT: Normal cephalic atraumatic
Heart: Regular rate and rhythm
Lungs: Clear no wheeze
Abdomen soft nontender
Extremities: No cyanosis
Course
<Gary Corral PA-C - Last Filed: 11/04/25 17:51>
Orders/Labs/Results
Orders:
Orders
11/04/25 14:46
Electrocardiogram (*1) Urgent
Reason for Study: Other
Other Reason for Exam: abnormal lab elevated K+
11/04/25 14:47
EKG- Treatment ONCE
11/04/25 14:57
CMP [Comprehensive Metabolic Panel] Urgent
Complete Blood Count/With Diff Urgent
11/04/25 17:02
0.9% Sodium Chloride 500 ml [Nss] 500 ml IV BOLUS
11/04/25 17:42
Sodium Zirconium Cyclosilicate [Lokelma] 10 gram PO NOW STA
Abnormal Lab Results
11/04/25
14:57
RBC 5.62 H 10^6/uL
(4.20-5.40)
Hgb 16.4 H g/dL
(12.0-16.0)
Hct 49.2 H %
(37.0-47.0)
RDW 25.2 H %
(11.5-14.5)
Plt Count 409 H 10^3/uL
(130-400)
Absolute Lymphs (auto) 0.8 L 10^3/uL
(1.2-3.4)
Neutrophils % 80.8 H %
(42.2-75.2)
Lymphocytes % 11.4 L %
(20.5-51.1)
Sodium 132 L mmol/L
(135-145)
Potassium 6.2 H* mmol/L
(3.5-5.1)
BUN 61 H mg/dl
(7-17)
Creatinine 1.9 H mg/dL
(0.6-1.0)
11/04/25 14:57
11/04/25 14:57
Vital Signs
Initial and Last Documented VS:
Initial Vital Signs
Temp Pulse Resp BP Pulse Ox
97.6 F 79 16 111/74 98
11/04/25 14:43 11/04/25 14:43 11/04/25 14:43 11/04/25 14:43 11/04/25 14:43
Last Documented Vital Signs
Temp Pulse Resp BP Pulse Ox
97.6 F 79 16 111/74 98
11/04/25 14:43 11/04/25 14:43 11/04/25 14:43 11/04/25 14:43 11/04/25 17:07
<Curtis Hood MD - Last Filed: 11/04/25 17:56>
Orders/Labs/Results
Orders:
Orders
11/04/25 14:46
Electrocardiogram (*1) Urgent
Reason for Study: Other
Other Reason for Exam: abnormal lab elevated K+
11/04/25 14:47
EKG- Treatment ONCE
11/04/25 14:57
CMP [Comprehensive Metabolic Panel] Urgent
Complete Blood Count/With Diff Urgent
11/04/25 17:02
0.9% Sodium Chloride 500 ml [Nss] 500 ml IV BOLUS
11/04/25 17:42
Sodium Zirconium Cyclosilicate [Lokelma] 10 gram PO NOW STA
Abnormal Lab Results
11/04/25
14:57
RBC 5.62 H 10^6/uL
(4.20-5.40)
Hgb 16.4 H g/dL
(12.0-16.0)
Hct 49.2 H %
(37.0-47.0)
RDW 25.2 H %
(11.5-14.5)
Plt Count 409 H 10^3/uL
(130-400)
Absolute Lymphs (auto) 0.8 L 10^3/uL
(1.2-3.4)
Neutrophils % 80.8 H %
(42.2-75.2)
Lymphocytes % 11.4 L %
(20.5-51.1)
Sodium 132 L mmol/L
(135-145)
Potassium 6.2 H* mmol/L
(3.5-5.1)
BUN 61 H mg/dl
(7-17)
Creatinine 1.9 H mg/dL
(0.6-1.0)
11/04/25 14:57
11/04/25 14:57
Vital Signs
Initial and Last Documented VS:
Initial Vital Signs
Temp Pulse Resp BP Pulse Ox
97.6 F 79 16 111/74 98
11/04/25 14:43 11/04/25 14:43 11/04/25 14:43 11/04/25 14:43 11/04/25 14:43
Last Documented Vital Signs
Temp Pulse Resp BP Pulse Ox
97.6 F 79 16 111/74 98
11/04/25 14:43 11/04/25 14:43 11/04/25 14:43 11/04/25 14:43 11/04/25 17:07
<Gary Corral PA-C - Last Filed: 11/04/25 17:51>
MDM/Problems Addressed
Differential Diagnosis Includes:
Patient presenting for outpatient labs demonstrated high potassium. She is asymptomatic. Potassium today 6.2. BUN is 61 with a creatinine of 1.9. I suspect component of overdiuresis. She also is on Bactrim and a potassium sparing diuretic.
EKG reviewed which shows normal sinus rhythm with a left axis deviation but no hyperacute T waves
<Gary Corral PA-C - Last Filed: 11/04/25 17:51>
*Pulse Oximetry
SaO2: 98
Oxygen Mode of Delivery: Room air
Patient hypoxic: no
*Critical Care Note
Total Time (30-74mins, 75-104mins- exclusive of procedures): Not Applicable
<Gary Corral PA-C - Last Filed: 11/04/25 17:51>
Update Note
Update Note:
Fluids ordered. Lokelma ordered. Discussed with emergency room attending. Will admit to hospital for hyperkalemia. Suspect multifactorial between renal insufficiency, dehydration and potassium sparing diuretic.
ED Attending Note
<Gary Corral PA-C - Last Filed: 11/04/25 17:51>
-
Portions of this chart may have been created with voice recognition software.� Occasional wrong word or��sound alike� substitutions may have occurred due to the inherent limitations of voice recognition software.
<Curtis Hood MD - Last Filed: 11/04/25 17:56>
ED Attending Note
Patient seen and examined by attending physician: Yes
I performed the substantive portion of visit, reviewed & personally made and approve the management plan that is documented in note by myself or RONY.: Yes
ED Attending Note:
Patient sent in for abnormal labs. She feels fine. Recent admission for pulmonary emboli with focal infarction. Denies chest pain shortness of breath lightheadedness or weakness.
On exam patient is nontoxic in no distress. Warm and dry. Perfusing well. No respiratory distress. Regular rate and rhythm. Nonfocal grossly.
Labs show renal insufficiency and hyperkalemia. EKG is stable.
Likely prerenal as ischemia secondary to diuresis and meds. Spironolactone may also be contributing to the hyperkalemia. Will be admitting for med adjustments careful fluids
Discharge Plan
Departure
Patient Disposition: Admit
Date of Disposition: 11/04/25
Time of Disposition: 17:50
Presentation/result/management discussed w/ accepting MD/DO: Hospitalist
Discharge Problem:
Acute hyperkalemia
Prescriptions:
No Action
spironolactone 25 mg Tablet
12.5 mg PO DAILY Qty: 30 1RF
valsartan 40 mg Tablet
40 mg PO BID Qty: 60 1RF
ergocalciferol (vitamin D2) [Vitamin D2] 1,250 mcg (50,000 unit) Capsule
50,000 unit PO Q7D Qty: 7 0RF
Eliquis 5 mg Tablet
10 mg PO BID Qty: 38 0RF
Eliquis 5 mg tablet
5 mg PO BID Qty: 60 6RF
Rx Instructions:
Start on the evening of October 25, 2025 (after you finish your Eliquis 10 mg BID dose)
dapagliflozin propanediol 10 mg Tablet
10 mg PO DAILY Qty: 30 2RF
hydroxyurea 500 mg Capsule
500 mg PO BID Qty: 60 2RF
furosemide 40 mg Tablet
40 mg PO DAILY Qty: 30 2RF
atorvastatin 40 mg Tablet
40 mg PO QPM Qty: 30 2RF
clopidogrel 75 mg Tablet
75 mg PO DAILY Qty: 30 11RF
metoprolol succinate 25 mg Tablet Extended Release 24 Hr
25 mg PO BID Qty: 60 2RF
Referrals:
Efe Branham DO [Family Provider]
Interventions
Interventions:
*Neglect/Abuse Screening Last Done: 11/04/25 14:43
*Risk Screen - Suicide (C-SSRS) Last Done: 11/04/25 14:43
Discharge Date and Time
Print Language: WOLOF
[2025-11-04] MEDS: NSS 500 IV (17:30)
[2025-11-04] MEDS: LOKELMA 10 GRAM PO (17:58)
--- NOTE | 2025-11-04 18:27 | HPS.HSE ---
Family Physician
-
Family Physician: Efe Branham
Chief Complaint
-
Elevated potassium level outpatient labs
History of Present Illness
70-year-old female sent from primary doctor due to outpatient elevated potassium levels. Patient really started Bactrim 4 days ago for dental infection by dentist. She is also on Lasix and spironolactone for acute heart failure/cardiomyopathy EF
25%. She was treated approximately 1 month ago for pulmonary embolisms/pulmonary infarct, NSTEMI stent placement was started on Plavix.
She has past medical history of hypertension, bilateral pulmonary embolism pulmonary infarct 10/09/2025 left lateral lower lobe posterior lateral and inferior right upper lobe, CAD/NSTEMI status post PCI to LAD on 10/14/2025, chronic CHF reduced EF
cardiomyopathy EF 25%, pulmonary HTN, polycythemia vera with hepatosplenomegaly, left ovarian vein possible thrombus 10/09/2025 admission, splenomegaly, vitamin D deficiency, small echogenic focus upper right pole kidney 6 mm,CVA left temporal,
parietal lobes, chronic lacunar infarcts left thalamus.
Medical History
Past Medical History
Past Medical History: Reports Other
Additional Past Medical History:
Hypertension
bilateral pulmonary embolism pulmonary infarct 10/09/2025 left lateral lower lobe posterior lateral and inferior right upper lobe
CAD/NSTEMI status post PCI to LAD on 10/14/2025
chronic CHF reduced EF cardiomyopathy EF 25%,
Pulmonary HTN
Polycythemia vera with hepatosplenomegaly
Left ovarian vein possible thrombus 10/09/2025 admission
Splenomegaly
vitamin D deficiency
Small echogenic focus upper right pole kidney 6 mm
CVA left temporal, parietal lobes, chronic lacunar infarcts left thalamus
Chronic bilateral leg edema
Past Surgical History: Reports Other (Gynecological (Hysterectomy) and Orthopedic (Left meniscus repair))
Social History
Tobacco: Non-smoker
Alcohol: None
Drug: None
Family History
Family History: Not pertinent
Allergies / Home Medications
Allergies reflects when Allergies were last updated in [facility].
Home Medications with original date entered in [facility]
Allergy/Medication List:
Allergies
Allergy/AdvReac Type Severity Reaction Status Date / Time
cefadroxil (From [facility] [place]) Allergy Unknown Verified 10/09/25 17:18
erythromycin base Allergy Hives Verified 10/09/25 17:18
Penicillins Allergy Rash Verified 10/09/25 17:18
Home Medications
apixaban 5 mg tablet (Eliquis) 5 mg PO BID #60 tabs 10/15/25
apixaban 5 mg tablet (Eliquis) 10 mg (2 x 5 mg) PO BID #38 tabs 10/15/25
atorvastatin 40 mg tablet 40 mg PO QPM #30 tabs 10/15/25
clopidogrel 75 mg tablet 75 mg PO DAILY #30 tabs 10/15/25
dapagliflozin propanediol 10 mg tablet 10 mg PO DAILY #30 tabs 10/15/25
ergocalciferol (vitamin D2) 1,250 mcg (50,000 unit) capsule (Vitamin D2) 50,000 unit PO Q7D #7 caps 10/15/25
furosemide 40 mg tablet 40 mg PO DAILY #30 tabs 10/15/25
hydroxyurea 500 mg capsule 500 mg PO BID #60 caps 10/15/25
metoprolol succinate 25 mg tablet,extended release 24 hr 25 mg PO BID #60 tabs 10/15/25
spironolactone 25 mg tablet 12.5 mg (1/2 x 25 mg) PO DAILY #30 tabs 10/15/25
valsartan 40 mg tablet 40 mg PO BID #60 tabs 10/15/25
Review of Systems
-
History Source: Patient
A 12 point ROS was completed and negative except as noted: Yes
Constitutional: Denies Fever, Fatigue or Chills
EENT: Denies Sore Throat or Runny Nose
Respiratory: Denies Cough or Trouble Breathing
Cardiac: Denies Chest Pain, Diaphoresis, Palpitations or Syncope
Abdomen/GI: Denies Abdominal Pain, Nausea, Vomiting, Diarrhea, Constipated, Bloody Stools or Black Stools
: Denies Dysuria, Frequency, Flank Pain, Incontinence or Difficulty Voiding
Musculoskeletal: Denies Joint Pain or Edema
Skin: Denies Itching or Rash
Neurological: Denies Dizzy, Headache or Weakness
Endocrine: Reports No Symptoms
Hematologic/Lymphatic: Reports No Symptoms
Psych: Reports Calm
Physical Exam
Vital Signs
Vital Signs
Temp Pulse Resp BP Pulse Ox
97.6 F 79 16 111/74 98
11/04/25 14:43 11/04/25 14:43 11/04/25 14:43 11/04/25 14:43 11/04/25 17:07
Physical Exam
General: Comfortable and Conversant; No Pain, Fever or Chills
HEENT: NormoCephalic, Anicteric, Landfall Conjunctivae and No Ptosis
Respiratory: Clear; No Wheezes, Rales or Rhonchi
Cardiac: S1/S2, Regular Rhythm and Peripheral Edema (Trace bilateral lower leg); No Murmur, Rub or Gallop
Breast: Deferred by me
GI: Soft, Non Tender, Non Distended, Normal Bowel Sounds and No Hepatosplenomegaly
Rectal: Deferred by Provider
Genito-urinary: Deferred by me
Musculoskeletal: No Clubbing, No Cyanosis, Edema, Left Lower Extremity (Trace) and Edema, Right Lower Extremity (Trace); No Edema, Left Upper Extremity or Edema, Right Upper Extremity
Skin: Warm and Dry; No Rash
Neuro: AO x 3, No Motor Deficits, Nonfocal/grossly intact, Cranial Nerves Intact and No Sensory Deficits; No Slurred Speech, Facial Droop, Tremors or Sedated
Psych: Calm
Laboratory Results
-
11/04/25 14:57
11/04/25 14:57
Laboratory Results
Total Bilirubin 0.8 mg/dl (0.2-1.3) 11/04/25 14:57
AST 27 U/L (14-36) 11/04/25 14:57
ALT 24 U/L (0-35) 11/04/25 14:57
Alkaline Phosphatase 91 U/L (38-126) 11/04/25 14:57
Impression/Plan
-
Impression/plan:
Admit to telemetry
#Acute hyperkalemia associated with TONYA
Recent 4 days Bactrim due to dental issue
K6.2
IV NSS 500 cc bolus
--Lokelma
-Follow BMP
EKG: Normal sinus rhythm 75 bpm, QTc B433 MS
#TONYA likely secondary to diuretics/Bactrim use
Creat 1.9/bun 61-baseline 0.9 10/15/2025
- IV NSS bolus 500 cc
- Follow BMP
- Stop Bactrim, losartan, Lasix, spironolactone
#Bilateral pulmonary embolism with Pulmonary infarcts 10/09/2025
#Lateral left lower lobe and posterior lateral and inferior right upper lobe 10/09/2025
Continue Eliquis
#CAD/NSTEMI
#Status post PCI to LAD on 10/14/2025
-Continue Plavix 75 mg daily, atorvastatin 40 mg every afternoon
#Chronic CHF reduced EF/cardiomyopathy EF 25%
#Chronic bilateral lower leg edema
Hold Lasix and spironolactone due to TONYA
2D echo 10/12/2025: EF 25% severely reduced systolic function, severe global hypokinesis sparing of basal to mid anterior anterior lateral and inferolateral iyer, stage II diastolic dysfunction moderate MR,
mild to moderate TR, PASP 52 mmHg
#Polycythemia vera with hepatosplenomegaly
RBC 5.62, Hgb 16.4
#Left ovarian vein possible thrombus 10/09/2025 admit
#Chronic mild hepatomegaly
#Diffuse fatty liver
#Splenomegaly
#Vitamin D deficiency-continue vitamin D
#Small echogenic focus upper pole right kidney 6 mm
#CVA left temporal, parietal lobes, chronic lacunar infarcts left thalamus
- Found on MRI brain 10/09/2025
DVT prophylaxis
Continue Eliquis
Full code
--- NOTE | 2025-11-04 18:35 | W.PN.UPDATE ---
Update Note
Progress Note Update
This note serves as an addendum to the H&P by esthetician spa Thu Fuchs
HPI
70F
PMH of PCR , ACS, HFrEF, ICM, NSVT, Nephrotic range proteinuria, HTN sen to ER for abn OP labs for elevated potassium
- HX complicated hospitalization at the beginning of this month that included PE, ACS requentred stent
- OP Routine follow-up labs showed elevated potassium.
K 6.2 at ER
-NS 500 cc and Lokelma was given
Of note, Initiated Bactrim about 4 days ago for dental infection by her dentist. Also on Lasix and on spironolactone.
Relevant VS
Temp Pulse Resp BP Pulse Ox
97.6 F 79 16 111/74 98
11/04/25 14:43 11/04/25 14:43 11/04/25 14:43 11/04/25 14:43 11/04/25 17:07
PE
Gen: NAD
HEENT: anicteric
Neck: supple
Lungs: CTA
Cor: RRR S1 S2
Abdomen:�soft NT NG NRT
INSURANCE ADJUSTOR: AAO3 NFND
MS: no edema
Relevant Data
10/15/25 11/04/25
04:16 14:57
WBC 13.1 H 6.6
Hgb 15.1 16.4 H
Plt Count 445 H 409 H
10/15/25 11/04/25
04:16 14:57
Sodium 132 L
Potassium 6.2 H*
Carbon Dioxide 28 22
BUN 18 H 61 H
Creatinine 0.9 1.9 H
eGFR > 60.00 28.23
Last hospitalist admission: 10/09/25 - 10/15/25
ASSESSMENT & PLAN
TONYA associated with acute hyperkalemia
Multifactorial : Frusemide, Spironolactone and Bactrim
- s/p NS 500 cc and Lokelma
- Hold Frusemide, Spironolactone and Bactrim
- Hold ACEI , CALEB
- Repeat K in 4 hrs
- TLM Monitor
Recent HX s/p ACS s/p PCI to LAD on 10/14/25
- Known to CBC Card
- On Plavix and Apixaban
Recent acute HFrEF
61.5 kg on 10/14/2025
On GDMT:
HF BB (low dose)
Hold ARB (low dose valsartan, later ARNI), MRA (low dose Aldactone) due to Hyperkalemia s above
SGLT2-I (Farxiga),
Hold Lasix due to TONYA
- CBC card consult due to holding ARB, Frudsemide and spiranolactone for HFrEF
Suspected ICM (etiology of cardiomyopathy is not yet proven)
- ECHO 10/12/25: severely reduced systolic function. LVEF 25%. Severe global hypokinesis with sparing of the basal to mid anterior, anterolateral, and inferolateral iyer.
- s/p PCI to LAD - 10/14/25
HX NSVT and short runs of AT as well
- on BB
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
- Known to Hematology involved => phlebotomy/Hydrea
- Recent acute PE with infarction
- On Eliquis 5 mg mg BID and Plavix
Nephrotic range proteinuria - S/p Kidney biopsy
Acute Pulmonary Embolism with pulmonary infarction
Suspected Ovarian V thrombosis noted on CTA
HTN
- Hold spironolactone, frusemide and ARB
Several old infarcts on brain MRI
Recent MRI Brain showed mild chronic infarct involving the posterior left temporal and parietal lobes. 2 tiny chronic lacunar infarcts in the left thalamus.
Prior HX indicates- decrease in memory, poor judgment and subtle personality change including mistrust of some of her outpt physicians'.
DVT Px: Eliquis
Full code
IP TLM
[2025-11-04 19:08] VITALS: BP 138/74
[2025-11-04 20:00] VITALS: BP 119/76
[2025-11-04 20:57] VITALS: BP 120/68; BMI 23.9
--- NOTE | 2025-11-04 21:15 | PTCARENOTE ---
Rec'd patient from ER. Stable vitals. No complaints at this time. SR in 60- 70s on tele. POC reviewed with patient.
[2025-11-04] MEDS: ELIQUIS 5 MG PO (21:17)
[2025-11-04] MEDS: TOPROL XL 25 MG PO (21:17)
[2025-11-04] MEDS: HYDREA 500 MG PO (21:17)
[2025-11-04 22:14] VITALS: BMI 23.9
[2025-11-04 22:18] LABS: Blood Urea Nitrogen 58 mg/dl (7-17); Calcium 9.3 mg/dl (8.4-10.2); Carbon Dioxide 21 mmol/L (22-30); Chloride 103 mmol/L (98-107); Estimated Creatinine Clearance 21 ml/min; Glucose 125 mg/dl (70-99); Potassium 4.7 mmol/L (3.5-5.1); Sodium 134 mmol/L (135-145); eGFR 30.12
[2025-11-04 23:40] VITALS: BP 99/54
[2025-11-05] VITALS (7 sets, daily range): BP systolic 99–117; BP diastolic 54–68; PULSE 74; O2SAT 98; BMI 23.3
[2025-11-05 07:34] LABS: Hematocrit 48.1 % (37.0-47.0); Hemoglobin 16.3 g/dL (12.0-16.0); Mean Corp Hgb Conc. 33.9 g/dL (33.0-37.0); Mean Corpuscular Volume 88.4 fL (81.0-99.0); Nucleated Red Blood Cells % 0 %; Platelet Count 331 10^3/uL (130-400); Red Cell Dist. Width 25.2 % (11.5-14.5)
[2025-11-05] MEDS: PLAVIX 75 MG PO (09:07)
[2025-11-05] MEDS: FARXIGA 10 MG PO (09:07)
[2025-11-05] MEDS: HYDREA 500 MG PO ×2 (09:07→20:07)
[2025-11-05] MEDS: TOPROL XL 25 MG PO (09:07)
[2025-11-05] MEDS: ELIQUIS 5 MG PO ×2 (09:07→20:07)
[2025-11-05 10:11] LABS: ALT (SGPT) 25 U/L (0-35); AST (SGOT) 33 U/L (14-36); Albumin 4.5 g/dl (3.5-5.0); Alkaline Phosphatase 82 U/L (38-126); Blood Urea Nitrogen 53 mg/dl (7-17); Calcium 9.7 mg/dl (8.4-10.2); Carbon Dioxide 24 mmol/L (22-30); Chloride 102 mmol/L (98-107); Estimated Creatinine Clearance 22 ml/min; Glucose 137 mg/dl (70-99); Potassium 5.6 mmol/L (3.5-5.1); Sodium 136 mmol/L (135-145); Total Protein 7.0 g/dl (6.3-8.2); eGFR 32.26
--- NOTE | 2025-11-05 10:50 | CON.CAR ---
Consultation
Consultation Request
Date/Time Consultation Requested: 11/05/2025
Reason for Consultation: Cardiomyopathy with TONYA and hypotension
Medical History
-
Chief Complaint: Elevated potassium levels
History of Present Illness:
70-year-old woman with a history of HTN, bilateral PE with pulmonary infarct of the left lower lobe, posterior lateral and inferior right upper lobe infarction on 10/09/2025, CAD with NSTEMI s/p PCI to LAD on 10/14/2025, HFrEF, LVEF of 20 to 25%,
pulmonary hypertension, polycythemia vera with hepatosplenomegaly, left ovarian vein thrombus noted on 10/09/2025, vitamin D deficiency, focal right upper pole kidney echogenic infarct�6 mm, CVA, left temporal and parietal lobe CVA, chronic lacunar
infarct of the left thalamus who had noted to have recent dental abscess and infection for which she was started on Bactrim 4 days ago.
Patient presented with acute renal failure with elevated potassium levels.
Patient received normal saline and Lokelma. Potassium levels improved this morning. Holding spironolactone.
Lasix IV was given.
Brain MRI 10/14/2025: IMPRESSION: No acute infarct. Mild chronic infarct involving the posterior left temporal and parietal lobes. 2 tiny chronic lacunar infarcts in the left thalamus. Minor chronic white matter ischemic change.
Echo 10/12/2025
SUMMARY
1. Left ventricle is mildly dilated with severely reduced systolic function. LVEF 25%.
2. Severe global hypokinesis with sparing of the basal to mid anterior, anterolateral, and inferolateral iyer.
3. Stage II diastolic dysfunction suggestive of abnormal relaxation and increased filling pressures.
4. Mildly decreased RV systolic function.
5. Moderate functional mitral regurgitation.
6. Mild to moderate tricuspid regurgitation with moderately elevated PASP (52 mmHg).
7. Pleural effusion is noted.
8. No prior study available for comparison
CXR 10/11/2025:
IMPRESSION:
1. MODERATE ACUTE INTERSTITIAL and ALVEOLAR CARDIOGENIC PULMONARY EDEMA.
2. Small bilateral pleural effusions.
3. Moderate cardiomegaly.
4. ACUTE PULMONARY INFARCTS in the left lower and right upper lobes.
CTA Chest/Abd/pelvis 10/10/2025:
IMPRESSION:
Examination is positive for pulmonary embolism. Most proximal branch point of the segmental pulmonary arteries. No evidence for significant right heart strain.
2 focal areas of parenchymal opacity, one in the lateral left lower lobe and the second in the posterolateral and inferior right upper lobe. Appearance suspicious for focal areas of infarction.
Small to moderate bilateral pleural effusions with adjacent dependent atelectasis.
Overall heart size is enlarged and the left ventricle appears dilated. No evidence for significant pericardial effusion.
Suboptimal phase for evaluation of the main portal vein. Given this limitation, the main portal vein appears patent as well as its branches. The splenic vein appears patent. Opacification of the SMV is not adequate for evaluation.
No evidence for significant arterial embolism within the abdomen and pelvis.
Hepatomegaly and splenomegaly.
Diffuse fatty infiltration of the liver.
Probable thrombus within the left ovarian vein.
Minimal amount of ascites in the right upper quadrant adjacent to the anterior margin of the liver.
Diffuse subcutaneous edema, greater in the abdomen, pelvis, and proximal thighs when compared to the chest.
Allergies / Home Medications
Allergy/AdvReac Type Severity Reaction Status Date / Time
cefadroxil (From [facility]) Allergy Unknown Verified 10/09/25 17:18
erythromycin base Allergy Hives Verified 10/09/25 17:18
Penicillins Allergy Rash Verified 10/09/25 17:18
�Medication �Instructions �Recorded �Confirmed �Type
apixaban 5 mg tablet (Eliquis) 5 mg PO BID #60 tabs 10/15/25 11/04/25 Rx
apixaban 5 mg tablet (Eliquis) 10 mg (2 x 5 mg) PO BID #38 tabs 10/15/25 11/04/25 Rx
atorvastatin 40 mg tablet 40 mg PO QPM #30 tabs 10/15/25 11/04/25 Rx
clopidogrel 75 mg tablet 75 mg PO DAILY #30 tabs 10/15/25 11/04/25 Rx
dapagliflozin propanediol 10 mg 10 mg PO DAILY #30 tabs 10/15/25 11/04/25 Rx
tablet
ergocalciferol (vitamin D2) 1,250 50,000 unit PO Q7D #7 caps 10/15/25 11/04/25 Rx
mcg (50,000 unit) capsule (Vitamin
D2)
furosemide 40 mg tablet 40 mg PO DAILY #30 tabs 10/15/25 11/04/25 Rx
hydroxyurea 500 mg capsule 500 mg PO BID #60 caps 10/15/25 11/04/25 Rx
metoprolol succinate 25 mg 25 mg PO BID #60 tabs 10/15/25 11/04/25 Rx
tablet,extended release 24 hr
spironolactone 25 mg tablet 12.5 mg (1/2 x 25 mg) PO DAILY #30 10/15/25 11/04/25 Rx
tabs
valsartan 40 mg tablet 40 mg PO BID #60 tabs 10/15/25 11/04/25 Rx
Physical Exam
Vital Signs
Temp Pulse Resp BP Pulse Ox
97.7 F 74 16 117/68 100
11/05/25 07:25 11/05/25 07:25 11/05/25 07:25 11/05/25 07:25 11/05/25 07:25
Lab Results
11/05/25 06:16
11/05/25 09:25
Impression / Plan
-
Outpatient Refrigerator Room Clerk: Emmanuel Rodriguez MD
Acute renal failure
- Baseline creatinine 0.9 on 10/15/25 -now presented with a creatinine of 1.9
- Potassium on 11/04/2025 was 6.2 -5.6 this morning.
- Cr is improving and is 1.7 today.
- Holding Lasix, spironolactone, Bactrim, valsartan, Farxiga
- Received 500 mL of fluids
- Resume IV Lasix to remove additional potassium. If hypotensive, can give more IV fluid x 1
- Nephrotic range proteinuria
- S/p Kidney biopsy -during last admission. 10/12/2025-Biopsy reviewed [facility]�mild arteriolosclerosis and hyalinosis -minimal tubular atrophy and interstitial fibrosis
CAD
- Low EF with hypokinesis of anterior, anterolateral, and inferolateral iyer. s/p PCI to LAD on 10/14/25
- s/p LHC 10/14/25- Right dominant circulation with severe tortuosity in the proximal margin of the obtuse marginal and a 95-99% subtotal occlusion of the mid LAD with STEFAN I-II flow, status post successful IVUS guided PCI ([employer] [place]
3.5 x 38 MOOSE, postdilated with a 3.5 NC balloon) with reduction in stenosis to 0%, restoring STEFAN-3 flow
- Moderate to severely elevated filling pressures (LVEDP = 21 mmHg, PCWP = 24 mmHg at 61.2 kg).
- Antithrombotic therapy with clopidogrel and direct oral anticoagulant (apixaban) given her pulmonary emboli and pelvic venous thromboses.
- On Plavix and Eliquis. -Plan for Eliquis/Plavix for 1 year.
Acute HFrEF
- Discharge weight on 10/14/2025 was 61.5 kg. Now at 54 kg. Appears dehydrated.
- GDMT: HF BB (low dose), ARB (low dose valsartan, later ARNI), MRA (low dose Aldactone), SGLT2-I (Farxiga), -holding due to volume depletion.
-Holding oral Lasix today -Home dose is 40 mg QD
- ECHO in 3 months.
Suspected ischemic cardiomyopathy (etiology of cardiomyopathy is not yet proven)
- EKG with evidence of anterior and inferior infarctions, echo with multiple wall motion abnormalities
- ECHO 10/12/25: severely reduced systolic function. LVEF 25%.
- Severe global hypokinesis with sparing of the basal to mid anterior, anterolateral, and inferolateral iyer.
- s/p PCI to LAD - 10/14/25
NSVT and short runs of AT as well
- Few runs of AT and NSVT - with subtotal LAD occlusion.
- On Metoprolol now -continue metoprolol for now.
- Revascularized.
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
- Hematology involved => phlebotomy/Hydrea
- MRI Brain showed mild chronic infarct involving the posterior left temporal and parietal lobes. 2 tiny chronic lacunar infarcts in the left thalamus.
- Acute PE with infarction - s/p heparin
- On Eliquis 5 mg BID. Plan for Plavix for 1 year
Acute Pulmonary Embolism with pulmonary infarction
Suspected Ovarian V thrombosis noted on CTA
HTN
Neuro/Psyh
- Dr. De Paz elicited hx from pt friend of 'decrease in memory, poor judgment and subtle personality change including mistrust of some of her outpt physicians'.
Several old infarcts on brain MRI => per medicine
Data Reviewed
-
EKG: Tracing Personally Visualized and interpreted and Report Reviewed by me
Medical Tests (Nuc Med, Echo etc): Image Personally Visualized and interpreted
Labs: Labs Reviewed by me and Discussed with Physician
Old Records: Reviewed
[2025-11-05] MEDS: LOKELMA 10 GRAM PO ×3 (11:36→17:41)
--- NOTE | 2025-11-05 13:08 | W.CON.NEPH ---
Consultation
-
Date/Time Consultation Requested: 11/04/2025 at 1700
Date/Time Consultation Performed: 11/05/2025 1 PM
Requesting Provider: Alden Sung
Performing Provider: Dr. Narvaez
Reason for Consultation: Acute kidney injury and hyperkalemia
Medical History
-
Chief Complaint: Acute kidney injury
History of Present Illness:
70-year-old female sent from primary doctor due to outpatient elevated potassium levels. Patient really started Bactrim 4 days ago for dental infection by dentist. She is also on Lasix and spironolactone for acute heart failure/cardiomyopathy EF
25%. She was treated approximately 1 month ago for pulmonary embolisms/pulmonary infarct, NSTEMI stent placement was started on Plavix.
She has past medical history of hypertension, bilateral pulmonary embolism pulmonary infarct 10/09/2025 left lateral lower lobe posterior lateral and inferior right upper lobe, CAD/NSTEMI status post PCI to LAD on 10/14/2025, chronic CHF reduced EF
cardiomyopathy EF 25%, pulmonary HTN, polycythemia vera with hepatosplenomegaly, left ovarian vein possible thrombus 10/09/2025 admission, splenomegaly, vitamin D deficiency, small echogenic focus upper right pole kidney 6 mm,CVA left temporal,
parietal lobes, chronic lacunar infarcts left thalamus.
Positive for hyperkalemia and acute kidney injury with a admitting potassium 6.2 and a creatinine of 1.7 from creatinine normal 0.9
Status post renal biopsy for proteinuria October 12, 2025 was negative for glomerular disease. It showed sclerosis
[facility]. She follows with Dr. Hernandez
Past Medical History
medical history of hypertension, bilateral pulmonary embolism pulmonary infarct 10/09/2025 left lateral lower lobe posterior lateral and inferior right upper lobe, CAD/NSTEMI status post PCI to LAD on 10/14/2025, chronic CHF reduced EF
cardiomyopathy EF 25%, pulmonary HTN, polycythemia vera with hepatosplenomegaly, left ovarian vein possible thrombus 10/09/2025 admission, splenomegaly, vitamin D deficiency, small echogenic focus upper right pole kidney 6 mm,CVA left temporal,
parietal lobes, chronic lacunar infarcts left thalamus.
Social History
Tobacco: Non-Smoker
Alcohol: Daily
Family History
Family History: Not Pertinent
Allergies / Home Medications
Allergy/AdvReac Type Severity Reaction Status Date / Time
cefadroxil (From [facility] [place]) Allergy Unknown Verified 10/09/25 17:18
erythromycin base Allergy Hives Verified 10/09/25 17:18
Penicillins Allergy Rash Verified 10/09/25 17:18
�Medication �Instructions �Recorded �Confirmed �Type
apixaban 5 mg tablet (Eliquis) 5 mg PO BID #60 tabs 10/15/25 11/04/25 Rx
apixaban 5 mg tablet (Eliquis) 10 mg (2 x 5 mg) PO BID #38 tabs 10/15/25 11/04/25 Rx
atorvastatin 40 mg tablet 40 mg PO QPM #30 tabs 10/15/25 11/04/25 Rx
clopidogrel 75 mg tablet 75 mg PO DAILY #30 tabs 10/15/25 11/04/25 Rx
dapagliflozin propanediol 10 mg 10 mg PO DAILY #30 tabs 10/15/25 11/04/25 Rx
tablet
ergocalciferol (vitamin D2) 1,250 50,000 unit PO Q7D #7 caps 10/15/25 11/04/25 Rx
mcg (50,000 unit) capsule (Vitamin
D2)
furosemide 40 mg tablet 40 mg PO DAILY #30 tabs 10/15/25 11/04/25 Rx
hydroxyurea 500 mg capsule 500 mg PO BID #60 caps 10/15/25 11/04/25 Rx
metoprolol succinate 25 mg 25 mg PO BID #60 tabs 10/15/25 11/04/25 Rx
tablet,extended release 24 hr
spironolactone 25 mg tablet 12.5 mg (1/2 x 25 mg) PO DAILY #30 10/15/25 11/04/25 Rx
tabs
valsartan 40 mg tablet 40 mg PO BID #60 tabs 10/15/25 11/04/25 Rx
Review of Systems
-
No chest pain or shortness of breath
All other systems: Negative unless noted
Physical Exam
Vital Signs
Vital Signs
Temp Pulse Resp BP Pulse Ox
97.7 F 77 16 100/61 99
11/05/25 11:15 11/05/25 11:15 11/05/25 11:15 11/05/25 11:15 11/05/25 11:15
Lab Results
WBC 5.4 10^3/uL (4.8-10.8) 11/05/25 06:16
RBC 5.44 10^6/uL (4.20-5.40) H 11/05/25 06:16
Hgb 16.3 g/dL (12.0-16.0) H 11/05/25 06:16
Hct 48.1 % (37.0-47.0) H 11/05/25 06:16
Plt Count 331 10^3/uL (130-400) 11/05/25 06:16
Sodium 136 mmol/L (135-145) 11/05/25 09:25
Potassium 5.6 mmol/L (3.5-5.1) H 11/05/25 09:25
Chloride 102 mmol/L (98-107) 11/05/25 09:25
Carbon Dioxide 24 mmol/L (22-30) 11/05/25 09:25
BUN 53 mg/dl (7-17) H 11/05/25 09:25
Creatinine 1.7 mg/dL (0.6-1.0) H 11/05/25 09:25
eGFR 32.26 11/05/25 09:25
Glucose 137 mg/dl (70-99) H 11/05/25 09:25
Calcium 9.7 mg/dl (8.4-10.2) 11/05/25 09:25
Albumin 4.5 g/dl (3.5-5.0) 11/05/25 09:25
Physical Exam
General no acute distress
HEENT no cephalic atraumatic extraocular muscle intact no scleral icterus no JVD neck supple
lungs clear to auscultation bilateral
heart regular S1-S2 positive
abdomen soft nontender positive bowel sounds
extremities no edema pulses present bilateral
Neurologically nonfocal alert and oriented x 3
Skin no lesions no abrasions no petechiae
Psych normal affect no bizarre behavior
Data Reviewed
-
Labs: Labs Reviewed by me and Discussed with Patient
Assessment/Plan
-
70-year-old female sent from primary doctor due to outpatient elevated potassium levels. Patient really started Bactrim 4 days ago for dental infection by dentist. She is also on Lasix and spironolactone for acute heart failure/cardiomyopathy EF
25%. She was treated approximately 1 month ago for pulmonary embolisms/pulmonary infarct, NSTEMI stent placement was started on Plavix.
She has past medical history of hypertension, bilateral pulmonary embolism pulmonary infarct 10/09/2025 left lateral lower lobe posterior lateral and inferior right upper lobe, CAD/NSTEMI status post PCI to LAD on 10/14/2025, chronic CHF reduced EF
cardiomyopathy EF 25%, pulmonary HTN, polycythemia vera with hepatosplenomegaly, left ovarian vein possible thrombus 10/09/2025 admission, splenomegaly, vitamin D deficiency, small echogenic focus upper right pole kidney 6 mm,CVA left temporal,
parietal lobes, chronic lacunar infarcts left thalamus.
Positive for hyperkalemia and acute kidney injury with a admitting potassium 6.2 and a creatinine of 1.9 from creatinine normal 0.9
Status post renal biopsy for proteinuria October 12, 2025 was negative for glomerular disease. It showed sclerosis
On Farxiga per outpatient office. She follows with Dr. Hernandez
Assessment
Acute kidney injury creatinine 1.9 with normal baseline
Hyperkalemia 6.2
1.5 mg proteinuria status post renal biopsy October 12, 2025 showed glomerular sclerosis no GN
Cardiomyopathy EF 25%
Polycythemia vera
Hypertension
Lower extremity edema
Nephrotic range proteinuria
Bilateral pulmonary embolus with pulmonary infarction
Ovarian vein thrombosis
Acute CHF unknown EF
vit D def
Plan
Lokelma
Hold on IV fluids with EF 25%. She did get 500 cc bolus
Will order normal saline at 100 cc/h
Recheck labs this afternoon if potassium are normal or better and creatinine same or better would be okay with discharge from renal stand and outpatient follow
Acuity likely prerenal
Hold Farxiga
--- NOTE | 2025-11-05 13:27 | W.PN.HOSP.TC ---
Today's Communication/Plan
-
Lokelma
Labs this afternoon
Assessment / Plan
Assessment / Plan
Gen-AAOx3, NAD
HEENT-NC, AT, anicteric, clear oral mm
Neck-supple
CV-reg, no M, +S1/S2
Lungs-clear B/L
Abd-soft, NT, ND
Ext-no edema
Musculoskeletal-no cyanosis, clubbing
Skin-warm and dry
Neuro-grossly non-focal
Psych-calm, cooperative
TONYA -likely due to volume depletion, presentation with elevated BUN to creatinine ratio, as well as exposure to Bactrim. Creatinine coming down.
Bactrim discontinued. Hold diuretics.
Nephrology input noted.
She has a known history of nephrotic range proteinuria and getting worked up by nephrology. Just had a kidney biopsy 3-4 weeks ago.
Hyperkalemia -suspect due to adverse drug reaction as well as TONYA. Was taking Bactrim at home along with spironolactone and valsartan. Continue Lokelma, recheck labs this afternoon per nephrology.
Hyponatremia -improved.
Recent bilateral pulmonary emboli -continue Eliquis.
Essential hypertension -stable.
Chronic heart failure combined reduced EF/preserved EF -last echocardiogram 10/12/2025 showing LVEF 25%, severe global hypokinesis, stage II diastolic dysfunction, moderate functional MR, mild to moderate TR.
Currently compensated. Diuretics on hold for volume depletion.
CAD -s/p PCI to LAD on 10/14/2025. Cardiology recommends Eliquis and Plavix for 1 year.
Polycythemia vera -continue hydroxyurea. Hemoglobin 16.3.
Hyperlipidemia -atorvastatin.
Ovarian vein thrombosis
Vitamin D deficiency
Full code
Dispo -nephrology okay with discharge later today if potassium and renal function stable or better.
Anticipated Discharge: Today
Subjective/Interval History
-
Date of Service: November 05, 2025
Patient seen and examined. No complaints.
Objective Data
-
Labs:
Laboratory Results
11/05/25 11/05/25 11/05/25
06:16 09:25 17:00
WBC 5.4
Hgb 16.3 H
Hct 48.1 H
Plt Count 331
Sodium Cancelled 136 Pending
Potassium Cancelled 5.6 H Pending
Chloride Cancelled 102 Pending
Carbon Dioxide Cancelled 24 Pending
BUN Cancelled 53 H Pending
Creatinine Cancelled 1.7 H Pending
Glucose Cancelled 137 H Pending
Calcium Cancelled 9.7 Pending
Total Bilirubin Cancelled 1.1
AST Cancelled 33
ALT Cancelled 25
Alkaline Phosphatase Cancelled 82
Vital Signs:
Vital Signs
Temp Pulse Resp BP Pulse Ox
97.7 F 77 16 100/61 99
11/05/25 11:15 11/05/25 11:15 11/05/25 11:15 11/05/25 11:15 11/05/25 11:15
I&O
11/04/25 11/05/25 11/06/25
06:59 06:59 06:59
Intake Total 960 / 960
Balance 960 / 960
Review of Systems
-
History Source: Patient
All other systems: Reviewed and negative
[2025-11-05] MEDS: NSS 1000 IV ×2 (13:46→23:33)
[2025-11-05 14:34] LABS: Urine Character Slightly Cloudy (Clear)
[2025-11-05 15:28] LABS: Urine Urothelial Cell 0-2 /LPF (FEW)
--- NOTE | 2025-11-05 15:53 | PTCARENOTE ---
Patient ambulating to the bathroom with supervision. Patient is using call tamez appropriately. Patient has no c/o pain. Patient toleration 100% of meals and sitting in chair for 3 hours. Call tamez in reach.
[2025-11-05] MEDS: LIPITOR 40 MG PO (17:41)
[2025-11-05 18:25] LABS: Blood Urea Nitrogen 54 mg/dl (7-17); Calcium 8.8 mg/dl (8.4-10.2); Carbon Dioxide 21 mmol/L (22-30); Chloride 106 mmol/L (98-107); Estimated Creatinine Clearance 22 ml/min; Glucose 114 mg/dl (70-99); Potassium 5.0 mmol/L (3.5-5.1); Sodium 134 mmol/L (135-145); eGFR 32.26
[2025-11-05] MEDS: TOPROL XL PO (20:07)
[2025-11-06 03:20] VITALS: BP 116/63
[2025-11-06] MEDS: LOKELMA 10 GRAM PO (05:35)
[2025-11-06 06:00] VITALS: BMI 24.1
[2025-11-06 07:25] VITALS: BP 111/63
[2025-11-06 07:59] LABS: ALT (SGPT) 21 U/L (0-35); AST (SGOT) 25 U/L (14-36); Albumin 3.6 g/dl (3.5-5.0); Alkaline Phosphatase 70 U/L (38-126); Blood Urea Nitrogen 45 mg/dl (7-17); Calcium 8.9 mg/dl (8.4-10.2); Carbon Dioxide 21 mmol/L (22-30); Chloride 108 mmol/L (98-107); Estimated Creatinine Clearance 27 ml/min; Glucose 90 mg/dl (70-99); Potassium 4.2 mmol/L (3.5-5.1); Sodium 137 mmol/L (135-145); Total Protein 5.9 g/dl (6.3-8.2); eGFR 40.73
[2025-11-06] MEDS: TOPROL XL 25 MG PO (08:38)
[2025-11-06] MEDS: HYDREA 500 MG PO (08:38)
[2025-11-06] MEDS: ELIQUIS 5 MG PO (08:38)
[2025-11-06] MEDS: PLAVIX 75 MG PO (08:38)
[2025-11-06] MEDS: NSS 1000 IV (09:08)
--- NOTE | 2025-11-06 09:32 | W.PN.CD ---
Today's Communication / Plan
-
holding Lasix, spironolactone, Bactrim, valsartan, Farxiga with nephrology consulted
continue Toprol XL, eliquis, Plavix, atorvastatin
please call us back with additional questions
Impression / Plan
-
Outpatient [employer]ayer: Emmanuel Rodriguez MD
Acute kidney injury with hyperkalemia: improving
- Baseline creatinine 0.9 on 10/15/25 --presented with a creatinine of 1.9
- Potassium on 11/04/2025 was 6.2
- Holding Lasix, spironolactone, Bactrim, valsartan, Farxiga with nephrology consulted
- Nephrotic range proteinuria
- S/p Kidney biopsy -during last admission. 10/12/2025-Biopsy reviewed at [facility]�mild arteriolosclerosis and hyalinosis -minimal tubular atrophy and interstitial fibrosis
CAD
- Low EF with hypokinesis of anterior, anterolateral, and inferolateral iyer. s/p PCI to LAD on 10/14/25
- s/p LHC 10/14/25- Right dominant circulation with severe tortuosity in the proximal margin of the obtuse marginal and a 95-99% subtotal occlusion of the mid LAD with STEFAN I-II flow, status post successful IVUS guided PCI ([employer] [place]
3.5 x 38 MOOSE, postdilated with a 3.5 NC balloon) with reduction in stenosis to 0%, restoring STEFAN-3 flow
- Moderate to severely elevated filling pressures (LVEDP = 21 mmHg, PCWP = 24 mmHg at 61.2 kg).
- Antithrombotic therapy with clopidogrel and direct oral anticoagulant (apixaban) given her pulmonary emboli and pelvic venous thromboses.
- On Plavix and Eliquis. -Plan for Eliquis/Plavix for 1 year.
Chronic HFrEF
- Discharge weight on 10/14/2025 was 61.5 kg. Now at 56 kg--looks euvolemic
- GDMT: HF BB (low dose), ARB (low dose valsartan, later ARNI), MRA (low dose Aldactone), SGLT2-I (Farxiga), -holding due to volume depletion.
- ECHO in 3 months.
Suspected ischemic cardiomyopathy
- EKG with evidence of anterior and inferior infarctions, echo with multiple wall motion abnormalities
- ECHO 10/12/25: severely reduced systolic function. LVEF 25%.
- Severe global hypokinesis with sparing of the basal to mid anterior, anterolateral, and inferolateral iyer.
- s/p PCI to LAD - 10/14/25
NSVT and short runs of AT as well
- Few runs of AT and NSVT - with subtotal LAD occlusion.
-continue metoprolol
- Revascularized.
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
- Hematology involved => phlebotomy/Hydrea
- MRI Brain showed mild chronic infarct involving the posterior left temporal and parietal lobes. 2 tiny chronic lacunar infarcts in the left thalamus.
- Acute PE with infarction - s/p heparin
- On Eliquis 5 mg BID. Plan for Plavix for 1 year
Acute Pulmonary Embolism with pulmonary infarction
Suspected Ovarian V thrombosis noted on CTA
HTN
Neuro/Psyh
- Dr. De Paz elicited hx from pt friend of 'decrease in memory, poor judgment and subtle personality change including mistrust of some of her outpt physicians'.
Several old infarcts on brain MRI => per medicine
Physical Exam
Vital Signs/Labs
Vital Signs
Temp Pulse Resp BP Pulse Ox
97.6 F 69 16 111/63 98
11/06/25 07:25 11/06/25 08:38 11/06/25 07:25 11/06/25 08:38 11/06/25 07:25
11/05/25 11/06/25 11/07/25
06:59 06:59 06:59
Actual Weight 54.204 kg 56.019 kg
11/05/25 06:16
11/06/25 06:47
Physical Exam
Constitutional: No acute distress and Comfortable
EENT: Moist mucous membranes
Cardiovascular: Rhythm & rate is regular, Systolic murmur absent, Pedal edema present and JVD present
Respiratory: Respiratory effort normal and Lungs clear to auscul.
Neuro/Psych: AO x 3
Data Reviewed
-
Date of Service: November 06, 2025
EKG: Other (Tele: SR 60-70s, brief SVT)
Labs: Labs Reviewed by me
--- NOTE | 2025-11-06 10:55 | W.DS.TRANS ---
DC Summary - Change Management Administrator
-
Discharge Instructions:
Sleep Apnea Risk Low
Discharge Diagnosis/Procedures Volume depletion, acute kidney injury,
hyperkalemia
Diet Low Cholesterol,Low Fat
Activity As tolerated
Driving Restrictions As prior to admission
Bathing Restrictions None
Blood Work BMP in 1 week
Instructions:
Stand-Alone Forms:
Changes to Home Medications: Yes
Discharge Medications:
DC Medications w/original date entered in [employer]
apixaban 5 mg tablet (Eliquis) 5 mg PO BID #60 tabs 10/15/25
atorvastatin 40 mg tablet 40 mg PO QPM #30 tabs 10/15/25
clopidogrel 75 mg tablet 75 mg PO DAILY #30 tabs 10/15/25
dapagliflozin propanediol 10 mg tablet 10 mg PO DAILY #30 tabs 10/15/25
ergocalciferol (vitamin D2) 1,250 mcg (50,000 unit) capsule (Vitamin D2) 50,000 unit PO Q7D #7 caps 10/15/25
furosemide 40 mg tablet 40 mg PO DAILY #30 tabs 10/15/25
Held on 11/06/25. Instructions: Hold until next week and speak with your policy writer typist about when to resume
hydroxyurea 500 mg capsule 500 mg PO BID #60 caps 10/15/25
metoprolol succinate 25 mg tablet,extended release 24 hr 25 mg PO BID #60 tabs 10/15/25
spironolactone 25 mg tablet 12.5 mg (1/2 x 25 mg) PO DAILY #30 tabs 10/15/25
valsartan 40 mg tablet 40 mg PO BID #60 tabs 10/15/25
Home Medication Changes
Stop Bactrim
Hold furosemide until you speak with your policy writer typist next week
Pending Results: No
--- NOTE | 2025-11-06 12:28 | W.PN.HOSP.TC ---
Today's Communication/Plan
-
Discharge
Assessment / Plan
Assessment / Plan
Gen-AAOx3, NAD
HEENT-NC, AT, anicteric, clear oral mm
Neck-supple
CV-reg, no M, +S1/S2
Lungs-clear B/L
Abd-soft, NT, ND
Ext-no edema
Musculoskeletal-no cyanosis, clubbing
Skin-warm and dry
Neuro-grossly non-focal
Psych-calm, cooperative
TONYA -likely due to volume depletion, presentation with elevated BUN to creatinine ratio, as well as exposure to Bactrim. Creatinine coming down.
Bactrim discontinued. Hold diuretics.
Nephrology input noted.
She has a known history of nephrotic range proteinuria and getting worked up by nephrology. Just had a kidney biopsy 3-4 weeks ago.
Creatinine down to 1.4. Nephrology okay with resuming all home medications with the exception of furosemide.
Hyperkalemia -suspect due to adverse drug reaction as well as TONYA. Was taking Bactrim at home along with spironolactone and valsartan.
Potassium normalized.
Hyponatremia -improved.
Recent bilateral pulmonary emboli -continue Eliquis.
Essential hypertension -stable.
Chronic heart failure combined reduced EF/preserved EF -last echocardiogram 10/12/2025 showing LVEF 25%, severe global hypokinesis, stage II diastolic dysfunction, moderate functional MR, mild to moderate TR.
Currently compensated. Diuretics on hold for volume depletion.
CAD -s/p PCI to LAD on 10/14/2025. Cardiology recommends Eliquis and Plavix for 1 year.
Polycythemia vera -continue hydroxyurea. Hemoglobin 16.3.
Hyperlipidemia -atorvastatin.
Ovarian vein thrombosis
Vitamin D deficiency
Full code
Dispo -medically stable for discharge home today. Outpatient follow-up with PCP, nephrology, cardiology.
32 minutes spent in discharge process.
Anticipated Discharge: Today
Subjective/Interval History
-
Date of Service: November 06, 2025
Patient seen and examined, no complaints.
Objective Data
-
Labs:
Laboratory Results
11/06/25
06:47
Sodium 137
Potassium 4.2
Chloride 108 H
Carbon Dioxide 21 L
BUN 45 H
Creatinine 1.4 H
Glucose 90
Calcium 8.9
Total Bilirubin 1.0
AST 25
ALT 21
Alkaline Phosphatase 70
Vital Signs:
Vital Signs
Temp Pulse Resp BP Pulse Ox
97.6 F 69 16 111/63 98
11/06/25 07:25 11/06/25 08:38 11/06/25 07:25 11/06/25 08:38 11/06/25 09:55
I&O
11/05/25 11/06/25 11/07/25
06:59 06:59 06:59
Intake Total 960 / 960 2039
Balance 960 / 960 2039
Review of Systems
-
History Source: Patient
All other systems: Reviewed and negative
--- NOTE | 2025-11-06 12:33 | CM ---
Alert awake oriented patient who lives alone in a one story home with 3 steps to enter.She is independent in all ADLs and driving.She uses no adaptive devices but has a walker.
Alberto ARREDONDO / No SNF hx
Pharmacy [facility]
PCP DR Branham
plan Home with Alberto ARREDONDO fax [phone]
== END 2025-11-06 12:33 | disposition home health service (06) | DRG 682 ==
LOC: 4 EAST ACU 19:31
PROVIDERS: Clinical Nurse Specialist Family Health; ADMITTING PHYSICIAN Internal Medicine; ATTENDING PHYSICIAN Hospitalist; CONSULT PHYSICIAN Internal Medicine Nephrology; EMERGENCY PHYSICIAN Emergency Medicine; FAMILY PHYSICIAN Family Medicine; OTHER PHYSICIAN Internal Medicine Cardiovascular Disease
DX: N17.9 Acute kidney failure, unspecified (principal); I26.99 Other pulmonary embolism without acute cor pulmonale; I42.9 Cardiomyopathy, unspecified; I50.22 Chronic systolic (congestive) heart failure; E87.1 Hypo-osmolality and hyponatremia; E87.5 Hyperkalemia; I95.9 Hypotension, unspecified; Z79.01 Long term (current) use of anticoagulants; I11.0 Hypertensive heart disease with heart failure; D45 Polycythemia vera; Z86.711 Personal history of pulmonary embolism; E78.5 Hyperlipidemia, unspecified; E55.9 Vitamin D deficiency, unspecified; E86.9 Volume depletion, unspecified; Z79.02 Long term (current) use of antithrombotics/antiplatelets; Z79.899 Other long term (current) drug therapy
CPT/HCPCS: 80048; 80053; 81003; 81015; 82570; 84156; 85025; 93005; 97161; 99285